=== PATIENT | male | born 1975 | race Caucasian/White ===

== ENCOUNTER 2020-01-15 14:08 | Inpatient (IN) | payer OTHER ==
[2020-01-15] MEDS ORDERED: PANTOPRAZOLE SODIUM 40 MG in SODIUM CHLORIDE 100 ML IVPB ONE (14:18)
[2020-01-15] MEDS ORDERED: SODIUM CHLORIDE 1,000 ML IV STA (14:18)
[2020-01-15 15:06] LABS: BASO % 0.4 % (0-2.0); EOS % 0.1 % (0-4.5); HEMATOCRIT 42.4 % (35.4-49); HEMOGLOBIN 14.6 GM/dL (11.7-16.9); LYMPH % 23.3 % (8-40); MCH 33.2 pg (25.7-33.7); MCHC 34.5 g/dl (32.0-35.9); MEAN CELL VOLUME 96.2 fl (80-96); MEAN PLT VOLUME 7.1 fl (7.5-11.1); MONO % 5.8 % (3.8-10.2); NEUT % 70.4 % (42.8-82.8); PLATELET COUNT 220 K/MM3 (134-434); RBC 4.41 M/mm3 (4.00-5.60)
[2020-01-15] MEDS ORDERED: PANTOPRAZOLE SODIUM 40 MG/100 ML BAG IVPB ONE (15:07)
[2020-01-15] MEDS ORDERED: LORazepam 2 MG/ML SDV VIAL ONE ×2 (15:10→16:54)
[2020-01-15 15:36] LABS: ALBUMIN 4.2 g/dl (3.4-5.0); ALK PHOS 92 U/L (45-117); ANION GAP 11 MMOL/L (8-16); BILIRUBIN,TOTAL 0.7 mg/dL (0.2-1); BLOOD UREA NITROGEN 4.7 mg/dL (7-18); CALCIUM 8.5 mg/dL (8.5-10.1); CHLORIDE 98 mmol/L (98-107); CO2 26 mmol/L (21-32); CREATININE 0.8 mg/dL (0.55-1.3); GLUCOSE,RANDOM 202 mg/dL (74-106); POTASSIUM 3.4 mmol/L (3.5-5.1); SGOT/AST 45 U/L (15-37); SGPT/ALT 45 U/L (13-61); SODIUM 135 mmol/L (136-145); TOT PROT 8.2 g/dl (6.4-8.2)
--- NOTE | 2020-01-15 16:06 | PDOC ---
Attending Attestation - Resident Resident Name: Jacob Shore - ED Attending Attestation I have performed the following: I have examined & evaluated the patient, The case was reviewed & discussed with the resident, I agree w/resident's findings & plan - HPI HPI: 01/15/20 16:01 44-year-old male with history of alcoholism and alcoholic gastritis diagnosed on endoscopy several years ago prescribed Protonix in the past but noncompliant in the setting of recurrence of alcohol abuse, now sent from [facility] for evaluation of coffee-ground emesis and melena for the last 3 days. Patient began having dark vomiting 3 days ago associated with epigastric pain and decreased p.o. intake, was seen at [place] emergency department where labs were performed and he was discharged, presented to [facility] today with withdrawal symptoms in the setting of being unable to tolerate alcohol for the last few days, then was referred here for additional episodes of hematemesis/coffee-ground emesis this morning. Patient has been diagnosed with alcoholic gastritis but was never diagnosed with cirrhosis or varices, last emesis was this morning, complaining of some epigastric discomfort but no lightheadedness or syncope. Patient has also been noncompliant with his metformin - Physicial Exam PE: 01/15/20 16:03 Afebrile, tachycardia with elevated blood pressure alert seated comfortably in stretcher, Conversant and pleasant, no jaundice or pallor Dry mucosa Heart is regular slight tachycardia, lungs are clear Epigastric discomfort to palpation without guarding or rebound Neurological exam is normal Psych is within normal limits without acute ideations or hallucinations - Critical Care Time Total Critical Care Time: 30 Critical Care Statement: The care of this patient involved high complexity decision making to prevent further life threatening deterioration of the patient's condition and/or to evaluate & treat vital organ system(s) failure or risk of failure. - Medical Decision Making 01/15/20 16:04 44-year-old male with history of alcoholism presents with hematemesis/melena for 3 days with decreased p.o. intake, referred from [facility] for evaluation of possible upper GI bleed. Question alcoholic gastritis versus PUD versus variceal bleeding, no active bleeding now and no vomiting since this morning, hemodynamically stable with benign abdominal exam. Elevated blood pressure and tachycardia on arrival suggestive of withdrawal. r/o DKA Labs, urinalysis EKG, chest x-ray IV fluids, antacid IV benzodiazepine Reassess, will need admission for endoscopy 01/15/20 16:14 hgb normal, BUN also normal glucose elevated but AG normal LFTs nl improved withdrawal sxs. proceed with admit for cbc trend and GI evaluation, withdrawal tx Discharge - Discharge Information Problems reviewed: Yes Clinical Impression/Diagnosis: Coffee ground emesis Alcohol withdrawal Qualifiers: Complication of substance-induced condition: with unspecified complication Qualified Code(s): F10.239 - Alcohol dependence with withdrawal, unspecified Alcoholic gastritis Qualifiers: Chronicity: acute Gastritis bleeding: with bleeding Qualified Code(s): K29.21 - Alcoholic gastritis with bleeding Condition: Guarded - Follow up/Referral Referrals: Rosie Clark NP [Primary Care Provider] - - Patient Discharge Instructions - Post Discharge Activity
--- NOTE | 2020-01-15 16:40 | PDOC ---
History of Present Illness - General Chief Complaint: Vomiting Blood Stated Complaint: VOMITING BLOOD Time Seen by Provider: 01/15/20 14:25 - History of Present Illness Initial Comments: 01/15/20 16:35 44 M with DM (on metformin), alcoholic dependent from [facility] for 4 days of hematemesis. He had been drinking for 3 months, 1 L of Vodka per day. He started to have tarry hematesis for the past 4 days, also complained hematochemzia. Patient complained of nausea, chest pain. Last hematesis was this morning, tarry in nature. Patient admitted to lightheadness, tinnitus, no abdominal pain. He is showing sign of alcohol withdraw in the ED: trembling of the extremities, and tongue fasciculation. PMHX: as in HPI Meds: metformin Allergies: none Tob: none Etoh: daily Rec drugs: none. PCP: dylan kern NP. ROS GENERAL/CONSTITUTIONAL: No fever or chills. No weakness. HEAD, EYES, EARS, NOSE AND THROAT: No change in vision. No ear pain or discharge. No sore throat. CARDIOVASCULAR: + chest pain no shortness of breath RESPIRATORY: No cough, wheezing, or hemoptysis. GASTROINTESTINAL: No nausea, vomiting, diarrhea or constipation. GENITOURINARY: No dysuria, frequency, or change in urination. MUSCULOSKELETAL: No joint or muscle swelling or pain. No neck or back pain. SKIN: No rash NEUROLOGIC: No headache, vertigo, loss of consciousness, or change in strength/sensation. ENDOCRINE: No increased thirst. No abnormal weight change HEMATOLOGIC/LYMPHATIC: No anemia, easy bleeding, or history of blood clots. ALLERGIC/IMMUNOLOGIC: No hives or skin allergy. PE GENERAL: Awake, alert, and fully oriented, in no acute distress HEAD: No signs of trauma, normocephalic, atraumatic EYES: PERRLA, EOMI, sclera anicteric, conjunctiva clear ENT: Auricles normal inspection, hearing grossly normal, nares patent, oropharynx clear without exudates. Moist mucosa NECK: Normal ROM, supple, no lymphadenopathy, JVD, or masses LUNGS: No distress, speaks full sentences, clear to auscultation bilaterally HEART: Regular rate and rhythm, normal S1 and S2, no murmurs, rubs or gallops, peripheral pulses normal and equal bilaterally. ABDOMEN: Soft, nontender, normoactive bowel sounds. No guarding, no rebound. No masses EXTREMITIES : Normal inspection, Normal range of motion, no edema. No clubbing or cyanosis. NEUROLOGICAL: Cranial nerves II through XII grossly intact. Normal speech, normal gait, no focal sensorimotor deficits SKIN: Warm, Dry, normal turgor, no rashes or lesions noted 01/15/20 21:44 Past History - Medical History Allergies/Adverse Reactions: Allergies Allergy/AdvReac Type Severity Reaction Status Date / Time No Known Allergies Allergy Verified 01/15/20 14:17 Home Medications: Ambulatory Orders Losartan/Hydrochlorothiazide [Losartan-Hctz 100-25 mg Tab] 1 each PO DAILY 07/13/19 Metformin HCl [Glucophage] 1,000 mg PO DAILY 07/13/19 Asthma: No Cardiac Disorders: No Diabetes: Yes GI Disorders: No Disorders: No HTN: Yes Kidney Stones: No Seizures: No - Psycho-Social/Smoking History Smoking History: Unknown if ever smoked Have you smoked in the past 12 months: Yes Number of Cigarettes Smoked Daily: 10 - Substance Abuse Hx (Audit-C & DAST Scrn) In the last yr the pt used illegal drug/Rx for NonMed reason: No Score: Yes response is considered Positive: 0 Screen Result (Positive result requires Nsg. DAST-10): Negative *Physical Exam - Vital Signs Last Vital Signs Temp Pulse Resp BP Pulse Ox 98.6 F 109 H 16 148/114 H 96 01/15/20 14:12 01/15/20 14:12 01/15/20 14:12 01/15/20 14:12 01/15/20 14:12 ED Treatment Course - LABORATORY CBC & Chemistry Diagram: 01/15/20 14:47 01/15/20 14:47 - ADDITIONAL ORDERS Additional order review: Laboratory Results 01/15/20 01/15/20 01/15/20 15:12 14:47 14:47 Sodium 135 L Potassium 3.4 L Chloride 98 Carbon Dioxide 26 Anion Gap 11 BUN 4.7 L Creatinine 0.8 Est GFR (CKD-EPI)AfAm 125.04 Est GFR (CKD-EPI)NonAf 107.88 Random Glucose 202 H Calcium 8.5 Total Bilirubin 0.7 AST 45 H ALT 45 Alkaline Phosphatase 92 Creatine Kinase 191 Creatine Kinase Index 0.5 CK-MB (CK-2) 1.0 Troponin I < 0.02 Total Protein 8.2 Albumin 4.2 Stool Occult Blood Negative Blood Type O POSITIVE 01/15/20 14:47 RBC 4.41 MCV 96.2 H MCHC 34.5 RDW 13.0 D MPV 7.1 L Neutrophils % 70.4 Lymphocytes % 23.3 Monocytes % 5.8 Eosinophils % 0.1 Basophils % 0.4 - Medications Given in the ED: ED Medications Discontinued Medications Generic Name Dose Route Start Last Admin Trade Name Rishi PRN Reason Stop Dose Admin Sodium Chloride 1,000 mls @ 1,000 mls/hr 01/15/20 14:18 01/15/20 15:51 Normal Saline - IV 01/15/20 15:17 1,000 mls/hr ASDIR STA Administration Pantoprazole Sodium 40 mg/ 100 mls @ 200 mls/hr 01/15/20 14:18 01/15/20 15:13 Sodium Chloride IVPB 01/15/20 14:47 200 mls/hr ONCE ONE Administration Medical Decision Making - Medical Decision Making 01/15/20 21:45 44 M with DM (on metformin), alcoholic dependent from [facility] for 4 days of hematemesis Ativan was given for alcohol withdraw. EKG showed sinus tachycardia , vent rate 104 , qtc 454. Basic lab work revealed stable hemoglobin 14.6, the rest is unremarkable. Trop is negative, Liver enzymes are not impressive. Rectal exam showed no soraya blood. Fecal occult test was negative. 01/15/20 21:47 GI Consult was put. Patient is admitted to the inpatient team. Dr. aCin ([facility]) wanted to have him on Reglan 10 q6, INR, A1C, Ketone, blood sugar. These orders are relayed to the IM team. I put in the Regland 10 q6h. He thinks the ground coffee emesis was due to the content from gastroparesis. 01/15/20 21:50 01/15/20 21:51 01/15/20 21:55 Discharge - Discharge Information Problems reviewed: Yes Clinical Impression/Diagnosis: Coffee ground emesis Alcohol withdrawal Qualifiers: Complication of substance-induced condition: with unspecified complication Qualified Code(s): F10.239 - Alcohol dependence with withdrawal, unspecified Alcoholic gastritis Qualifiers: Chronicity: acute Gastritis bleeding: with bleeding Qualified Code(s): K29.21 - Alcoholic gastritis with bleeding Condition: Guarded - Admission Yes - Follow up/Referral - Patient Discharge Instructions - Post Discharge Activity
[2020-01-15] MEDS ORDERED: SODIUM CHLORIDE 1,000 ML IV SCH (17:15)
[2020-01-15] MEDS ORDERED: LORazepam 1 MG TABLET PO PRN (17:19)
--- NOTE | 2020-01-15 17:24 | HP ---
CHIEF COMPLAINT: coffee ground emesis PCP: HISTORY OF PRESENT ILLNESS: Patient is a 44 y/o male with a history of DM, HTN, and alcohol abuse who presents from [facility] for coffee ground emesis. He has had three days of abdominal pain, has noted blood in his vomit. He has melena. Reports he drinks 1 pint of alcohol a day. Patient denies, fever, chills, chest pain, nausea. In ED noted to have fasicultions and lightheadedness. ER course was notable for: (1) (2) (3) Recent Travel: PAST MEDICAL HISTORY: DM, HTN, and alcohol abuse PAST SURGICAL HISTORY: denies Social History: Smoking: Alcohol: 1 pint of vodka a day Drugs: Allergies No Known Allergies Allergy (Verified 01/15/20 14:17) HOME MEDICATIONS: Home Medications Medication Instructions Recorded Losartan/Hydrochlorothiazide 1 each PO DAILY 07/13/19 [Losartan-Hctz 100-25 mg Tab] Metformin HCl [Glucophage] 1,000 mg PO DAILY 07/13/19 REVIEW OF SYSTEMS CONSTITUTIONAL: Absent: fever, chills, diaphoresis, generalized weakness, malaise, loss of appetite, weight change HEENT: Absent: rhinorrhea, nasal congestion, throat pain, throat swelling, difficulty swallowing, mouth swelling, ear pain, eye pain, visual changes CARDIOVASCULAR: Absent: chest pain, syncope, palpitations, irregular heart rate, lightheadedness, peripheral edema RESPIRATORY: Absent: cough, shortness of breath, dyspnea with exertion, orthopnea, wheezing, stridor, hemoptysis GASTROINTESTINAL: Absent: abdominal pain, abdominal distension, nausea, vomiting, diarrhea, con stipation, melena, hematochezia GENITOURINARY: Absent: dysuria, frequency, urgency, hesitancy, hematuria, flank pain, genital pain MUSCULOSKELETAL: Absent: myalgia, arthralgia, joint swelling, back pain, neck pain SKIN: Absent: rash, itching, pallor HEMATOLOGIC/IMMUNOLOGIC: Absent: easy bleeding, easy bruising, lymphadenopathy, frequent infections ENDOCRINE: Absent: unexplained weight gain, unexplained weight loss, heat intolerance, cold intolerance NEUROLOGIC: Absent: headache, focal weakness or paresthesias, dizziness, unsteady gait, seizure, mental status changes, bladder or bowel incontinence PSYCHIATRIC: Absent: anxiety, depression, suicidal or homicidal ideation, hallucinations. PHYSICAL EXAMINATION Vital Signs - 24 hr 01/15/20 14:12 Temperature 98.6 F Pulse Rate 109 H Respiratory 16 Rate Blood Pressure 148/114 H O2 Sat by Pulse 96 Oximetry (%) GENERAL: Awake, alert, and fully oriented, in no acute distress. EYES: Pupils equal, round and reactive to light, extraocular movements intact, LUNGS: Breath sounds equal, clear to auscultation bilaterally. No wheezes, and no crackles. No accessory muscle use. HEART: Regular rate and rhythm, normal S1 and S2 without murmur, rub or gallop. ABDOMEN: Soft, nontender, not distended, normoactive bowel sounds, no guarding, no rebound, no masses. : preformed by ED resident, deffered second one MUSCULOSKELETAL: No CVA tenderness. LOWER EXTREMITIES: 2+ pulses, warm, well-perfused. No calf tenderness. No peripheral edema. PSYCHIATRIC: Cooperative. Good eye contact. Appropriate mood and affect. SKIN: Warm, dry, normal turgor, no rashes or lesions noted, normal capillary refill. CBC, BMP 01/15/20 14:47 01/15/20 14:47 ASSESSMENT/PLAN: Patient is a 44 y/o male with a history of DM, HTN, and alcohol abuse with cirrh osis who presents from [facility] for coffee ground emesis. #Coffee ground emesis/ upper GI bleed - hx cirrhosis, cannot exclude varices - protonix drip, MAPs stable for tele - consult GI - keep NPO - add reglan #alcohol abuse - librium taper for detox - AST mildly elevated, continue to trend - avoid hepatotoxic agents #hx DM - BGMS - SS #HTN - hold antihypertensive while question of actively bleeding Dispo: monitor on tele * patient needs to be med rec'd Family Medical History Family History: As Documented Visit type - Emergency Visit Emergency Visit: Yes ED Registration Date: 01/15/20 Care time: The patient presented to the Emergency Department on the above date and was hospitalized for further evaluation of their emergent condition. - New Patient This patient is new to me today: Yes Date on this admission: 01/16/20 - Critical Care Critical Care patient: No ATTENDING PHYSICIAN STATEMENT I saw and evaluated the patient. I reviewed the resident's note and discussed the case with the resident. I agree with the resident's findings and plan as documented. SUBJECTIVE: OBJECTIVE: ASSESSMENT AND PLAN:
[2020-01-15] MEDS: INSULIN SLIDING SCALE (NOVOLOG) 1 VIAL SQ SCH ×2 (17:44→23:43)
[2020-01-15] MEDS ORDERED: LACTATED RINGERS SOLUTION 1,000 ML/1,000 ML INFUS.BAG IV SCH (18:30)
--- OUTSIDE RECORDS SUMMARY | 2020-01-15 18:30 | XMS ---
:1975 Author Organization [facility] Care Team Providers Name Role Phone MERY BOSTON MD IP Unavailable LUDY AMADOR, IP Unavailable LUDY AMADOR, IP Unavailable LUDY AMADOR, IP Unavailable LUDY AMADOR, IP Unavailable LUDY AMADOR, IP Unavailable GOOD LEG MAN Unavailable GOOD LEG MAN Unavailable GOOD LEG MAN Unavailable GOOD LEG MAN Unavailable GOOD LEG MAN Unavailable MD Vandana Unavailable Unavailable Prieto Unavailable SPAIN DPM Unavailable DOROTHY KingP Unavailable Unavailable CASE Pitts Unavailable Unavailable DEIDRA RD Unavailable Unavailable JANELL ASSOCIATE AUTOMATION ENGINEER, M Unavailable + GRINION ASSOCIATE AUTOMATION ENGINEER, M Unavailable + GRINION ASSOCIATE AUTOMATION ENGINEER, M Unavailable China DO Unavailable Unavailable DO Jesse Unavailable Unavailable MD Sahil Unavailable Unavailable MIKE PA Unavailable LEAVELLE PA Unavailable LEAVELLE PA Unavailable + LEAVELLE PA Unavailable CASE Hart Unavailable Unavailable ANAND AMADOR Unavailable MD Khalif Unavailable Unavailable MD Khalif Unavailable Unavailable CARTER DDS Unavailable Patel Ramos DO Unavailable Unavailable Re-disclosure Warning The records that you are about to access may contain information from federally- assisted alcohol or drug abuse programs. If such information is present, then the following federally mandated warning applies: This information has been disclosed to you from records protected by federal confidentiality rules (42 CFR part 2). The federal rules prohibit you from making any further disclosure of this information unless further disclosure is expressly permitted by the written consent of the person to whom it pertains or as otherwise permitted by 42 CFR part 2. A general authorization for the release of medical or other information is NOT sufficient for this purpose. The Federal rules restrict any use of the information to criminally investigate or prosecute any alcohol or drug abuse patient.The records that you are about to access may contain highly sensitive health information, the redisclosure of which is protected by Article 27-F of the [facility] Public Health law. If you continue you may haveaccess to information: Regarding HIV / AIDS; Provided by facilities licensed or operated by the [facility] Office of Mental Health; or Provided by the [facility] Office for People With Developmental Disabilities. If such information is present, then the following [facility] mandated warning applies: This information has been disclosed to you from confidential records which are protected by state law. State law prohibits you from making any further disclosure of this information without the specific written consent of the person to whom it pertains, or as otherwise permitted by law. Any unauthorized further disclosure in violation of state law may result in a fine or retirement sentence or both. A general authorization for the release of medical or other information is NOT sufficient authorization for further disclosure. 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 Status Observation Data S ource(s) Description Advance No completed [place] [facility] [facility] Advance No [facility] [place] [facility] [facility] Advance No completed [place] [facility] Allergies and Adverse Reactions Type Description Substance Reaction Status Data Source(s ) Drug allergy No Known No Known NKA NO KNOWN [place] All[facility]ergies [facility] Allergy to No Known No known MAGALI (Moun t substance Allergies allergies [place] (situation) [facility]) Allergy to No Known No known MAGALI (Moun t substance Allergies allergies [place] (situation) [facility]) Allergy to No Known No known MAGALI (Moun t substance Allergies allergies [place] (situation) [facility]) No Known No Known No Known eCW2 (Form Allergies Allergies Allergies [facility]) Encounters Encounter Providers Location Date Indications Data Source(s ) Emergency Attender: Cherise 01/11/2020 VOMITING BLOOD [place] [facility]:34[facility] - 01/11/2020 06:15:00 PM EDT VOMITING BLOOD AM-EMPRESS Patient discharged. Inpatient Attender: Opal Ramos 12/16/2019 ALCOHOL W [facility] DOAttender: Aurelia 03:30:00 PM EDT - WITHDRAW [facility] MDAttender: 12/19/2019 Eliseo 10:37:00 AM EDT SchmittAdmitter: Opal Ramos DOConsultant: Katarina Ross MD ALCOHOL WITHDRAWAL Patient discharged. Emergency Attender: Vernon 10/31/2019 11:59:00 ALCHOHOL WIT HDRAWAL [place] [facility] AM EDT - 10/31/2019 ARR-AUTO Hospi kitty 01:17:00 PM EDT ALCHOHOL WITHDRAWAL ARR-AUTO Patient discharged. Forme Urgent Forme Urgent 06/26/2019 eCW2 (Form Care and Care and 12:00:00 AM Medical Joaquín r [facility] Wellness EST Urgent Care) Center Center Outpatient<t Attender: Laurel 05/28/2019 Degeneration of [place] ([facility] 10:30:00 AM Mathew Joe ID="sai MICHEL MD EST - MyopicDiabetes [place] goff rTypeDescrip 05/28/2019 Mellitus Type 2 - Healt [facility]) tionID0">OFF 11:59:00 PM Uncomplicated, ICE EST Controlled VISIT</td><t d>LAVERN MICHEL MD</td><td>[facility]</td>< td> 0</td><td><c ontent ID="encounte rDiagnosisID 0-0">Diabete s Mellitus Type 2 - Uncomplicate d, Controlled</ content>, <content ID="encounte rDiagnosisID 0-1">Degener ation of [place] Myopic</cont ent></td> Degeneration of [place] Myopic Diabetes Mellitus Type 2 - Uncomplicated , Controlled Outpatient<td Attender: 05/24/2019 MAGALI ID="encounterTypeDescriptionID1">[Patient AARON 05:08 :00 PM (Zach Diaz Encounter]</td><td>AARON MIKE MCKEON EST - Neighborhood PA</td><td> PA 05/24/2019 Health </td><td>05/24/2019</td><td></td> 11:59:00 PM [place]) EST Outpatient<td Attender: Isaiah 05/22/2019 [place] ID="encounterTypeDescriptionID2">COMPLETE AARON centeno 10:00 :00 AM ssme (Zach Diaz PHYSICAL EXAM</td><td>AARON BRITTNEYJANAE BRITTNEYJANAE Healt EST - n t Neighborhood PA</td><td>[facility] PA h 05/22/2019 [use Health [place]</td><td>05/22/2019</td><td><content Centlizzie 11:3 0:18 AM For Center) ID="encounterDiagnosisID2-0">Routine r EST S.o. History and Physical</content>, <content a.p. ID="encounterDiagnosisID2-1">Assessment Note [use For S.o.a.p. Note Free Free Text]</content></td> Text ]Rou nakul Hist ory and Phys ical Asse ssme nt [use For S.o. a.p. Note Free Text ]Rou nakul Hist ory and Phys ical Assessment [use For S.o.a.p. Note Free T ext] Routine History and Physical Assessment [use For S.o.a.p. Note Free T ext] Routine History and Physical Inpatient Attender: Alexandre 02/26/2019 CHEST PAIN, [place] Khalif MDAttender: 08:37:00 AM EST - ALCOHOL W [facility] 03/01/2019 DOAttender: Gebe 10:42:00 AM EST Jesse DOAdmitter: Alexandre Khalif MDConsultant: Katarina Ross MD CHEST PAIN, ALCOHOL WITHDRAWAL Patient discharged. Outpatient<td Attender: [facility] 04/03/2018 [place] ID="encounterTypeDescriptionID3">*No [facility] 04:45:00 P M (Cathay Show*</td><td>[facility] EST - Neighborhood LEG MAN</td><td>[facility] 04/03/2018 Health Center</td><td>04/03/2018</td><td></td> 11:59:0 0 PM Center) EST Outpatient<td Attender: [facility] 03/13/2018 D [place] ID="encounterTypeDescriptionID4">COMPLET [facility] 11:30: 00 AM i (Cathay E PHYSICAL EXAM</td><td>TRAN [facility] EST - a Neighborhood LEG MAN</td><td>[facility] 03/13/2018 b Health Center</td><td>03/13/2018</td><td><asya 01:05: 01 PM e Center) nt ID="encounterDiagnosisID4-0">Routine EST t History and Physical Adult (18 - 64 e Yrs)</content>, <content s ID="encounterDiagnosisID4-1">Preventive M Med Standardized Depression Screening: e Negative For Symptoms</content>, l <content l ID="encounterDiagnosisID4-2">Hypertensio i n (systemic)</content>, <content t ID="encounterDiagnosisID4-3">Hyperlipide u [place]</content>, <content s ID="encounterDiagnosisID4-4">Diabetes T Mellitus Type 2 Without y Complication</content>, <content p ID="encounterDiagnosisID4-5">Gerd</asya e nt></td> 2 W i t h o u t C o m p l i c a t i o n P r e v e n t i v e M e d S t a n d a r d i z e d D e p r e s s i o n S c r e e n i n g : N e g a t i v e F o r S y m p t o m s R o u t i n e H i s t o r y a n d P h y s i c a l A d u l t ( 4 Y r s ) D i a b e t e s M e l l i t u s T y p e 2 W i t h o u t C o m p l i c a t i o n P r e v e n t i v e M e d S t a n d a r d i z e d D e p r e s s i o n S c r e e n i n g : N e g a t i v e F o r S y m p t o m s R o u t i n e H i s t o r y a n d P h y s i c a l A d u l t ( 4 Y r s ) D i a b e t e s M e l l i t u s T y p e 2 W i t h o u t C o m p l i c a t i o n R o u t i n e H i s t o r y a n d P h y s i c a l A d u l t ( 4 Y r s ) G e r d G e r d G e r d P r e v e n t i v e M e d S t a n d a r d i z e d D e p r e s s i o n S c r e e n i n g : N e g a t i v e F o r S y m p t o m s H y p e r t e n s i o n ( s y s t e m i c ) H y p e r t e n s i o n ( s y s t e m i c ) H y p e r t e n s i o n ( s y s t e m i c ) H y p e r l i p i d e m i a H y p e r l i p i d e m i a H y p e r l i p i d e m i a Diabetes Mellitus Type 2 Without Complic ation Preventive Med Standardized Depression S creening: Negative For Symptoms Routine History and Physical Adult (18 - 64 Yrs) Diabetes Mellitus Type 2 Without Complic ation Preventive Med Standardized Depression S creening: Negative For Symptoms Routine History and Physical Adult (18 - 64 Yrs) Diabetes Mellitus Type 2 Without Complic ation Routine History and Physical Adult (18 - 64 Yrs) Gerd Gerd Gerd Preventive Med Standardized Depression S creening: Negative For Symptoms Hypertension (systemic) Hypertension (systemic) Hypertension (systemic) Hyperlipidemia Hyperlipidemia Hyperlipidemia Outpatient<td Attender: [facility] 09/26/2017 [place] ID="encounterTypeDescriptionID5">*No [facility] 05:30:00 P M (Cath[place] Show*</td><td>TRAN [facility] Center EDT - Neighborhood LEG MAN</td><td>[facility] 09/26/2017 Health Center</td><td>09/26/2017</td><td></td> 11:59:0 0 PM Center) EDT Outpatient<td Attender: [facility] 06/27/2017 P MAGALI ID="encounterTypeDescriptionID6">OFFICE [facility] 11:30:0 0 AM r (Cathay VISIT</td><td>TRAN GOOD LEG MAN Center EST - e Neighborhood LEG MAN</td><td>[facility] 06/27/2017 v Health Center</td><td>06/27/2017</td><td><asya 01:05: 24 PM e Center) nt EST n ID="encounterDiagnosisID6-0">Hypertensio t n (systemic)</content>, <content i ID="encounterDiagnosisID6-1">Hyperlipide v [place]</content>, <content e ID="encounterDiagnosisID6-2">Diabetes M Mellitus Type 2 Without e Complication</content>, <content d ID="encounterDiagnosisID6-3">Gerd</asya S nt>, <content t ID="encounterDiagnosisID6-4">Preventive a Med Standardized Depression Screening: n Negative For Symptoms</content>, d <content a ID="encounterDiagnosisID6-5">Elevated r Liver Enzymes</content></td> d i z e d D e p r e s s i o n S c r e e n i n g : N e g a t i v e F o r S y m p t o m s D i a b e t e s M e l l i t u s T y p e 2 W i t h o u t C o m p l i c a t i o n P r e v e n t i v e M e d S t a n d a r d i z e d D e p r e s s i o n S c r e e n i n g : N e g a t i v e F o r S y m p t o m s D i a b e t e s M e l l i t u s T y p e 2 W i t h o u t C o m p l i c a t i o n D i a b e t e s M e l l i t u s T y p e 2 W i t h o u t C o m p l i c a t i o n G e r d G e r d G e r d E l e v a t e d L i v e r E n z y m e s E l e v a t e d L i v e r E n z y m e s E l e v a t e d L i v e r E n z y m e s P r e v e n t i v e M e d S t a n d a r d i z e d D e p r e s s i o n S c r e e n i n g : N e g a t i v e F o r S y m p t o m s H y p e r t e n s i o n ( s y s t e m i c ) H y p e r t e n s i o n ( s y s t e m i c ) H y p e r t e n s i o n ( s y s t e m i c ) H y p e r l i p i d e m i a H y p e r l i p i d e m i a H y p e r l i p i d e m i a Preventive Med Standardized Depression S creening: Negative For Symptoms Diabetes Mellitus Type 2 Without Complic ation Preventive Med Standardized Depression S creening: Negative For Symptoms Diabetes Mellitus Type 2 Without Complic ation Diabetes Mellitus Type 2 Without Complic ation Gerd Gerd Gerd Elevated Liver Enzymes Elevated Liver Enzymes Elevated Liver Enzymes Preventive Med Standardized Depression S creening: Negative For Symptoms Hypertension (systemic) Hypertension (systemic) Hypertension (systemic) Hyperlipidemia Hyperlipidemia Hyperlipidemia Outpatient<td Attender: [facility] 05/23/2017 [place] ID="encounterTypeDescriptionID7">*[facility] 04:55:00 P M (Zach Diaz Show*</td><td>TRAN [facility] Center EST - Neighborhood LEG MAN</td><td>[facility] 05/23/2017 Health Center</td><td>05/23/2017</td><td></td> 11:59:0 0 PM Center) EST Outpatient<td Attender: [facility] 05/02/2017 MAGALI ID="encounterTypeDescriptionID8">[[facility] 10:39: 00 AM (Zach Diaz t Encounter]</td><td>TRAN GOOD LEG MAN Center EST - Neighborhood LEG MAN</td><td>[facility] 05/02/2017 Health Center</td><td>05/02/2017</td><td></td> 11:59:0 0 PM Center) EST Outpatient<td Attender: [facility] 04/11/2017 R MAGALI ID="encounterTypeDescriptionID9">COMPLET [facility] 03:00: 00 PM o (Zach Diaz E PHYSICAL EXAM</td><td>TRAN GOOD LEG MAN Center EST - u Neighborhood LEG MAN</td><td>[facility] 04/11/2017 t Health Center</td><td>04/11/2017</td><td><asya 04:21: 20 PM i Center) nt EST n ID="encounterDiagnosisID9-0">Overweight< e /content>, <content H ID="encounterDiagnosisID9-1">Preventive i Med Standardized Depression Screening: s Negative For Symptoms</content>, t <content o ID="encounterDiagnosisID9-2">Routine r History and Physical Adult (18 - 64 y Yrs)</content></td> a n d P h y s i c a l A d u l t ( 8 - 4 Y r s ) P r e v e n t i v e M e d S t a n d a r d i z e d D e p r e s s i o n S c r e e n i n g : N e g a t i v e F o r S y m p t o m s O v e r w e i g h t R o u t i n e H i s t o r y a n d P h y s i c a l A d u l t ( 8 - 4 Y r s ) P r e v e n t i v e M e d S t a n d a r d i z e d D e p r e s s i o n S c r e e n i n g : N e g a t i v e F o r S y m p t o m s O v e r w e i g h t R o u t i n e H i s t o r y a n d P h y s i c a l A d u l t ( 8 - 4 Y r s ) O v e r w e i g h t P r e v e n t i v e M e d S t a n d a r d i z e d D e p r e s s i o n S c r e e n i n g : N e g a t i v e F o r S y m p t o m s Routine History and Physical Adult (18 - 64 Yrs) Preventive Med Standardized Depression S creening: Negative For Symptoms Overweight Routine History and Physical Adult (18 - 64 Yrs) Preventive Med Standardized Depression S creening: Negative For Symptoms Overweight Routine History and Physical Adult (18 - 64 Yrs) Overweight Preventive Med Standardized Depression S creening: Negative For Symptoms Outpatient<td Attender: [facility] 12/06/2016 MAGALI ID="[id number]">DENTAL [facility] 11:30: 00 AM (Cathay INITIAL VISIT</td><td>NILSA CARTER CARTER DDS Center EDT - Neighborhood DDS</td><td>[facility] 12/06/2016 Health Center</td><td>12/06/2016</td><td></td> 11:59:0 0 PM Center) EDT Forme Specialty Medicine - (GM) Internal Forme 2016 eCW2 (Form Medicine Urgent Care 12:00:00 AM Medical and EDT Center & Wellness Urgent Care) Center Outpatient<td Attender: [facility] 10/11/2016 MAGALI ID="[id number]">*No [facility] 05:16:00 PM (Cathay Show*</td><td>TRAN [facility] Center EDT - Neighborhood LEG MAN</td><td>[facility] 10/11/2016 Health Center</td><td>10/11/2016</td><td></td> 11:59:0 0 PM Center) EDT Outpatient<td Attender: [facility] 08/16/2016 MAGALI ID="[id number]">DENTAL [facility] 03:30: 00 PM ([place] INITIAL VISIT</td><td>[facility] Center EDT - Neighborhood DDS</td><td>[facility] 08/16/2016 Health Center</td><td>08/16/2016</td><td></td> 11:59:0 0 PM Center) EDT Outpatient<td Attender: [facility] 07/12/2016 E MAGALI ID="[id number]">OFFICE [facility] 02:30: 00 PM l ([place] VISIT</td><td>TRAN GOOD LEG MAN Center EDT - e Neighborhood LEG MAN</td><td>[facility] 07/12/2016 v Health Center</td><td>07/12/2016</td><td><conten 04:24 :48 PM a Center) t EDT t ID="uyyiooputKtrrgtvunVA02-2">Overweight< e /content>, <content d ID="wzodguyevMspheliuqET00-3">Diabetes L Mellitus Type 2 Without i Complication</content>, <content v ID="xgassefsoUhsckbvxmWV03-9">Hyperlipide e [place]</content>, <content r ID="mbecymhshFstivmnchGO39-8">Elevated E Liver Enzymes</content></td> n z y m e s D i a b e t e s M e l l i t u s T y p e 2 W i t h o u t C o m p l i c a t i o n O v e r w e i g h t E l e v a t e d L i v e r E n z y m e s D i a b e t e s M e l l i t u s T y p e 2 W i t h o u t C o m p l i c a t i o n O v e r w e i g h t E l e v a t e d L i v e r E n z y m e s D i a b e t e s M e l l i t u s T y p e 2 W i t h o u t C o m p l i c a t i o n O v e r w e i g h t H y p e r l i p i d e m i a H y p e r l i p i d e m i a H y p e r l i p i d e m i a Elevated Liver Enzymes Diabetes Mellitus Type 2 Without Complic ation Overweight Elevated Liver Enzymes Diabetes Mellitus Type 2 Without Complic ation Overweight Elevated Liver Enzymes Diabetes Mellitus Type 2 Without Complic ation Overweight Hyperlipidemia Hyperlipidemia Hyperlipidemia Outpatient<td Attender: [place] 06/28/2016 Diabetes Mellitus Type 2 Without [place] ID="[id number]">OFFICE [facility] 03:45:00 PM ComplicationOverweightDiabetes ([place] VISIT</td><td>TRAN GOOD LEG MAN</td><td>[place] GOOD LEG MAN No ter EST - Mellitus Type 2 Without [facility]</td><td>06/28/2016</td><td><content 06/28/2016 [facility] ID="zaanirostYoxhuwukkYR46-9">Overweight</content>, 04:48:16 PM Mellitus Type 2 Without Center) <content ID="qolpxollvRhmlgyxrhAQ21-6">Diabetes EST ComplicationOverweightEssential Mellitus Type 2 Without Complication</content>, HypertensionEssential <content ID="vfxoxwlhpHtkjmhkupRD68-2">Essential HypertensionEssential Hypertension</content></td> Hyperten royal Diabetes Mellitus Type 2 Without Complic ation Overweight Diabetes Mellitus Type 2 Without Complic ation Overweight Diabetes Mellitus Type 2 Without Complic ation Overweight Essential Hypertension Essential Hypertension Essential Hypertension Outpatient<td Attender: [facility] 04/06/2016 Anisometropia Both GRE [place]WAY ID="[id number]">OFFICE [facility] 01:00:00 PM EyesRefractive Error - ([place] VISIT</td><td>CAMPO ANAND MICHEL MD Center EST - Myopia Neighborhood </td><td>[facility] 04/06/2016 [facility]</td><td>04/06/2016</td><td><content 03:3 8:23 PM Both EyesRefractive Center) ID="dpfmbzywsIyvnxbowaWU54-3">Refractive EST Error - Myopia Error - Myopia Bilateral</content>, <content BilateralAnisometropia ID="tysnqqsdhZdnshhmjdEY63-2">Anisometropia Both EyesRefractive Both Eyes</content></td> Error - Jude benny Bilateral 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 Outpatient<td ID="lxomxdbstKltqQcgfjzjaqnyAA03">OFFICE Attender: [facility] 03/10/2016 Diabetes Mellitus Type 2 Without ComplicationDiabetes [place] VISIT</td><td>TRAN MOYER</td><td>[facility] TRAN [facility] 01:00:00 PM Mellitus Type 2 Without ComplicationDiabetes Mellitus ([facility]</td><td>03/10/2016</td><td><content [place] LEG MAN Cent er EST - Type 2 Without ComplicationHypertension Neighborhood ID="cttoszgkqYxfgsebbqDT37-0">Hyperlipidemia</content>, 03/10/2016 (systemic)Hypertension (systemic)Hypertension Health <content ID="kymnaorrmRjginnwovDY77-7">Diabetes 02:07:35 PM (systemic)HyperlipidemiaHyperlipidemiaHyperlipidemia Center) Mellitus Type 2 Without Complication</content>, EST <content ID="sydcozgdwTydsvtyikBX33-6">Hypertension (systemic)</content></td> Diabetes Mellitus Type 2 Without Complic ation Diabetes Mellitus Type 2 Without Complic ation Diabetes Mellitus Type 2 Without Complic ation Hypertension (systemic) Hypertension (systemic) Hypertension (systemic) Hyperlipidemia Hyperlipidemia Hyperlipidemia Outpatient<td Attender: R [facility] 02/23/2016 Preventive Medicine [facility] ID="[id number]">COMPLETE [facility] 02:30:00 PM Screening For (Zach Diaz PHYSICAL EXAM</td><td>TRAN [facility] Center EDT - DepressionPreventive [facility]</td><td>[facility] 02/23/2016 Med [facility]</td><td>02/23/2016</td><td><content 03:4 0:09 PM Depression Screening: Center) ID="gzdwvudsfFlvfodvulRG19-7">Preventive EDT Negative For Med Standardized Depression Screening: SymptomsPreventive Negative For Symptoms</content>, <content Medicine Screening For ID="ctcpfkoyzNcxahcaroQH15-7">Routine DepressionHypertension History and Physical Adult (18 - 64 (systemic)Routine Yrs)</content>, <content History and Physical ID="rjiqmhdevGdlomfzqqYK98-9">Hypertension Adult (18 - 64 (systemic)</content>, <content Yrs)P reventive Med ID="rwaxdnaycEmqmmgzxyES82-8">Preventive Standardized Depression Medicine Screening For Screening: Ne gative For Depression</content></td> SymptomsPr eventive Medicine Screening For DepressionHypertension (systemic)Routine History and Physical Adult (18 - 64 Yrs)Preventive Med Standardized Depression Screening: Negative For SymptomsHypertension (systemic)Routine History and Physical Adult (18 - 64 Yrs) Preventive Medicine Screening For Depres royal Preventive Med Standardized Depression S creening: Negative For Symptoms Preventive Medicine Screening For Depres royal Hypertension (systemic) Routine History and Physical Adult (18 - 64 Yrs) Preventive Med Standardized Depression S creening: Negative For Symptoms Preventive Medicine Screening For Depres royal Hypertension (systemic) Routine History and Physical Adult (18 - 64 Yrs) Preventive Med Standardized Depression S creening: Negative For Symptoms Hypertension (systemic) Routine History and Physical Adult (18 - 64 Yrs) Outpatient<td Attender: [facility] 02/23/2016 [place] ID="[id number]">PATIENT [facility] 09:04 :00 AM (Cathay ADVOCACY</td><td>[facility] EDT - Ne [facility]</td><td>[facility] 02/23/2016 [facility]</td><td>02/23/2016</td><td></td> 11:59:0 0 PM Center) EDT Outpatient<td Attender: [facility] 04/22/2015 R [place] ID="[id number]">INITIAL [facility] 02:30 :00 PM e ([place] VISIT</td><td>CAMPO ANAND MICHEL MD Center EST - [facility] </td><td>[facility] 04/22/2015 [facility]</td><td>04/22/2015</td><td><content 03:1 6:53 PM a [place]) ID="gxntilbsdTasdximdgLB60-4">Diabetes EST c Mellitus Type 2 Without t Complication</content>, <content i ID="iogeqyuqfJgkweskucAC81-5">Diabetes v Mellitus Type 2 - Uncomplicated, e Uncontrolled</content>, <content E ID="[id number]">Anisometropi r a Right Eye</content>, <content r ID="[id number]">Refractive o Error - Myopia Axial</content></td> r - M y o p i a A x i a l A n i s o m e t r o p i a R i g h t E y e D i a b e t e s M e l l i t u s T y p e 2 - U n c o m p l i c a t e d , U n c o n t r o l l e d D i a b e t e s M e l l i t u s T y p e 2 W i t h o u t C o m p l i c a t i o n R e f r a c t i v e E r r o r - M y o p i a A x i a l A n i s o m e t r o p i a R i g h t E y e D i a b e t e s M e l l i t u s T y p e 2 - U n c o m p l i c a t e d , U n c o n t r o l l e d D i a b e t e s M e l l i t u s T y p e 2 W i t h o u t C o m p l i c a t i o n R e f r a c t i v e E r r o r - M y o p i a A x i a l A n i s o m e t r o p i a R i g h t E y e D i a b e t e s M e l l i t u s T y p e 2 - U n c o m p l i c a t e d , U n c o n t r o l l e d D i a b e t e s M e l l i t u s T y p e 2 W i t h o u t C o m p l i c a t i o n Refractive Error - Myopia Axial Anisometropia Right Eye Diabetes Mellitus Type 2 - Uncomplicated , Uncontrolled Diabetes Mellitus Type 2 Without Complic ation Refractive Error - Myopia Axial Anisometropia Right Eye Diabetes Mellitus Type 2 - Uncomplicated , Uncontrolled Diabetes Mellitus Type 2 Without Complic ation Refractive Error - Myopia Axial Anisometropia Right Eye Diabetes Mellitus Type 2 - Uncomplicated , Uncontrolled Diabetes Mellitus Type 2 Without Complic ation Outpatient<td ID="[id number]">Follow Attender: [facility] 04/11/2015 [facility]</td><td>TRAN MOYER</td><td>[facility] 03:15:00 PM HypertensionEssential [facility]</td><td>04/11/2015</td><td>louise GOOD [facility] EST - HypertensionDiabetes Mellitus Type 2 Neighborhood ID="[id number]">Overweight</content>, 04/11/2015 Without Health <content ID="[id number]">Essential 05:09:11 PM [facility]) Hypertension</content>, <content EST Maite litus Type 2 Without ID="[id number]">Hyperlipidemia</content>, ComplicationOverweightDiabetes <content ID="[id number]">Diabetes Mellitus Mellitus Type 2 Without Type 2 Without Complication</content></td> ComplicationOverweightHyperlipidemiaH yperlipidemiaHyperlipidem ia Essential Hypertension Essential Hypertension Essential Hypertension Diabetes Mellitus Type 2 Without Complic ation Overweight Diabetes Mellitus Type 2 Without Complic ation Overweight Diabetes Mellitus Type 2 Without Complic ation Overweight Hyperlipidemia Hyperlipidemia Hyperlipidemia Outpatient<td Attender: [facility] 03/18/2015 [place] ID="[id number]">*No [facility] 04:30:00 PM (Zach Diaz Show*</td><td>TRAN GOOD [facility] EST - Neighborhood LEG MAN</td><td>[facility] 03/18/2015 Health Center</td><td>03/18/2015</td><td></td> 11:59:0 0 PM Center) EST Outpatient<td Attender: [facility] 03/04/2015 P BOLCK[place] ID="[id number]">[facility] 10:15: 00 AM r (Zach Diaz TE PHYSICAL EXAM</td><td>TRAN GOOD [facility] EST - e Neighborhood LEG MAN</td><td>[facility] 03/04/2015 v Health Center</td><td>03/04/2015</td><td><asya 01:46: 07 PM e Center) nt EST n ID="[id number]">Overweight t </content>, <content i ID="[id number]">Preventive v Med Standardized Depression Screening: e Negative For Symptoms</content>, M <content e ID="[id number]">Routine d History and Physical Adult (18 - 64 S Yrs)</content>, <content t ID="[id number]">Alcohol a Abuse</content>, <content n ID="[id number]">Hyperlipid d emia</content></td> a r d i z e d D e p r e s s i o n S c r e e n i n g : N e g a t i v e F o r S y m p t o m s H y p e r l i p i d e m i a A l c o h o l A b u s e R o u t i n e H i s t o r y a n d P h y s i c a l A d u l t ( 8 - 4 Y r s ) P r e v e n t i v e M e d S t a n d a r d i z e d D e p r e s s i o n S c r e e n i n g : N e g a t i v e F o r S y m p t o m s O v e r w e i g h t H y p e r l i p i d e m i a A l c o h o l A b u s e R o u t i n e H i s t o r y a n d P h y s i c a l A d u l t ( 8 - 4 Y r s ) P r e v e n t i v e M e d S t a n d a r d i z e d D e p r e s s i o n S c r e e n i n g : N e g a t i v e F o r S y m p t o m s O v e r w e i g h t H y p e r l i p i d e m i a A l c o h o l A b u s e R o u t i n e H i s t o r y a n d P h y s i c a l A d u l t ( 8 - 4 Y r s ) O v e r w e i g h t Preventive Med Standardized Depression S creening: Negative For Symptoms Hyperlipidemia Alcohol Abuse Routine History and Physical Adult (18 - 64 Yrs) Preventive Med Standardized Depression S creening: Negative For Symptoms Overweight Hyperlipidemia Alcohol Abuse Routine History and Physical Adult (18 - 64 Yrs) Preventive Med Standardized Depression S creening: Negative For Symptoms Overweight Hyperlipidemia Alcohol Abuse Routine History and Physical Adult (18 - 64 Yrs) Overweight Outpatient<td Attender: [facility] 02/04/2015 BOLCK[place] ID="[id number]">*No [facility] 06:03:00 PM (Cathay Show*</td><td>TRAN FLORENT[place] GOOD LEG MAN Center EDT - Neighborhood LEG MAN</td><td>[facility] 02/04/2015 Health Center</td><td>02/04/2015</td><td></td> 11:59:0 0 PM Center) EDT Outpatient<td Attender: [facility] 11/05/2014 BOLCKOW ID="[id number]">*No [facility] 12:37:00 PM (Cathay Show*</td><td>MARLYN MACIEL [place] EDT - Neighborhood ASSOCIATE AUTOMATION ENGINEER</td><td>[facility] 11/05/2014 Health Center</td><td>11/05/2014</td><td></td> 11:59:0 0 PM Center) EDT Outpatient<td Attender: 05/30/2014 MAGALI ID="[id number]">*Rocío ORDONEZ 05:40: 00 PM (Cathay Update*</td><td>MERY [place] EST - Neighborhood </td><td> 05/30/2014 [facility] </td><td>05/30/2014</td><td></td> 11:59:00 PM Center) EST Outpatient<td Attender: [facility] 02/13/2014 BOLCKOW ID="[id number]">Follow [facility] 03:14: 00 PM (Cathay Up</td><td>LAVERN MICHEL MD Center EDT - Neighborhood </td><td>[facility] 02/13/2014 Health Center</td><td>02/13/2014</td><td></td> 11:59:0 0 PM Center) EDT Outpatient<td Attender: [facility] 01/01/2014 B[place]CK[place] ID="[id number]">Result [facility] 02:23: 00 PM (Cathay s Only</td><td>[facility] EDT - [facility] ASSOCIATE AUTOMATION ENGINEER</td><td>[facility] 01/01/2014 Health Center</td><td>01/01/2014</td><td></td> 03:33:3 9 PM Center) EDT Outpatient<td Attender: [facility] 12/17/2013 BOLCKOW ID="[id number]">*Chart [facility] 09:20: 00 AM (Cathay Update*</td><td>[facility] EDT - [facility]</td><td>[facility] 12/17/2013 Health Center</td><td>12/17/2013</td><td></td> 11:59:0 0 PM Center) EDT Outpatient<td Attender: [facility] 11/27/2013 R MAGALI ID="[id number]">COMPLE [facility] 03:25: 00 PM o (Zach Diaz TE PHYSICAL EXAM</td><td>[facility] EDT - u [facility]</td><td>[facility] 4 t Health Center</td><td>11/27/2013</td><td><asya 04:39: 45 PM i Center) nt ID="[id number]">Routine EDT n History and Physical</content></td> e H i s t o r y a n d P h y s i c a l R o u t i n e H i s t o r y a n d P h y s i c a l R o u t i n e H i s t o r y a n d P h y s i c a l Routine History and Physical Routine History and Physical Routine History and Physical Outpatient<td Attender: [facility] 04/10/2013 MAGALI ID="[id number]">Follow [facility] 01:20: 00 PM (Zach Diaz Up</td><td>[facility] EST - Neighborhood ASSOCIATE AUTOMATION ENGINEER</td><td>[facility] 04/10/2013 Health Center</td><td>04/10/2013</td><td></td> 02:53:1 2 PM Center) EST Outpatient<td Attender: [facility] 04/02/2013 MAGALI ID="[id number]">Follow [facility] 02:05: 00 PM (Zach Diaz Up</td><td>[facility] Center EST - [address]</td><td>[facility] 04/02/2013 Health Center</td><td>04/02/2013</td><td></td> 11:59:0 0 PM Center) EST Outpatient<td Attender: [facility] 04/02/2013 MAGALI ID="[id number]">[facility] 09:16:00 AM (Zach Diaz Results Only</td><td>[facility] EST - Neighborhood ASSOCIATE AUTOMATION ENGINEER</td><td>[facility] 04/02/2013 Health Center</td><td>04/02/2013</td><td></td> 11:59:0 0 PM Center) EST Outpatient<td Attender: [facility] 03/20/2013 BOLCKOW ID="[id number]">COMPLET [facility] 02:23 :00 PM (Zach Diaz E PHYSICAL EXAM</td><td>[facility] ASS[facility]IATE AUTOMATION ENGINEER</td><td>[facility] 3 Health Center</td><td>03/20/2013</td><td></td> 04:38:1 8 PM Center) EST Outpatient<td Attender: [facility] 2012 MAGALI ID="[id number]">INITIAL [facility] 06:06 :00 PM (Zach Diaz VISIT</td><td>[facility] EDT - Neighborhood DPM</td><td>[facility] DPM 2012 Health Center</td><td>2012</td><td></td> 11:59:0 0 PM Center) EDT Outpatient<td Attender: [facility] 11/08/2012 MAGALI ID="[id number]">Follow [facility] 03:09: 00 PM (Cathay Up</td><td>CAMPO ANAND MICHEL [facility] EDT - [facility] </td><td>[facility] 11/08/2012 Health Center</td><td>11/08/2012</td><td></td> 11:59:0 0 PM Center) EDT Outpatient<td Attender: [facility] 09/27/2012 MAGALI ID="[id number]">INITIAL [facility] 02:41 :00 PM (Cathay VISIT</td><td>CAMPO ANAND MICHEL [facility] EDT - [facility] </td><td>[facility] 09/27/2012 [facility]</td><td>09/27/2012</td><td></td> 11:59:0 0 PM Center) EDT Outpatient<td Attender: [facility] 09/25/2012 MAGALI ID="[id number]">INITIAL [facility] 01:05 :00 PM (Cathay VISIT</td><td>[facility] EDT - [address] [facility] [address]</td><td>[facility] 09/25/2012 Health Center</td><td>09/25/2012</td><td></td> 11:59:0 0 PM Center) EDT Outpatient<td Attender: [facility] 09/11/2012 MAGALI ID="[id number]">Follow [facility] 02:01: 00 PM (Cathay Up</td><td>MARLYN MACIEL [place] EDT - [facility] ASSOCIATE AUTOMATION ENGINEER</td><td>[facility] 09/11/2012 Health Center</td><td>09/11/2012</td><td></td> 03:01:3 2 PM Center) EDT Outpatient<td Attender: [facility] 09/01/2012 BOLCKOW ID="[id number]">[facility] 10:53:00 AM (Zach Diaz Results Only</td><td>[facility] EDT - Neighborhood ASSOCIATE AUTOMATION ENGINEER</td><td>[facility] 09/01/2012 Health Center</td><td>09/01/2012</td><td></td> 11:59:0 0 PM Center) EDT Outpatient<td Attender: [facility] 08/28/2012 R BOLCKOW ID="[id number]">[facility] 01:01 :00 PM o (Cathay E PHYSICAL EXAM</td><td>[facility] EDT - u [facility]</td><td>[facility] 3 t Health Center</td><td>08/28/2012</td><td><[place] 03:25 :02 PM i [place]) t ID="[id number]">Routine EDT n History and Physical</content></td> e H i s t o r y a n d P h y s i c a l R o u t i n e H i s t o r y a n d P h y s i c a l R o u t i n e H i s t o r y a n d P h y s i c a l Routine History and Physical Routine History and Physical Routine History and Physical Functional Status Immunizations Vaccine Date Status Description Data Source(s) IIV3. This 03/13/2018 completed Influenza 4 03/13/2018 Left Active Zach KELSEYWAY is one of 11:05:00 AM Deltoid (Administered) Neighborhood ([facility] [place] ) which is being retired. IIV3. This 04/11/2017 completed Influenza 3 04/11/2017 Right Active Zach Diaz [place] is one of 04:15:00 PM Deltoid (Administered) Neighborhood ([facility] Neighborhood replacing [facility], [place] ) which is being retired. As of December 1998, a 06/22/2016 01:30:00 completed Hep B, will lt [place] 2-dose hepatitis B PM EST Hospital schedule for adolescents (11-15 year olds) was FDA approved for [employer]'s Recombivax HB adult formulation. Use code 43 for the 2-dose. This code should be used for any use of standard adult formulation of hepatitis B vaccine. As of December 1998, a 06/22/2016 12:00:00 completed [place] 2-dose hepatitis B AM EST Hospital schedule for adolescents (11-15 year olds) was FDA approved for [employer]'s Recombivax HB adult formulation. Use code 43 for the 2-dose. This code should be used for any use of standard adult formulation of hepatitis B vaccine. IIV3. This 03/10/2016 completed Influenza 2 03/10/2016 Right Active [facility] is one of 03:50:00 PM Arm (Administered) [facility] ([facility] Neighborhood replacing [address] ) which is being retired. IIV3. This 03/04/2015 completed Influenza 1 03/04/2015 Left Active [facility] is one of 03:43:00 PM Arm (Administered) [facility] ([facility] Neighborhood replacing [address] ) which is being retired. No Known Immunizations completed eCW2 ([facility]) Medications Medication Brand Start Product Dose Route Administrative [facility] Indications Reaction Description Data Name Date Form Instructions Instructions Source(s) pantoprazol Pantop 01/10/ TABLET 40 mg ORAL active White e 40 MG razole 2019 [place] Delayed Sodium 06:02: Hospital Release 00 PM Oral Tablet EDT [Protonix] Pantoprazol e Sodium Multivitami 12/18/ TABLET 1 ORAL active Wh ite ns 2019 {Caps [place] 09:42: ule} Hospital 00 AM EDT Folic Acid 12/18/ TABLET 1 mg ORAL active Whi te Tablet* 2020 [place] 09:42: Hospital 00 AM EDT pantoprazol Pantop 12/18/ TABLET, 40 mg ORAL active White e 40 MG razole 2019 DELAYED [place] Delayed Sodium 09:42: RELEASE Hospi kitty Release 00 AM Oral Tablet EDT Pantoprazol e Sodium Metformin Metfor 12/18/ TABLET 500 ORAL active Wh ite hydrochlori min 2020 mg [place] de 500 MG Hcl 09:42: Hospital Oral Tablet 00 AM [Glucophage EDT ] Metformin Hcl Hydrochloro Hctz/L 12/18/ TABLET 1 ORAL active White thiazide 25 osarta 2019 {Caps [place] [facility] / n 09:42: ule} Hospital Losartan Potass 00 AM Potassium ium EDT 100 MG Oral Tablet Hctz/Losart an Potassium Folic Acid 12/18/ TABLET 1 mg ORAL active Whi te Tablet* 2020 [place] 09:42: Hospital 00 AM EDT Multivitami 12/18/ TABLET 1 ORAL active Wh ite ns 2020 {Caps [place] 09:42: ule} Hospital 00 AM EDT Metformin Metfor 12/18/ TABLET 500 ORAL active Wh ite hydrochlori min 2020 mg [place] de 500 MG Hcl 09:42: Hospital Oral Tablet 00 AM [Glucophage EDT ] Metformin Hcl Thiamine 12/18/ TABLET 100 ORAL active White Mononitrate 2020 mg [place] 09:42: Hospital 00 AM EDT Hydrochloro Hctz/L 12/18/ TABLET 1 ORAL active White thiazide 25 osarta 2019 {Caps [place] MG / n 09:42: ule} [facility] Potass 00 AM Potassium ium EDT 100 MG Oral Tablet Hctz/Losart an Potassium Thiamine 12/18/ TABLET 100 ORAL active White Mononitrate 2020 mg [place] 09:42: Hospital 00 AM EDT pantoprazol Pantop 12/18/ TABLET, 40 mg ORAL active White e 40 MG razole 2020 DELAYED [place] Delayed Sodium 09:42: RELEASE Hospi kitty Release 00 AM Oral Tablet EDT Pantoprazol e Sodium Chlordiazep Chlord 10/30/ CAPSULE 25 mg ORAL active White oxide iazepo 2020 [place] Hydrochlori xide 12:48: Hospit al de 25 MG 00 PM Oral EDT Capsule Chlordiazep Chlord 10/30/ CAPSULE 25 mg ORAL complet White oxide iazepo 2020 ed [place] Hydrochlori xide 12:48: Hospit al de 25 MG 00 PM Oral EDT Capsule Chlordiazep Chlord 10/30/ CAPSULE 25 mg ORAL complet White oxide iazepo 2020 ed [place] Hydrochlori xide 12:48: Hospit al de 25 MG 00 PM Oral EDT Capsule Chlordiazep Chlord 10/30/ CAPSULE 50 mg ORAL active White oxide iazepo 2020 [place] Hydrochlori xide 12:47: Hospit al de 25 MG 00 PM Oral EDT Capsule Chlordiazep Chlord 10/30/ CAPSULE 50 mg ORAL complet White oxide iazepo 2019 ed [place] Hydrochlori xide 12:47: Hospit al de 25 MG 00 PM Oral EDT Capsule Chlordiazep Chlord 10/30/ CAPSULE 50 mg ORAL complet White oxide iazepo 2019 ed [place] Hydrochlori xide 12:47: Hospit al de 25 MG 00 PM Oral EDT Capsule Tobramycin Tobram 06/25/ active 1 drop i nto eCW2 3 MG/ML ycin 2019 affected eye (For m Ophthalmic 0.3 % 12:00: Medica l Solution 00 AM Center & Tobramycin EST Urgent 0.3 % Care) Hydrochloro Losart 05/24/ UNIT 1 active Losarta n MAGALI thiazide 2019 Potassium-HC ([place] MG / Potass 12:00: TZ Joe Losartan ium-HC 00 AM Neighbor ho Potassium TZ EST od Health 100 MG Oral 100-25 Center ) Tablet MG Losartan Oral Potassium-H Tablet CTZ 100-25MG Oral Tablet Chlordiazep chlord 05/24/ UNIT 1 active chlordi azePO MAGALI oxide iazePO 2019 XIDE HCl ([place] Hydrochlori XIDE 12:00: Joe de 25 MG HCl 00 AM Neighborho Oral 25MG EST od Health Capsule Oral Center) chlordiazeP Capsul OXIDE HCl e 25MG Oral Capsule pantoprazol Pantop 03/01/ TABLET 40 mg ORAL complet White e 40 MG razole 2018 ed [place] Delayed Sodium 09:09: Hospital Release 00 AM Oral Tablet EST [Protonix] Pantoprazol e Sodium Magnesium 03/01/ TABLET, 1 ORAL complet Wh ite Chloride 2018 DELAYED {Caps ed [place] 08:54: RELEASE ule} Hospital 00 AM EST Losartan Losart 03/01/ TABLET 25 mg ORAL complet W sukhdeep Potassium an 2018 ed [place] 25 MG Oral Potass 08:54: Hospi kitty Tablet ium 00 AM [Cozaar] EST Metformin Metfor 03/01/ TABLET 1000 ORAL complet W sukhdeep hydrochlori min 2019 mg ed [place] de 500 MG Hcl 08:54: Hospital Oral Tablet 00 AM [Glucophage EST ] Metformin Hcl Folic Acid 03/01/ TABLET 1 mg ORAL complet Wh ite 2018 ed [place] 08:54: Hospital 00 AM EST Thiamine 03/01/ TABLET 100 ORAL complet Whit e Mononitrate 2019 mg ed [place] 08:54: Hospital 00 AM EST Multivitami 03/01/ TABLET 1 ORAL complet W sukhdeep ns 2018 {Caps ed [place] 08:54: ule} Hospital 00 AM EST Chlordiazep Chlord 03/01/ CAPSULE 30 mg ORAL complet White oxide iazepo 2018 ed [place] Hydrochlori xide 08:54: Hospit al de 10 MG 00 AM Oral EST Capsule Metformin MetFOR 03/13/ UNIT 1 active metFORMIN MAGALI hydrochlori MIN 2018 HCl ([place] de 1000 MG HCl 12:00: Joe Oral Tablet 1000MG 00 AM Neigh borho MetFORMIN Oral EST od Health HCl 1000MG Tablet Center) Oral Tablet Hydrochloro Losart 03/13/ UNIT 1 suspend Losart an MAGALI thiazide 25 an 2017 ed Potassium-HC ([place] MG / Potass 12:00: TZ Joe Losartan ium-HC 00 AM Neighbor ho Potassium TZ EST od Health 100 MG Oral 100-25 Center ) Tablet MG Losartan Oral Potassium-H Tablet CTZ 100-25MG Oral Tablet Protonix Proton UNIT 1 active Protonix G REENWAY 40MG Oral ix 2017 ([place] Tablet 40MG 12:00: Joe Delayed Oral 00 AM Neighborho Release Tablet EST od Health [facility]) d Releas e atorvastati Atorva 03/13/ UNIT 1 active Atorvas tatin [place] n 10 MG statin 2017 Calcium ([place] Oral Tablet Calciu 12:00: Volodymyr on Atorvastati m 10MG 00 AM Neigh borho n Calcium Oral EST od Health 10MG Oral Tablet Center) Tablet 24 HR Glipiz 01/01/ CONTROLL 5 mg ORAL complet Whi te Glipizide 5 ben 2017 ED ed [place] MG Extended 05:31: RELEASE Hos pital Release 00 PM TABLET Oral Tablet EDT [Glucotrol] Chlordiazep Chlord 01/01/ CAPSULE 50 mg ORAL complet White oxide iazepo 2017 ed [place] Hydrochlori xide 05:20: Hospit al de 25 MG 00 PM Oral EDT Capsule Thiamine 01/01/ TABLET 100 ORAL complet Whit e Mononitrate 2018 mg ed [place] 05:18: Hospital 00 PM EDT Folic Acid 01/01/ TABLET 1 mg ORAL complet Wh ite 2017 ed [place] 05:18: Hospital 00 PM EDT 24 HR Metfor 01/01/ TABLET, 1 ORAL complet Whit e Metformin min 2017 EXTENDED {Caps ed [place] hydrochlori Hcl 02:16: RELEASE ule} Hos pital de 1000 MG 00 PM Extended EDT Release Oral Tablet [Fortamet] Metformin Hcl Omeprazole Omepra 01/01/ CAPSULE, 40 mg ORAL complet White 40 MG zole 2018 DELAYED ed [place] Delayed 02:16: RELEASE Hospita l Release 00 PM Oral EDT Capsule atorvastati Atorva 01/01/ TABLET 10 mg ORAL complet White n 10 MG statin 2018 ed [place] Oral Tablet Calciu 02:16: Hosp ital [Lipitor] m 00 PM Atorvastati EDT n Calcium atorvastati Atorva 01/01/ TABLET 10 mg complet At Bedtime White n 10 MG statin 2018 ed [place] Oral Tablet Calciu 12:00: Hosp ital [Lipitor] m 00 AM Atorvastati (Lipit EDT n Calcium or*) (Lipitor*) 10 Mg 10 Mg Tab Tab 24 HR Glipiz 01/01/ CONTROLL 5 mg complet Daily Wh ite Glipizide 5 ben 2017 ED ed [place] MG Extended (Gluco 12:00: RELEASE H ospital Release trol-X 00 AM TABLET Oral Tablet l*) 5 EDT [Glucotrol] Mg Glipizide Tabcr, (Glucotrol- 5 Mg Xl*) 5 Mg Oral Tabcr, 5 Mg Oral Thiamine 01/01/ TABLET 100 complet Daily Whi te Mononitrate 2018 mg ed [place] (Vitamin 12:00: Hospital B-1) 100 Mg 00 AM Tablet, 100 EDT Mg Oral 24 HR Metfor 01/01/ TABLET, 1 complet Twice A D ay White Metformin min 2017 EXTENDED {Caps ed [place] hydrochlori Hcl 12:00: RELEASE ule} Hos pital de 1000 MG (Forta 00 AM Extended met EDT Release 1000MG Oral Tablet Tab*) [Fortamet] 1,000 Metformin Mg Hcl Tab.er (Fortamet .24, 1 1000MG Tab Tab*) 1,000 Oral Mg Tab.er.24, 1 Tab Oral Folic Acid Folic 01/01/ TABLET 1 mg complet Daily White 1 MG Oral Acid 2017 ed [place] Tablet (Folic 12:00: Hospital Folic Acid Acid 00 AM (Folic Acid Tablet EDT Tablet*) 1 *) 1 Mg Tab Mg Tab Chlordiazep Chlord 01/01/ CAPSULE 50 mg complet At Bedtime White oxide iazepo 2018 ed [place] Hydrochlori xide 12:00: Hospit al de 25 MG (Libri 00 AM Oral um EDT Capsule 25MG Chlordiazep Cap*) oxide 25 Mg (Librium Cap, 25MG Cap*) 50 Mg 25 Mg Cap, Oral 50 Mg Oral Omeprazole Omepra 01/01/ CAPSULE, 40 mg complet Tw ice A Day White 40 MG zole 2017 DELAYED ed [place] Delayed (Prilo 12:00: RELEASE Hospi kitty Release sec 00 AM Oral 40MG EDT Capsule Capsul Omeprazole e*) 40 (Prilosec Mg 40MG Capsul Capsule*) e.dr, 40 Mg 40 Mg Capsule.dr, Oral 40 Mg Oral atorvastati Atorva 06/27/ UNIT 1 suspend Atorva statin MAGALI n 10 MG statin 2017 ed Calcium ([place] Oral Tablet Calciu 12:00: Volodymyr on Atorvastati m 10MG 00 AM Neigh borho n Calcium Oral EST od Health 10MG Oral Tablet Center) Tablet Hydrochloro [place] 06/27/ UNIT 1 suspend Losart an MAGALI thiazide 25 an 2018 ed Potassium-HC ([place] MG / Potass 12:00: TZ Joe Losartan ium-HC 00 AM Neighbor ho Potassium TZ EST od Health 100 MG Oral 100-25 Center ) Tablet MG Losartan Oral Potassium-H Tablet CTZ 100-25MG Oral Tablet Protonix Proton 06/27/ UNIT 1 suspend Protonix MAGALI 40MG Oral ix 2017 ed ([place] Tablet 40MG 12:00: Joe Delayed Oral 00 AM Neighborho Release Tablet EST od Health [facility]) d Releas e Metformin MetFOR 06/27/ UNIT 1 suspend metFORMI N MAGALI hydrochlori MIN 2018 ed HCl ([place] de 1000 MG HCl 12:00: Joe Oral Tablet 1000MG 00 AM Neigh borho MetFORMIN Oral EST od Health HCl 1000MG Tablet Center) Oral Tablet Naltrexone [place] 10/12/ active 1 tablet eCW2 hydrochlori xone 2016 (Form de 50 MG HCl 50 12:00: Medical Oral Tablet MG 00 AM Center & Naltrexone EDT Urgent HCl 50 MG Care) Omeprazole Omepra 08/04/ CAPSULE, 40 mg ORAL complet [place] 40 MG zole 2016 DELAYED ed [place] Delayed 05:12: RELEASE Hospita l Release 00 PM Oral EDT Capsule Omeprazole Omepra 08/04/ CAPSULE, 40 mg complet Tw ice A Day White 40 MG zole 2016 DELAYED ed [place] Delayed (Prilo 12:00: RELEASE Hospi kitty Release sec 00 AM Oral 40MG EDT Capsule Capsul Omeprazole e*) 40 (Prilosec Mg 40MG Capsul Capsule*) e.dr, 40 Mg 40 Mg Capsule.dr, Oral 40 Mg Oral Chlordiazep Chlord 06/28/ UNIT 1 suspend chlord iazePO MAGALI oxide iazePO 2016 ed XIDE HCl ([place] Hydrochlori XIDE 12:00: Joe de 25 MG HCl 25 00 AM Neighbor ho Oral MG EST od Health Capsule Capsul Center) ChlordiazeP e OXIDE HCl 25 MG Capsule Losartan Losart 06/28/ UNIT 1 [facility] Pot[facility] an 2017 Potassium (Moun t 100 MG Oral Potass 12:00: Volodymyr on Tablet ium 00 AM Neighborho Losartan 100 MG EST od Health Potassium Tablet Center) 100 MG Tablet Omeprazole Omepra 06/21/ CAPSULE, 40 mg ORAL complet White 40 MG zole 2016 DELAYED ed [place] Delayed 02:58: RELEASE Hospita l Release 00 PM Oral EST Capsule Omeprazole Omepra 06/21/ CAPSULE, 40 mg complet Da ck White 40 MG zole 2016 DELAYED ed [place] Delayed (Prilo 12:00: RELEASE Hospi kitty Release sec 00 AM Oral 40MG EST Capsule Capsul Omeprazole e*) 40 (Prilosec Mg 40MG Capsul Capsule*) e.dr, 40 Mg 40 Mg Capsule.dr, Oral 40 Mg Oral Chlordiazep Chlord 06/17/ CAPSULE 25 mg ORAL complet White oxide iazepo 2016 ed [place] Hydrochlori xide 10:10: Hospit al de 25 MG 00 AM Oral EST Capsule Losartan Losart 06/17/ TABLET 100 ORAL complet Wh ite Potassium an 2017 mg ed [place] 50 MG Oral Potass 10:09: Hospi kitty Tablet ium 00 AM [Cozaar] EST Chlordiazep Chlord 06/17/ CAPSULE 25 mg complet Ev long 6 White oxide iazepo 2017 ed Hours [place] Hydrochlori xide 12:00: Hospit al de 25 MG (Libri 00 AM Oral um EST Capsule 25MG Chlordiazep Cap*) oxide 25 Mg (Librium Cap, 25MG Cap*) 25 Mg 25 Mg Cap, Oral 25 Mg Oral Losartan Losart 06/17/ TABLET 100 complet Daily [facility] Potassium an 2017 mg ed [place] 50 MG Oral Potass 12:00: Hospi kitty Tablet ium 00 AM [Cozaar] (Cozaa EST Losartan r*) 50 Potassium Mg (Cozaar*) Tab, 50 Mg Tab, 100 Mg 100 Mg [facility] active [facility] thiazide an 2015 Potassium-HC (Mo unt 12.5 MG / Potass 12:00: TZ Joe Losartan ium-HC 00 AM Neighbor ho Potassium TZ EST od Health 100 MG Oral 100-12 Center ) Tablet .5 MG Losartan Tablet Potassium-H CTZ 100-12.5 MG Tablet Metformin MetFOR 03/10/ UNIT 1 active metFORMIN [place] hydrochlori MIN 2015 HCl ([place] de 500 MG HCl 12:00: Joe Oral Tablet 500 MG 00 AM Neigh borho MetFORMIN Tablet EST od Healt h HCl 500 MG Center) Tablet Simvastatin Simvas 03/10/ UNIT 1 active Simvast atin [place] 10 MG Oral tatin 2015 ([place] Tablet 10 MG 12:00: Joe Simvastatin Tablet 00 AM Neigh borho 10 MG EST od Health Tablet Center) Hydrochloro [facility] 02/22/ UNIT 1 suspend [facility] thiazide an 2015 ed Potassium-HC (Mo unt 12.5 MG / Potass 12:00: TZ Joe Losartan ium-HC 00 AM Neighbor ho Potassium TZ EDT od Health 100 MG Oral 100-12 Center ) Tablet .5 MG Losartan Tablet Potassium-H CTZ 100-12.5 MG Tablet Hydrochloro [facility] 02/22/ UNIT 1 suspend [facility] thiazide an 2015 ed Potassium-HC (Mo unt 12.5 MG / Potass 12:00: TZ Joe Losartan ium-HC 00 AM Neighbor ho Potassium TZ EDT od Health 100 MG Oral 100-12 Center ) Tablet .5 MG Losartan Tablet Potassium-H CTZ 100-12.5 MG Tablet Sucralfate Sucral 10/16/ SUSPENSI 1 g ORAL complet White 100 MG/ML fate 2015 ON ed [place] Oral 03:28: Hospital Suspension 00 PM EDT Sucralfate Sucral 10/16/ SUSPENSI 1 g ORAL complet White 100 MG/ML fate 2015 ON ed [place] Oral 03:28: Hospital Suspension 00 PM EDT Sucralfate Sucral 10/16/ SUSPENSI 1 g ORAL complet White 100 MG/ML fate 2016 ON ed [place] Oral 03:28: Hospital Suspension 00 PM EDT Metformin MetFOR 04/11/ UNIT 1 suspend metFORMI N MAGALI hydrochlori MIN 2014 ed HCl ([place] de 1000 MG HCl 12:00: Joe Oral Tablet 1000 00 AM Neighbo rho MetFORMIN MG EST od Health HCl 1000 MG Tablet Center ) Tablet Hydrochloro Losart 04/11/ UNIT 1 suspend Losart an MAGALI thiazide an 2014 ed Potassium-HC (Mo unt 12.5 MG / Potass 12:00: TZ Joe Losartan ium-HC 00 AM Neighbor ho Potassium TZ EST od Health 100 MG Oral 100-12 Center ) Tablet .5 MG Losartan Tablet Potassium-H CTZ 100-12.5 MG Tablet Chlordiazep Chlord 03/26/ CAPSULE 25 mg ORAL complet White oxide iazepo 2014 ed [place] Hydrochlori xide 01:25: Hospit al de 25 MG 00 PM Oral EST Capsule Chlordiazep Chlord 03/26/ CAPSULE 25 mg ORAL complet White oxide iazepo 2014 ed [place] Hydrochlori xide 01:25: Hospit al de 25 MG 00 PM Oral EST Capsule Chlordiazep Chlord 03/26/ CAPSULE 25 mg ORAL complet White oxide iazepo 2014 ed [place] Hydrochlori xide 01:25: Hospit al de 25 MG 00 PM Oral EST Capsule Simvastatin Simvas 03/04/ UNIT 1 suspend Simvas tatin MAGALI 20 MG Oral tatin 2014 ed ([place] Tablet 20 MG 12:00: Joe Simvastatin Tablet 00 AM Neigh borho 20 MG EST od Health Tablet Center) Chlordiazep Chlord 08/25/ CAPSULE 10 mg ORAL complet White oxide iazepo 2014 ed [place] Hydrochlori xide 07:46: Hospit al de 10 MG 00 AM Oral EDT Capsule Thiamine Thiami 05/03/ TABLET 100 ORAL complet Wh ite 100 MG Oral ne Hcl 2015 mg ed [place] Tablet 07:46: Hospital Thiamine 00 AM Hcl EDT Thiamine Thiami 05/03/ TABLET 100 ORAL complet Wh ite 100 MG Oral ne Hcl 2015 mg ed [place] Tablet 07:46: Hospital Thiamine 00 AM Hcl EDT Chlordiazep Chlord // CAPSULE 10 mg ORAL complet White oxide iazepo 2014 ed [place] Hydrochlori xide 07:46: Hospit al de 10 MG 00 AM Oral EDT Capsule Folic Acid 05/03/ TABLET 1 mg ORAL complet Wh ite 2014 ed [place] 07:46: Hospital 00 AM EDT Pantoprazol 05/03/ TABLET 40 mg ORAL complet White e Sodium 2014 ed [place] 07:46: Hospital 00 AM EDT Thiamine Thiami 05/03/ TABLET 100 ORAL complet Wh ite 100 MG Oral ne Hcl 2015 mg ed [place] Tablet 07:46: Hospital Thiamine 00 AM Hcl EDT Chlordiazep Chlord 08/25/ CAPSULE 10 mg ORAL complet White oxide iazepo 2014 ed [place] Hydrochlori xide 07:46: Hospit al de 10 MG 00 AM Oral EDT Capsule Folic Acid /03/ TABLET 1 mg ORAL complet Wh ite 2014 ed [place] 07:46: Hospital 00 AM EDT Folic Acid 05/03/ TABLET 1 mg ORAL complet Wh ite 2014 ed [place] 07:46: Hospital 00 AM EDT Pantoprazol 05/03/ TABLET 40 mg ORAL complet White e Sodium 2014 ed [place] 07:46: Hospital 00 AM EDT Pantoprazol 05/03/ TABLET 40 mg ORAL complet White e Sodium 2014 ed [place] 07:46: Hospital 00 AM EDT Hydrochloro Losart 05/30/ UNIT 1 suspend Losart an MAGALI thiazide an 2014 ed Potassium-HC (Mo unt 12.5 MG / Potass 12:00: TZ Joe Losartan ium-HC 00 AM Neighbor ho Potassium TZ EST od Health 100 MG Oral 100-12 Center ) Tablet .5MG Losartan OR Potassium-H TABS CTZ 100-12.5MG OR TABS Simvastatin Simvas 01/01/ UNIT 1 suspend Simvas tatin MAGALI 10 MG Oral tatin 2013 ed ([place] Tablet 10MG 12:00: Joe Simvastatin OR 00 AM Neighbo rho 10MG OR TABS EDT od Health TABS Center) Hydrochloro Losart 11/27/ UNIT 1 suspend Losart an MAGALI thiazide an 2013 ed Potassium-HC (Mo unt 12.5 MG / Potass 12:00: TZ Joe Losartan ium-HC 00 AM Neighbor ho Potassium TZ EDT od Health 100 MG Oral 100-12 Center ) Tablet .5MG Losartan OR Potassium-H TABS CTZ 100-12.5MG OR TABS Protonix Proton 11/27/ UNIT 1 suspend Protonix MAGALI 40MG OR ix 2013 ed ([place] TBEC 40MG 12:00: Joe OR 00 AM Neighborho TBEC EDT od Health Center) Metformin metFOR 11/27/ UNIT 1 suspend metFORMI N MAGALI hydrochlori MIN 2013 ed HCl ([place] de 500 MG HCl 12:00: Joe Oral Tablet 500MG 00 AM [facility] metFORMIN TABS EDT od Health HCl 500MG Center) TABS Losartan Losart 04/10/ UNIT 1 suspend Losartan MAGALI Potassium an 2012 ed Potassium (Moun t 25 MG Oral Potass 12:00: Verno n Tablet ium 00 AM [facility] Losartan 25MG EST od Health Potassium OR Center) 25MG OR TABS TABS Protonix Proton 03/20/ UNIT 1 suspend Protonix MAGALI 40MG OR ix 2012 ed ([place] TBEC 40MG 12:00: Joe OR 00 AM [facility] TBE EST od Health Center) Glipizide glipiZ 08/28/ UNIT 1 active glipiZIDE MAGALI 10 MG Oral BEN 2012 ([place] Tablet 10MG 12:00: Joe glipiZIDE OR 00 AM Neighbor o 10MG OR TABS EDT od Health TABS Center) Metformin metFOR 08/28/ UNIT 1 suspend metFORMI N MAGALI hydrochlori MIN 2012 ed HCl ([place] de 500 MG HCl 12:00: Joe Oral Tablet 500MG 00 AM [facility] metFORMIN TABS EDT od [facility] HCl 500MG Center) TABS Folic Acid CAPSULE complet [facility] Folic Acid CAPSULE complet [facility] Metformin 1 ORAL complet White {[facility] [place] ule} Hospital Hydrochloro Hctz/L TABLET 1 complet Daily White thiazide osarta {[facility] ed [place] 12.5 MG / n ule} [facility] Losartan Potass Potassium ium 100 MG Oral (Losar Tablet willard-Hc Hctz/Losart tz an 100-12 Potassium .5 Mg (Losartan-H Tab*) ctz 100 100-12.5 Mg Mg-12. Tab*) 100 5 Mg Mg-12.5 Mg Tablet Tablet, 1 , 1 Tab Oral Tab Oral Hydrochloro Hctz/L TABLET 1 ORAL complet [facility] [place] thiazide 25 osarta {[facility] [place] MG / n ule} [facility] Losartan Potass Potassium ium 100 MG Oral Tablet Hctz/Losart an Potassium Omeprazole Omepra active 1 capsule eCW2 40 MG zole (Form Delayed 40 MG Medical Release Center & Oral Urgent Capsule Care) Folic Acid CAPSULE active [facility] Center Hydrochloro Hctz/L TABLET 1 ORAL complet [place] thiazide 25 osarta {[facility] ed [place] s MG / n ule} Hospital Losartan Potass Potassium ium 100 MG Oral Tablet Hctz/Losart an Potassium Simvastatin Simvas TABLET 1 ORAL complet [place] 10 MG Oral tatin {[facility] [place] Tablet ule} [facility] Losartan Losart active 1 tablet eCW 2 Potassium an (Form 100 MG Oral Potass Medica l Tablet ium Center & 100 MG Urgent Care) Losartan 1 ORAL complet White {[facility] ed [place] ule} [facility] Hydrochloro Hctz/L TABLET 1 ORAL complet [place] thiazide 25 osarta {[facility] ed [place] MG / n ule} [facility] Losartan Potass Potassium ium 100 MG Oral Tablet Hctz/Losart an Potassium Hydrochloro Hctz/L TABLET 1 complet Daily White thiazide 25 osarta {[facility] ed [place] MG / n ule} [facility] Losartan Potass Potassium ium 100 MG Oral (Losar Tablet willard-Hc Hctz/Losart tz an 100-25 Potassium Mg (Losartan-H Tab*) ctz 100-25 1 Mg Tab*) 1 Tablet Tablet Tablet Tablet None complet [facility] Hydrochloro Hctz/L TABLET 1 ORAL complet W [place]deep thiazide osarta {[facility] 12.5 MG / n ule} [facility] Losartan Potass Potassium ium 100 MG Oral Tablet Hctz/Losart an Potassium Chlordiazep Chlord active 1 capsule eCW2 oxide iazepo (Form Hydrochlori xide Medical de 25 MG HCl 25 Center & Oral MG Urgent Capsule Care) Chlordiazep oxide HCl 25 MG None complet [facility] None complet [facility] Metformin Metfor TABLET 1 ORAL complet Whi te hydrochlori min {[facility] de 500 MG Hcl ule} [facility] Oral Tablet Metformin Hcl Simvastatin Simvas TABLET 1 complet Daily White 10 MG Oral tatin {[facility] Tablet (Zocor ule} Hospital Simvastatin Tablet (Zocor *) 10 Tablet*) 10 Mg Mg Tab, 1 Tab, 1 Tab Oral Tab Oral Metformin Metfor TABLET 1 complet Twice A Day White hydrochlori min {[facility] de 500 MG Hcl ule} [facility] Oral Tablet 500 Mg Metformin Tablet Hcl 500 Mg , 1 Tablet, 1 Tab Tab Oral Oral Insurance Providers Payer name Policy type Policy ID Covered Covered green party's Policy P fanny / Coverage green party ID relationship to [employer] Inf ormation type valero SELF PAY SP INSURANCE MEDICAID [id number] PT [id number] EMERGENCY [id number] PT [id number] MCAID MEDICAID [id number] SP [id number] BLUE CROSS [id number] PT [id number] PPO 5 Problems, Conditions, and Diagnoses Code Display Name Description Problem Type Effective Data Sour ce(s) Dates [id number] 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) 530.81 Gerd Gerd Problem 04/11/2017 MAGALI (Moun t 12:00:[address] [facility]) 530.81 Gerd Gerd Problem 04/11/2017 MAGALI (Moun t 12:00:[address] [facility]) K29.70 Gastritis Gastritis Problem 10/12/2016 eCW2 (Form 12:00:00 AM Medical Cente [facility] EDT & Urgent Care) I10 Hypertension Hypertension Problem 10/12/2016 eCW2 (Form 12:00:00 AM Medical Cente r EDT & Urgent Care) F10.10 Alcohol abuse Alcohol abuse Problem 10/12/2016 eCW2 (Fo rm 12:00:00 AM Medical Cente r EDT & Urgent Care) 790.4 Elevated Liver Elevated Liver Problem 07/12/2016 GREENW AY ([place] Enzymes Enzymes 12:00:00 AM [facility]) 790.4 Elevated Liver Elevated Liver Problem 07/12/2016 GREENW AY ([place] Enzymes Enzymes 12:00:00 AM [facility]) 790.4 Elevated Liver Elevated Liver Problem 07/12/2016 GREENW AY ([place] Enzymes Enzymes 12:00:00 AM [facility]) [id number] Alcohol dependence Alcohol Dependence Problem 7 MAGALI ([place] (disorder) (alcoholism) 12:00:[address] [facility]) [id number] Alcohol dependence Alcohol Dependence Problem 7 MAGALI ([place] (disorder) (alcoholism) 12:00:[address] [facility]) [id number] Alcohol dependence Alcohol Dependence Problem 7 MAGALI ([place] (disorder) (alcoholism) 12:00:[address] [facility]) [id number] Hypertensive Hypertension Problem 02/23/2016 MAGALI ( [place] disorder, systemic (systemic) 12:00:00 [facility] [id number] Hypertensive Hypertension Problem 02/23/2016 MAGALI ( [place] disorder, systemic (systemic) 12:00:00 [facility] (disorder) [facility]) [id number] Hypertensive Hypertension Problem 02/23/2016 [place] ( [place] disorder, systemic (systemic) 12:00:00 AM [facility] (disorder) [facility]) [id number] Hyperlipidemia Hyperlipidemia Problem 03/04/2015 GREENW AY ([place] (disorder) 12:00:[address] [facility]) [id number] Hyperlipidemia Hyperlipidemia Problem 03/04/2015 GREENW AY ([place] (disorder) 12:00:[address] [facility]) [id number] Hyperlipidemia Hyperlipidemia Problem 03/04/2015 GREENW AY ([place] (disorder) 12:00:[address] [facility]) 250.00 DM, CONTROLLED DM, CONTROLLED Problem 08/28/2012 GREENW AY ([place] 12:00:00 AM [facility]) 250.00 DM, CONTROLLED DM, CONTROLLED Problem 08/28/2012 GREENW AY ([place] 12:00:00 AM [facility]) 250.00 DM, CONTROLLED DM, CONTROLLED Problem 08/28/2012 GREENW AY ([place] 12:00:00 AM [facility]) K29.20 Alcoholic K29.20 Diagnosis 01/11/2020 [place] gastritis without 03:22:00 PM Hospit al bleeding EDT F10.129 Alcohol abuse with F10.129 Diagnosis 01/11/2020 [place] intoxication, 03:22:00 PM Hospital unspecified EDT Z11.59 Encounter for Z11.59 Diagnosis 12/17/2019 [place] screening for 07:38:00 AM Hospital other viral EDT diseases I10 Essential I10 Diagnosis 12/17/2019 [place] (primary) 07:38:00 AM Hospital hypertension EDT F17.210 Nicotine F17.210 Diagnosis 12/17/2019 [place] dependence, 07:38:00 AM Hospital cigarettes, EDT uncomplicated E78.5 Hyperlipidemia, E78.5 Diagnosis 12/17/2019 [place] unspecified 07:38:00 AM Hospital EDT E11.9 Type 2 diabetes E11.9 Diagnosis 12/17/2019 [place] mellitus without 07:38:00 AM Hospita l complications EDT F41.9 Anxiety disorder, F41.9 Diagnosis 12/17/2019 [place] unspecified 07:38:00 AM Hospital EDT R10.9 Unspecified R10.9 Diagnosis 12/17/2019 [place] abdominal pain 07:38:00 AM Hospital EDT R11.2 Nausea with R11.2 Diagnosis 12/17/2019 [place] vomiting, 07:38:00 AM Hospital unspecified EDT R45.851 Suicidal ideations R45.851 Diagnosis 12/17/2019 [place] 07:38:00 AM Hospital EDT Y90.8 Blood alcohol Y90.8 Diagnosis 12/17/2019 [place] level of 240 07:38:00 AM Hospital mg/100 ml or more EDT T51.0X1A Toxic effect of T51.0X1A Diagnosis 12/17/2019 [place] ethanol, 07:38:00 AM Hospital accidental EDT (unintentional), initial encounter F10.230 Alcohol dependence F10.230 Diagnosis 12/17/2019 [place] with withdrawal, 07:38:00 AM Hospita l uncomplicated EDT F10.229 Alcohol dependence F10.229 Diagnosis 12/17/2019 [place] with intoxication, 07:38:00 AM Hospi kitty unspecified EDT F10.239 Alcohol dependence F10.239 Diagnosis 02/28/2019 [place] with withdrawal, 04:42:00 PM Hospita l unspecified EST M21.611 Bunion of right M21.611 Diagnosis 02/28/2019 [place] foot 04:42:00 PM Hospital EST M77.31 Calcaneal spur, M77.31 Diagnosis 02/28/2019 [place] right foot 04:42:00 PM Hospital EST F32.9 Major depressive F32.9 Diagnosis 02/28/[address] [place] disorder, single 04:42:00 PM Hospita l episode, EST unspecified E83.39 Other disorders of E83.39 Diagnosis 02/28/2019 [place] phosphorus 04:42:00 PM Hospital metabolism EST E87.2 Acidosis E87.2 Diagnosis 02/28/2019 [place] 04:42:00 PM Hospital EST E87.8 Other disorders of E87.8 Diagnosis 02/28/2019 [place] electrolyte and 04:42:00 PM Hospital fluid balance, not EST elsewhere classified E87.6 Hypokalemia E87.6 Diagnosis 02/28/2019 [place] 04:42:00 PM Hospital EST K21.9 Gastro-esophageal K21.9 Diagnosis 02/28/2019 [place] reflux disease 04:42:00 PM Hospital without EST esophagitis Z79.899 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 Z79.899 Diagnosis 02/28/2019 [place] (current) drug 04:42:00 PM Hospital therapy EST Z79.84 residential Z79.84 Diagnosis 02/28/2019 [place] (current) use of 04:42:00 PM Hospita l oral hypoglycemic EST drugs Z00.00 Encounter for Encntr for general Diagnosis 06/23/2018 CRISTIAN KNAPP ([facility] [place], operated by [facility] adult adult medical exam 03:58:44 PM Ve rnon medical w/o abnormal EST Neighborhood examination findings Health Center ) without abnormal findings Surgeries/Procedures Procedure Description Date Indications Data Source(s) Plain chest X-ray 01/11/2020 [place] (procedure) 12:00:00 Hospital AM EDT INSULIN INJECTION 12/17/2019 [place] 12:[facility]:00 Hospital AM EDT INJECTION, THIAMINE HCL, 12/17/2019 Wh[facility] te [place] 100 MG 12:00:00 Hospital AM EDT INJECTION, THIAMINE HCL, 12/17/2019 [facility] te [place] 100 MG 12:00:00 Hospital AM EDT INJECTION, THIAMINE HCL, 12/17/2019 Wh[facility] te [place] 100 MG 12:00:00 Hospital AM EDT NORMAL SALINE SOLUTION 12/17/2019 [place] INFUS 12:00:00 Hospital AM EDT INJ PANTOPRAZOLE SODIUM, 12/17/2019 Whi te [place] VIA 12:00:00 Hospital AM EDT INJECTION, ONDANSETRON 12/17/2019 [place] HYDROCHLORIDE, PER 1 MG 12:00:00 Hosp ital AM EDT Hoplynn rebolledoid-19 spec collect 12/17/2019 [place] [facility] [place] 12:00:00 Hospital AM EDT HOSPITAL OBSERVATION PER HR 12/17/2019 [place] 12:00:00 Hospital AM EDT HOSPITAL OBSERVATION PER HR 12/17/2019 [place] 12:00:00 Hospital AM EDT HOSPITAL OBSERVATION PER HR 12/17/2019 [place] 12:00:00 Hospital AM EDT X-ray exam chest 1 view 12/17/2019 Whit [facility] [place] 12:00:00 Hospital AM EDT Electrocardiogram tracing 12/17/2019 Wh ite [place] 12:00:00 Hospital AM EDT Vitamin b-12 12/17/2019 [place] 12:00:00 Hospital AM EDT Assay thyroid stim hormone 12/17/2019 [place] 12:00:00 Hospital AM EDT Assay of phosphorus 12/17/[address] [place] 12:00:[facility] Hospital AM EDT Assay of magnesium 12/17/2019 [place] 12:00:00 Hospital AM EDT Assay of magnesium 12/17/2019 [place] 12:00:00 Hospital AM EDT Assay of lipase 12/17/2019 [place] 12:00:00 Hospital AM EDT Glycosylated hemoglobin 12/17/2019 [facility] [place] test 12:00:00 Hospital AM EDT Glycosylated hemoglobin 12/17/2019 [facility] [place] test 12:00:00 Hospital AM EDT Reagent strip/blood glucose 12/17/2019 [place] 12:00:00 Hospital AM EDT Reagent strip/blood glucose 12/17/2019 [place] 12:00:00 Hospital AM EDT Reagent strip/blood glucose 12/17/2019 [place] 12:00:00 Hospital AM EDT Reagent strip/blood glucose 12/17/2019 [place] 12:00:00 Hospital AM EDT Assay of folic acid serum 12/17/2019 [facility] [place] 12:00:00 Hospital AM EDT Drug test prsmv chem anlyzr 12/17/2019 [place] 12:00:00 Hospital AM EDT Comprehen metabolic panel 12/17/2019 [facility] 12:00:00 Hospital AM EDT Comprehen metabolic panel 12/17/2019 [facility] 12:00:00 Hospital AM EDT Drug test prsmv chem anlyzr 12/17/2019 [place] 12:00:00 Hospital AM EDT Bilirubin direct 12/17/2019 [facility] 12:00:00 Hospital AM EDT Metabolic panel total ca 12/17/2019 [facility] 12:00:00 Hospital AM EDT Metabolic panel total ca 12/17/2019 [facility] te [place] 12:00:00 Hospital AM EDT SARS-COV-2 COVID-19 AMP PRB 12/17/2019 [place] 12:00:00 Hospital AM EDT Hemoglobin 12/17/2019 [place] 12:00:00 Hospital AM EDT Hematocrit 12/17/2019 [place] 12:00:00 Hospital AM EDT Complete cbc automated 12/17/2019 [place] 12:00:00 Hospital AM EDT Complete cbc w/auto diff 12/17/2019 [facility] wbc 12:00:00 Hospital AM EDT Complete cbc w/auto diff 12/17/2019 [facility] wbc 12:00:00 Hospital AM EDT Complete cbc w/auto diff 12/17/2019 [facility] wbc 12:00:00 Hospital AM EDT Urinalysis auto w/o scope 12/17/2019 [facility] 12:00:00 Hospital AM EDT Ther/proph/diag iv inf 12/17/2019 [place] addon 12:00:00 Hospital AM EDT Ther/proph/diag iv inf 12/17/2019 [place] addon 12:00:00 Hospital AM EDT Ther/proph/diag inj sc/im 12/17/2019 [facility] 12:00:00 Hospital AM EDT Ther/proph/diag inj sc/im 12/17/2019 [facility] 12:00:00 Hospital AM EDT Tx/pro/dx inj new drug 12/17/2019 [place] addon 12:00:00 Hospital AM EDT Ther/proph/diag iv inf init 12/17/2019 [place] 12:00:00 Hospital AM EDT Hydrate iv infusion add-on 12/17/2019 [place] [place] 12:00:00 Hospital AM EDT Hydrate iv infusion add-on 12/17/2019 [place] 12:00:00 Hospital AM EDT Hydrate iv infusion add-on 12/17/2019 [place] 12:00:00 Hospital AM EDT Emergency dept visit 12/17/2019 [place] 12:00:00 Hospital AM EDT [place] chest X-ray 12/16/2019 [place] (procedure) 12:00:00 Hospital AM EDT Electrocardiographic 12/16/2019 [place] procedure (procedure) 12:00:00 Hospit al AM EDT Plain chest X-ray 12/16/2019 [place] (procedure) 12:00:00 Hospital AM EDT Electrocardiographic 12/16/2019 [place] procedure (procedure) 12:00:00 Hospit al AM EDT Electrocardiographic 10/31/2019 [place] procedure (procedure) 12:00:00 Hospit al AM EDT URINALYSIS MICROSCOPIC URINALYSIS 05/22/2019 [facility] MICROSCOPIC 12:00:00 [facility]) PSA (PROSTATE SPECIFIC A PSA (PROSTATE 05/22/2019 [facility] ([place] SPECIFIC A 12:00:00 [facility]) METABOLIC PANEL COMPREHE METABOLIC PANEL 05/22/2019 [place] ([place] COMPREHE 12:00:00 [facility]) LIPID PANEL LIPID PANEL 05/22/2019 [place] ([place] 12:00:00 [facility] [facility] HEMOGLOBIN A1C HEMOGLOBIN A1C 05/22/2019 [place] ([facility] 12[facility]00 [facility]) [id number] 05/22/2019 [facility] ([facility]) History of No carotid History of No 05/22/2019 [facility] ([facility] bruits carotid bruits 12:00:00 [facility]) No past medical history No past medical 05/22/2019 [place] [facility] ([facility] reported history reported 12:00:00 [facility]) No recent change in medical No recent change 05/22/2019 [place] ([facility] history in medical history 12:00:00 [facility]) Prior serious illness Prior serious 05/22/2019 [facility] ([facility] illness 12:00:00 [facility]) Surgery Left knee micro Surgery Left knee 05/22/2019 [place] ([facility] surgery 2013 micro surgery 2013 12:00:00 [facility]) X-ray of right foot 02/27/[address] [facility]procedure) 12:00:00 Hospital AM EST Electrocardiographic 02/26/2019 [facility] (procedure) 12:00:00 Hospit al AM EST Plain chest X-ray 02/26/[place] [facility]procedure[facility] 12[facility]:00 Hospital AM EST EKG (electrocardiogram) EKG 04/22/2018 [place] (electrocardiogram 12:00:00 [facility] ) AM EST Screening for clinical SCREENING FOR 06/27/2017 GEOVANNA MCCARTNEY ([facility] depression documented as CLINICAL 12:00:00 Kamila non positive, follow up plan DEPRESSION AM EST Nei ghborhood not documented, reason not POSITIVE,NO F/UP [facility]) given PLAN LAB CHARGE LAB CHARGE 05/02/2017 [place] ([facility] 12:00:00 [facility]) LIPID PANEL LIPID PANEL 04/11/2017 [place] ([facility] 12:00:00 [facility]) HEMOGLOBIN A1C HEMOGLOBIN A1C 04/11/2017 [place] ([facility] 12:00:00 [facility]) ULC-[id number]-[id number] DOX-[id number]-DXXELIPH 04/11/2017 [facility] ([facility] 12:00:00 [facility]) No recent change in medical No recent change 06/28/2016 [place] ([facility] history in medical history 12:00:00 [facility]) History of surgery L knee History of surgery 02/23/2016 [place] ([facility] surgery L knee surgery 12:00:00 [facility]) Past medical history Past medical 04/11/2015 KWADWO Crane ([facility] history 12:00:00 [facility]) Advance healthcare Advance healthcare 03/04/2015 CRISTIAN KNAPP ([facility] directive not on file directive not on 12:00:00 Ve rnon file [facility]) History of Eyes: normal History of Eyes: 03/04/2015 MAG[place] ([facility] normal 12:00:00 [facility]) No fall No fall 12/17/2013 [place] ([facility] 12:00:00 [facility]) No prior serious illness No prior serious 09/11/2012 [place] ([facility] illness 12:00:00 [facility]) History of No carotid History of No 08/28/[address] ([facility] bruits carotid bruits 12:00:00 [facility]) No Known procedures No Known eCW2 ([facility]) Results ID Date Data Source [id number] 01/11/2020 03:15:00 PM [facility] NOTIFICATION AND READ BACK OF CRITICAL R ESULTS TO ENRIQUE ENG RN-[facility] AT 1543 ON 01/11/20 BY Marquis Desouza.REFERENCE R ANGES: NONE DETECTED <20 MG/DL NONE TO MILD EUPHORIA 20-49 MG/DL MILD EUPHORIA 50-99 MG/DL MODERATE EUPHORIA 100-149 MG/DL INTOXICATION 150-300 MG/DLREPORTED CRITICAL VALUES SHOULD BE INTERPRETED WITHIN CLINICAL CONTEXT. Name Value Range Interpretation Description Data Sup porting Code Source(s) Document(s ) Ethanol 416 mg/dL [place] [Mass/volume Hospital ] in Serum or Plasma ID Date Data Source [id number] 01/11/2020 03:15:00 PM [facility] TEST RESULT IS A TOTAL TRICYCLIC VALUE.T RICYCLIC ANTIDEPRESSANT REFERENCE RANGE: AMITRIPTYLINE AND METABOLITE (NORTRIPTYL INE) TOTAL THERAPEUTIC: 75 - 225 NG/ML. TOTAL TOXIC: > 400 NG/ML. NORTRIPTYLINE ONLY TOTAL THERAPEUTIC: 50 - 150 NG/ML. TOTAL TOXIC: > 400 NG/ML. IMIPRAMINE AND METABOLITE (DESIPRAMINE) TOTAL THERAPEUTIC: 125 - 175 NG/ML. TOTAL TOXIC: > 400 NG/ML. Name Value Range Interpretation Description Data Sup porting Code Source(s) Document(s ) TRICYCLIC < 80 [place] ANTIDEPRESSANT ng/mL Hospital ID Date Data Source [id number] 01/11/2020 03:15:00 PM [facility] REFERENCE RANGES: ANALGESIC: 0.0 - 10.0 MG/DL. ARTHRITIC THERAPY: 15.0 - 30.0 MG/DL. Name Value Range Interpretation Description Data Sup porting Code Source(s) Document(s ) Salicylates < 3.0 [place] [Mass/volume] mg/dL Hospital in Serum or Plasma ID Date Data Source [id number] 01/11/2020 03:15:00 PM [facility] THERAPEUTIC RANGE: 10.0-30.0 UG/MLTOXIC RANGE: 4 HRS AFTER INGESTION >150 UG/ML 12 HRS AFTER INGESTION >35 UG/ML Name Value Range Interpretation Description Data Sup porting Code Source(s) Document(s ) ACETAMINOPHEN < 10.0 [place] ug/mL Hospital ID Date Data Source [id number] 01/11/2020 03:15:00 PM [facility] Name Value Range Interpretation Code Description Data Jolene rce(s) Supporting Document(s ) Lipase 40 U/L [place] [Enzymatic Hospital activity/vo lume] in Serum or Plasma ID Date Data Source [id number] 01/11/2020 03:15:00 PM [facility] Name Value Range Interpretation Description Data Sup porting Code Source(s) Document(s ) Aspartate 38 U/L [place] aminotransferase [place] [Enzymatic Hospital activity/volume] in Serum or Plasma ID Date Data Source [id number] 01/11/2020 03:15:00 PM [facility] Name Value Range Interpretation Description Data Sup porting Code Source(s) Document(s ) Alanine 27 U/L [place] aminotransferase [place] [Enzymatic Hospital activity/volume] in Serum or Plasma ID Date Data Source [id number] 01/11/2020 03:15:00 PM [facility] Name Value Range Interpretation Description Data Sup porting Code Source(s) Document(s ) Alkaline 73 U/L [place] phosphatase [facility] [Enzymatic activity/volume ] in Serum or Plasma ID Date Data Source [id number] 01/11/2020 03:15:00 PM EDT Name Value Range Interpretation Description Data Sup porting Code Source(s) Document(s ) Bilirubin.t 0.6 mg/dL [facility] [Mass/volum e] in Serum or Plasma ID Date Data Source [id number] 01/11/2020 03:15:00 PM EDT Name Value Range Interpretation Code Description Data Jolene rce(s) Supporting Document(s ) [facility] in Serum or Plasma ID Date Data Source [id number] 01/11/2020 03:15:00 PM EDT Name Value Range Interpretation Description Data Sup porting Code Source(s) Document(s ) Albumin 4.6 g/dL [place] [Mass/volume Hospital ] in Serum or Plasma ID Date Data Source [id number] 01/11/2020 03:15:00 PM EDT Name Value Range Interpretation Description Data Sup porting Code Source(s) Document(s ) Protein 7.2 g/dL [place] [Mass/volume Hospital ] in Serum or Plasma ID Date Data Source [id number] 01/11/2020 03:15:00 PM EDT Name Value Range Interpretation Description Data Sup porting Code Source(s) Document(s ) Calcium 8.1 mg/dL [place] [Mass[facility]volume Hospital ] in Serum or Plasma ID Date Data Source [id number] 01/11/2020 03:15:00 PM EDT Name Value Range Interpretation Code Description Data Jolene rce(s) Supporting Document(s ) Urea 15.0 [place] nitrogen/Cre Hospital atinine [Mass Ratio] in Serum or Plasma ID Date Data Source [id number] 01/11/2020 [facility] Value Range Interpretation Description Data Sup porting Code Source(s) Document(s ) Creatinine 0.6 mg/dL [place] [Mass/volume] Hospital in Serum or Plasma ID Date Data Source [id number] 01/11/2020 03:15:00 PM EDT [facility] Value Range Interpretation Description Data Sup porting Code Source(s) Document(s ) Urea nitrogen 9 mg/dL [place] [Mass/volume] Hospital in Serum or Plasma ID Date Data Source [id number] 01/11/2020 03:15:[address] [facility] Value Range Interpretation Code Description Data Jolene rce(s) Supporting Document(s ) Anion gap in 15 [place] Serum or [facility] Plasma ID Date Data Source [id number] 01/11/2020 03:15:00 PM EDT [facility] Value Range Interpretation Description Data Sup porting Code Source(s) Document(s ) Carbon 28 mmol/L [place] dioxide, Hospital total [Moles/volu me] in Serum or Plasma ID Date Data Source [id number] 01/11/2020 03:15:00 PM EDT [facility] Value Range Interpretation Description Data Sup porting Code Source(s) Document(s ) Chloride 102 [place] [Moles/volum mmol/L Hospital e] in Serum or Plasma ID Date Data Source [id number] 01/11/2020 03:15:[facility] [address] [facility] Value Range Interpretation Description Data Sup porting Code Source(s) Document(s ) Potassium 4.2 [place] [Moles/volume mmol/L Hospital ] in Serum or Plasma ID Date Data Source [id number] 01/11/2020 03:15:00 PM EDT Name Value Range Interpretation Description Data Sup porting Code Source(s) Document(s ) Sodium 141 mmol/L [place] [Moles/volu Hospital md] in Serum or Plasma ID Date Data Source [id number] 01/11/2020 03:15:00 PM EDT [facility] Value Range Interpretation Description Data Sup porting Code Source(s) Document(s ) Glucose 115 mg/dL [place] [Mass/volume Hospital ] in Serum or Plasma ID Date Data Source [id number] 01/11/2020 03:15:00 PM EDT [facility] Value Range Interpretation Code Description Data Supporting Source(s) Document(s ) NUCLEATED RBCS 0.0 % [place] (AUTO Hospital DIFF%)DIS ID Date Data Source [id number] 01/11/2020 03:15:00 PM EDT [facility] Value Range Interpretation Description Data Sup porting Code Source(s) Document(s ) Differential AUTOMATED [place] cell count [facility] method - Blood ID Date Data Source [id number] 01/11/2020 03:15:00 PM EDT [facility] Value Range Interpretation Description Data Sup porting Code Source(s) Document(s ) Eosinophils/100 0.4 % [place] leukocytes in Hospital Blood by Automated count ID Date Data Source [id number] 01/11/2020 03:15:00 PM EDT [facility] Value Range Interpretation Description Data Sup porting Code Source(s) Document(s ) Monocytes/100 4.9 % [place] leukocytes in Hospital Blood by Automated count ID Date Data Source [id number] 01/11/2020 03:15:00 PM EDT [facility] Name Value Range Interpretation Description Data Sup porting Code Source(s) Document(s ) Lymphocytes/10 20.6 % [place] 0 leukocytes Hospital in Blood by Automated count ID Date Data Source [id number] 01/11/2020 03:15:00 PM EDT [facility] Value Range Interpretation Description Data Sup porting Code Source(s) Document(s ) Neutrophils/10 73.7 % [place] 0 leukocytes Hospital in Blood by Automated count ID Date Data Source [id number] 01/11/2020 03:15:00 PM EDT [facility] Value Range Interpretation Description Data Sup porting Code Source(s) Document(s ) Platelet mean 8.9 fL [place] volume Hospital [Entitic volume] in Blood by Automated count ID Date Data Source [id number] 01/11/2020 03:15:00 PM EDT [facility] Value Range Interpretation Description Data Sup porting Code Source(s) Document(s ) Platelets 270 [place] [#/volume] in 10*3/uL Hospital Blood by Automated count ID Date Data Source [id number] 01/11/2020 03:15:00 PM EDT [facility] Value Range Interpretation Description Data Sup porting Code Source(s) Document(s ) Erythrocyte 11.1 % [place] distribution Hospital width [Ratio] by Automated count ID Date Data Source [id number] 01/11/2020 03:15:00 PM EDT [facility] Value Range Interpretation Description Data Sup porting Code Source(s) Document(s ) Erythrocyte mean 34.6 [place] corpuscular g/dL Hospital hemoglobin concentration [Mass/volume] by Automated count ID Date Data Source [id number] 01/11/2020 03:15:00 PM EDT [facility] Value Range Interpretation Description Data Sup porting Code Source(s) Document(s ) Erythrocyte 32.7 pg [place] mean Hospital corpuscular hemoglobin [Entitic mass] by Automated count ID Date Data Source [id number] 01/11/2020 03:15:00 PM EDT Name Value Range Interpretation Description Data Sup porting Code Source(s) Document(s ) Erythrocyte 94.3 fL [place] mean Hospital corpuscular volume [Entitic volume] by Automated count ID Date Data Source [id number] 01/11/2020 03:15:00 PM EDT Name Value Range Interpretation Description Data Sup porting Code Source(s) Document(s ) Hematocrit 41.6 % [place] [Volume Hospital Fraction] of Blood by Automated count ID Date Data Source [id number] 01/11/2020 03:15:00 PM EDT [facility] Value Range Interpretation Description Data Sup porting Code Source(s) Document(s ) Hemoglobin 14.4 g/dL [place] [Mass/volume] Hospital in Blood ID Date Data Source [id number] 01/11/2020 03:15:00 PM EDT [facility] Value Range Interpretation Description Data Sup porting Code Source(s) Document(s ) Erythrocytes 4.41 [place] [#/volume] in 10*6/uL Hospital Blood by Automated count ID Date Data Source [id number] 01/11/2020 03:15:00 PM EDT Name Value Range Interpretation Description Data Sup porting Code Source(s) Document(s ) Leukocytes 8.0 [place] [#/volume] in 10*3/uL Hospital Blood by Automated count ID Date Data Source [id number] 01/11/2020 03:15:00 PM EDT [facility] Value Range Interpretation Description Data Sup porting Code Source(s) Document(s ) Immature 0.02 [place] granulocytes 10*3/uL Hospital [#/volume] in Blood by Automated count ID Date Data Source [id number] 01/11/2020 03:15:00 PM EDT Name Value Range Interpretation Description Data Sup porting Code Source(s) Document(s ) Basophils 0.02 [place] [#/volume] in 10*3/uL Hospital Blood by Automated count ID Date Data Source [id number] 01/11/2020 03:15:00 PM EDT [facility] Value Range Interpretation Description Data Sup porting Code Source(s) Document(s ) Eosinophils 0.03 [place] [#/volume] in 10*3/uL Hospital Blood by Automated count ID Date Data Source [id number] 01/11/2020 03:15:00 PM EDT [facility] Value Range Interpretation Description Data Sup porting Code Source(s) Document(s ) Monocytes 0.39 [place] [#/volume] in 10*3/uL Hospital Blood by Automated count ID Date Data Source [id number] 01/11/2020 03:15:00 PM EDT [facility] Value Range Interpretation Description Data Sup porting Code Source(s) Document(s ) Lymphocytes 1.65 [place] [#/volume] in 10*3/uL Hospital Blood by Automated count ID Date Data Source [id number] 01/11/2020 03:15:00 PM EDT Name Value Range Interpretation Description Data Sup porting Code Source(s) Document(s ) Neutrophils 5.90 [place] [#/volume] in 10*3/uL Hospital Blood by Automated count ID Date Data Source [id number] 01/11/2020 03:15:00 PM EDT [facility] Value Range Interpretation Description Data Sup porting Code Source(s) Document(s ) Nucleated 0.0 % [place] erythrocytes/10 Hospital 0 leukocytes [Ratio] in Blood by Automated count ID Date Data Source [id number] [facility] Interpretation Description Data Sup porting Code Source(s) Document(s ) Immature 0.2 % [place] granulocytes/10 Hospital 0 leukocytes in Blood by Automated count ID Date Data Source [id number] [facility]/11[facility] Value Range Interpretation Description Data Sup porting Code Source(s) Document(s ) Basophils/100 0.2 % [place] leukocytes in Hospital Blood by Automated count ID Date Data Source [id number] 01/11/2020 02:47:00 PM [facility] Office Support Clerk:BRANDEN NICHOLSON Name Value Range Interpretation Description Data Sup porting Code Source(s) Document(s ) Glucose 129 mg/dL [place] [Mass/volume] Hospital in Capillary blood by Glucometer ID Date Data Source [id number] 12/19/2019 06:41:00 AM [facility] Office Support Clerk:VIDYA SCHREIBER Name Value Range Interpretation Description Data Sup porting Code Source(s) Document(s ) Glucose 94 mg/dL [place] [Mass/volume] Hospital in Capillary blood by Glucometer ID Date Data Source [id number] 12/19/2019 05:22:00 AM [facility] Name Value Range Interpretation Description Data Sup porting Code Source(s) Document(s ) Calcium 8.8 mg/dL [place] [Mass/volume Hospital ] in Serum or Plasma ID Date Data Source [id number] 12/19/2019 05:22:00 AM [facility] Value Range Interpretation Code Description Data Jolene rce(s) Supporting Document(s ) Urea 18.8 [place] nitrogen/Cre Hospital atinine [Mass Ratio] in Serum or Plasma ID Date Data Source [id number] 12/19/2019 05:22:00 AM EDT Name Value Range Interpretation Description Data Sup porting Code Source(s) Document(s ) Creatinine 0.8 mg/dL [place] [Mass/volume] Hospital in Serum or Plasma ID Date Data Source [id number] 12/19/2019 [facility] VERIFIED. Name Value Range Interpretation Description Data Sup porting Code Source(s) Document(s ) Urea 15 mg/dL [place] nitrogen Hospital [Mass/volume ] in Serum or Plasma ID Date Data Source [id number] 12/19/2019 [facility] Name Value Range Interpretation Code Description Data Jolene rce(s) Supporting Document(s ) Anion gap in 11 [place] Serum or [facility] Plasma ID Date Data Source [id number] 12/19/2019 [facility] Value Range Interpretation Description Data Sup porting Code Source(s) Document(s ) Carbon 28 mmol/L [place] dioxide, Hospital total [Moles/volu me] in Serum or Plasma ID Date Data Source [id number] 12/19/2019 05:22:[facility] Name Value Range Interpretation Description Data Sup porting Code Source(s) Document(s ) Chloride 102 [place] [Moles/volum mmol/L Hospital e] in Serum or Plasma ID Date Data Source [id number] 12/19/2019 [facility]:22[facility] Value Range Interpretation Description Data Sup porting Code Source(s) Document(s ) Potassium 3.5 [place] [Moles/volume mmol/L Hospital ] in Serum or Plasma ID Date Data Source [id number] 12/19/2019 [facility]:22[facility] Range Interpretation Description Data Sup porting Code Source(s) Document(s ) Sodium 137 mmol/L [place] [Moles/volu Hospital md] in Serum or Plasma ID Date Data Source [id number] 12/19/2019 05:22:00 AM EDT [facility] Value Range Interpretation Description Data Sup porting Code Source(s) Document(s ) Glucose 115 mg/dL [place] [Mass/volume Hospital ] in Serum or Plasma ID Date Data Source [id number] 12/19/2019 05:22:[address] [facility] Value Range Interpretation Code Description Data Supporting Source(s) Document(s ) NUCLEATED RBCS 0.0 % [place] (AUTO Hospital DIFF%)DIS ID Date Data Source [id number] 12/19/2019 05:22:[facility] [address] [facility] Value Range Interpretation Description Data Sup porting Code Source(s) Document(s ) Differential AUTOMATED [place] cell count [facility] method - Blood ID Date Data Source [id number] 12/19/2019 05:22:[address] [facility] Value Range Interpretation Description Data Sup porting Code Source(s) Document(s ) Immature 0.01 [place] granulocytes 10*3/uL Hospital [#/volume] in Blood by Automated count ID Date Data Source [id number] 12/19/2019 05:22:[address] [facility] Value Range Interpretation Description Data Sup porting Code Source(s) Document(s ) Basophils 0.03 [place] [#/volume] in 10*3/uL Hospital Blood by Automated count ID Date Data Source [id number] 12/19/2019 05:22:00 AM EDT Name Value Range Interpretation Description Data Sup porting Code Source(s) Document(s ) Eosinophils 0.26 [place] [#/volume] in 10*3/uL Hospital Blood by Automated count ID Date Data Source [id number] 12/19/2019 05:22:00 AM EDT Name Value Range Interpretation Description Data Sup porting Code Source(s) Document(s ) Monocytes 0.32 [place] [#/volume] in 10*3/uL Hospital Blood by Automated count ID Date Data Source [id number] 12/19/2019 05:22:00 AM EDT [facility] Value Range Interpretation Description Data Sup porting Code Source(s) Document(s ) Lymphocytes 1.87 [place] [#/volume] in 10*3/uL Hospital Blood by Automated count ID Date Data Source [id number] 12/19/2019 05:22:00 AM EDT [facility] Value Range Interpretation Description Data Sup porting Code Source(s) Document(s ) Neutrophils 3.07 [place] [#/volume] in 10*3/uL Hospital Blood by Automated count ID Date Data Source [id number] 12/19/2019 05:22:00 AM EDT [facility] Value Range Interpretation Description Data Sup porting Code Source(s) Document(s ) Nucleated 0.0 % [place] erythrocytes/10 Hospital 0 leukocytes [Ratio] in Blood by Automated count ID Date Data Source [id number] 12/19/2019 05:22:00 AM EDT [facility] Value Range Interpretation Description Data Sup porting Code Source(s) Document(s ) Immature 0.2 % [place] granulocytes/10 Hospital 0 leukocytes in Blood by Automated count ID Date Data Source [id number] 12/19/2019 05:22:00 AM EDT Name Value Range Interpretation Description Data Sup porting Code Source(s) Document(s ) Basophils/100 0.5 % [place] leukocytes in Hospital Blood by Automated count ID Date Data Source [id number] 12/19/2019 05:22:00 AM EDT Name Value Range Interpretation Description Data Sup porting Code Source(s) Document(s ) Eosinophils/100 4.7 % [place] leukocytes in [facility] Blood by Automated count ID Date Data Source [id number] 12/19/2019 05:22:[facility] Value Range Interpretation Description Data Sup porting Code Source(s) Document(s ) Monocytes/100 5.8 % [place] leukocytes in Hospital Blood by Automated count ID Date Data Source [id number] 12/19/2019 05:22:00 AM EDT Name Value Range Interpretation Description Data Sup porting Code Source(s) Document(s ) Lymphocytes/10 33.6 % [place] 0 leukocytes Hospital in Blood by Automated count ID Date Data Source [id number] 12/19/2019 05:22:00 AM EDT [facility] Value Range Interpretation Description Data Sup porting Code Source(s) Document(s ) Neutrophils/10 55.2 % [place] 0 leukocytes Hospital in Blood by Automated count ID Date Data Source [id number] 12/19/2019 [facility] Interpretation Description Data Sup porting Code Source(s) Document(s ) Platelet mean 9.3 fL [facility] [Entitic volume] in Blood by Automated count ID Date Data Source [id number] 12/19/2019 05:22:00 AM [facility] Value Range Interpretation Description Data Sup porting Code Source(s) Document(s ) Platelets 266 [place] [#/volume] in 10*3/uL Hospital Blood by Automated count ID Date Data Source [id number] 12/19/2019 05:22:00 AM [facility] Value Range Interpretation Description Data Sup porting Code Source(s) Document(s ) Erythrocyte 11.6 % [facility] Hospital width [Ratio] by Automated count ID Date Data Source [id number] 12/19/2019 05:22:00 AM [facility] Value Range Interpretation Description Data Sup porting Code Source(s) Document(s ) Erythrocyte mean 34.5 [place] corpuscular g/dL Hospital hemoglobin concentration [Mass/volume] by Automated count ID Date Data Source [id number] 12/19/2019 05:22:00 AM [facility] Value Range Interpretation Description Data Sup porting Code Source(s) Document(s ) Erythrocyte 33.3 pg [facility] corpuscular hemoglobin [Entitic mass] by Automated count ID Date Data Source [id number] 12/19/2019 05:22:00 AM [facility] Value Range Interpretation Description Data Sup porting Code Source(s) Document(s ) Erythrocyte 96.4 fL [facility] corpuscular volume [Entitic volume] by Automated count ID Date Data Source [id number] 12/19/2019 05:22:00 AM [facility] Value Range Interpretation Description Data Sup porting Code Source(s) Document(s ) Hematocrit 39.7 % [place] [Volume Hospital Fraction] of Blood by Automated count ID Date Data Source [id number] 12/19/2019 05:22:00 AM EDT [facility] [facility] Name Value Range Interpretation Description Data Sup porting Code Source(s) Document(s ) Hemoglobin 13.7 g/dL [place] [Mass/volume] Hospital in Blood ID Date Data Source [id number] 12/19/2019 05:22:00 AM EDT Name Value Range Interpretation Description Data Sup porting Code Source(s) Document(s ) Erythrocytes 4.12 [place] [#/volume] in 10*6/uL Hospital Blood by Automated count ID Date Data Source [id number] 12/19/2019 05:22:00 AM EDT Name Value Range Interpretation Description Data Sup porting Code Source(s) Document(s ) Leukocytes 5.6 [place] [#/volume] in 10*3/uL Hospital Blood by Automated count ID Date Data Source [id number] 12/18/2019 08:59:00 AM EDT Name Value Range Interpretation Description Data Sup porting Code Source(s) Document(s ) Phosphate 3.3 mg/dL [place] [Mass/volume] Hospital in Serum or Plasma ID Date Data Source [id number] 12/18/2019 08:59:00 AM EDT [facility] Value Range Interpretation Description Data Sup porting Code Source(s) Document(s ) Magnesium 1.8 mg/dL [place] [Mass/volume] Hospital in Serum or Plasma ID Date Data Source [id number] [facility] Interpretation Description Data Sup porting Code Source(s) Document(s ) Bilirubin.d 0.5 mg/dL [facility] [Mass/volum e] in Serum or Plasma ID Date Data Source [id number] 12/18/2019 08:59:00 AM EDT Name Value Range Interpretation Description Data Sup porting Code Source(s) Document(s ) Phosphate 3.3 mg/dL [place] [Mass/volume] Hospital in Serum or Plasma ID Date Data Source [id number] 12/18/2019 08:59:00 AM EDT Name Value Range Interpretation Description Data Sup porting Code Source(s) Document(s ) Magnesium 1.8 mg/dL [place] [Mass/volume] Hospital in Serum or Plasma ID Date Data Source [id number] 12/18/2019 08:59:00 AM EDT Name Value Range Interpretation Description Data Sup porting Code Source(s) Document(s ) Aspartate 36 U/L White aminotransferase [place] [Enzymatic Hospital activity/volume] in Serum or Plasma ID Date Data Source [id number] 12/18/2019 08:59:00 AM EDT Name Value Range Interpretation Description Data Sup porting Code Source(s) Document(s ) Alanine 34 U/L White aminotransferase [place] [Enzymatic Hospital activity/volume] in Serum or Plasma ID Date Data Source [id number] 12/18/2019 08:59:00 AM EDT [facility] [facility] Name Value Range Interpretation Description Data Sup porting Code Source(s) Document(s ) Alkaline 55 U/L [place] phosphatase Hospital [Enzymatic activity/volume ] in Serum or Plasma ID Date Data Source [id number] 12/18/2019 08:59:00 AM EDT [facility] [facility] Name Value Range Interpretation Description Data Sup porting Code Source(s) Document(s ) Bilirubin.d 0.5 mg/dL [place] [facility] [Mass/volum e] in Serum or Plasma ID Date Data Source [id number] 12/18/2019 08:59:00 AM EDT [place] [facility] Name Value Range Interpretation Description Data Sup porting Code Source(s) Document(s ) Bilirubin.t 1.6 mg/dL [facility] [Mass/volum e] in Serum or Plasma ID Date Data Source [id number] 12/18/2019 08:59:00 AM EDT [facility] Value Range Interpretation Code Description Data Jolene rce(s) Supporting Document(s ) [facility] in Serum or Plasma ID Date Data Source [id number] 12/18/2019 08:59:00 AM EDT [facility] Value Range Interpretation Description Data Sup porting Code Source(s) Document(s ) Albumin 3.9 g/dL [place] [Mass/volume Hospital ] in Serum or Plasma ID Date Data Source [id number] 12/18/2019 08:59:00 AM EDT [facility] Value Range Interpretation Description Data Sup porting Code Source(s) Document(s ) Protein 6.0 g/dL [place] [Mass/volume Hospital ] in Serum or Plasma ID Date Data Source [id number] 12/17/2019 09:04:00 PM EDT [facility] Value Range Interpretation Description Data Sup porting Code Source(s) Document(s ) GLUCOSE RN Notified [facility] Hospital ID Date Data Source [id number] 12/17/2019 09:04:00 PM EDT [facility] Value Range Interpretation Description Data Sup porting Code Source(s) Document(s ) GLUCOSE RN Notified [facility] Hospital ID Date Data Source [id number] 12/17/2019 12:52:00 PM EDT [facility] Value Range Interpretation Description Data Sup porting Code Source(s) Document(s ) MEAN 93.2 fL [facility] VOLUME ID Date Data Source [id number] 12/17/2019 12:52:00 PM EDT Name Value Range Interpretation Description Data Sup porting Code Source(s) Document(s ) MEAN 93.2 fL [place] CORPUSCULAR [facility] VOLUME ID Date Data Source [id number] 12/17[facility]2019 [facility] Value Range Interpretation Description Data Sup porting Code Source(s) Document(s ) Thyrotropin 3.178 [place] [Units/volume] u[IU]/mL Hospital in Serum or Plasma by Detection limit <= 0.005 mIU/L ID Date Data Source [id number] 12/17/2019 10:25:00 AM [facility] Name Value Range Interpretation Description Data Sup porting Code Source(s) Document(s ) Folate 8.1 ng/mL [place] [Mass/volum Hospital e] in Serum or Plasma ID Date Data Source [id number] 12/17/2019 10:25:00 AM [facility] Name Value Range Interpretation Description Data Sup porting Code Source(s) Document(s ) Cobalamin 582 pg/mL [place] (Vitamin B12) [facility] [Mass/volume] in Serum or Plasma ID Date Data Source [id number] 12/17/2019 10:25:00 AM [facility] ADA RECOMMENDATIONS: NON-DIABETES: 4.0-6.0% CONTROLLED DIABETES: 6.0-8.0% UNCONTROLLED DIABETE S: UP TO 20%RECOMMENDED ADA RESULT FOR THERAPY: HEMOGLOBIN A1C RESULT LESS NATHANIEL N 7%.NOTE: METHOD CHANGE EFFECTIVE 11/22/14. Name Value Range Interpretation Description Data Sup porting Code Source(s) Document(s ) Hemoglobin 6.4 % [place] A1c/Hemoglobin. Hospital total in Blood ID Date Data Source [id number] 12/17/2019 10:25:00 AM EDT Name Value Range Interpretation Description Data Sup porting Code Source(s) Document(s ) Thyrotropin 3.178 [place] [Units/volume] u[IU]/mL Hospital in Serum or Plasma by Detection limit <= 0.005 mIU/L ID Date Data Source [id number] 12/17/2019 10:25:00 AM EDT Name Value Range Interpretation Description Data Sup porting Code Source(s) Document(s ) Folate 8.1 ng/mL [place] [Mass/volum Hospital e] in Serum or Plasma ID Date Data Source [id number] 12/17/2019 10:25:00 AM [facility] Name Value Range Interpretation Description Data Sup porting Code Source(s) Document(s ) Cobalamin 582 pg/mL [place] (Vitamin B12) Hospital [Mass/volume] in Serum or Plasma ID Date Data Source [id number] 12/16[facility]2019 [facility]47[facility] >= 25 NG/ML.THE FINDINGS OF THE URINE DRUG SCREEN ARE USED SOLELY FOR PATIENT MANAGEMENT AND GUIDANCE. THE RESULTS TOLU ULD NOT BE USED FOR FORENSIC PURPOSE. ANY CLINICALLY UNSUSPECTED POSITIVE DRUG SCR EEN CAN BE CONFIRMED BY CALLING THE LABORATORY 3 DAYS WITHIN RECEIPT OF REPO RT. Name Value Range Interpretation Code Description Data Jolene rce(s) Supporting Document(s ) PCP (UR) NEGATIVE ID Date Data Source [id number] 12/16/2019 [facility]47[facility] >= 50 NG/ML. Name Value Range Interpretation Code Description Data Jolene rce(s) Supporting Document(s ) THC (UR) NEGATIVE ID Date Data Source [id number] 12/16/2019 [facility]47[facility]UT-[facility] >= 300 NG/ML. Name Value Range Interpretation Description Data Sup porting Code Source(s) Document(s ) OPIATES (UR) NEGATIVE [place] [facility] ID Date Data Source [id number] 12/16/2019 05:47:00 PM EDT CUT-OFF >= 300 NG/ML. Name Value Range Interpretation Description Data Sup porting Code Source(s) Document(s ) COCAINE (UR) NEGATIVE [place] [facility] ID Date Data Source [id number] 12/16/2019 05:47:00 PM EDT CUT-OFF >= 200 NG/ML. Name Value Range Interpretation Description Data Sup porting Code Source(s) Document(s ) BENZODIAZEPINES NEGATIVE [place] (UR) [place] [facility] ID Date Data Source [id number] 12/16/2019 05:47:00 PM EDT CUT-OFF >= 200 NG/ML. Name Value Range Interpretation Description Data Sup porting Code Source(s) Document(s ) BARBITURATES NEGATIVE [place] (UR) Hospital ID Date Data Source [id number] 12/16/2019 05:47:00 PM EDT CUT-OFF >= 1000 NG/ML. Name Value Range Interpretation Description Data Sup porting Code Source(s) Document(s ) AMPHETAMINES NEGATIVE [place] (UR) Hospital ID Date Data Source [id number] 12/16/2019 05:47:00 PM EDT Name Value Range Interpretation Description Data Sup porting Code Source(s) Document(s ) Leukocyte NEGATIVE [place] esterase Hospital [Presence] in Urine by Test strip ID Date Data Source [id number] 12/16/2019 05:47:00 PM EDT Name Value Range Interpretation Description Data Sup porting Code Source(s) Document(s ) URINE NEGATIVE [place] NITRITE Hospital ID Date Data Source [id number] 12/16/2019 05:47:00 PM EDT Name Value Range Interpretation Description Data Sup porting Code Source(s) Document(s ) Erythrocytes NEGATIVE [place] [#/volume] in Hospital Urine by Test strip ID Date Data Source [id number] 12/16/2019 05:47:00 PM EDT Name Value Range Interpretation Code Description Data Jolene rce(s) Supporting Document(s ) Bilirubin. NEGATIVE [place] total Hospital [Presence] in Urine by Test strip ID Date Data Source [id number] 12/16/2019 05:47:00 PM EDT Name Value Range Interpretation Description Data Sup porting Code Source(s) Document(s ) Urobilinogen 0.2 [place] [Units/volume] mg/dL Hospital in Urine by Test strip ID Date Data Source [id number] 12/16/2019 05:47:00 PM EDT Name Value Range Interpretation Description Data Sup porting Code Source(s) Document(s ) Ketones NEGATIVE [place] [Mass/volume Hospital ] in Urine by Test strip ID Date Data Source [id number] 12/16/2019 05:47:00 PM EDT Name Value Range Interpretation Code Description Data Jolene rce(s) Supporting Document(s ) Glucose 2+ [place] [Mass/volume Hospital ] in Urine by Test strip ID Date Data Source [id number] 12/16/2019 05:47:00 PM EDT Name Value Range Interpretation Description Data Sup porting Code Source(s) Document(s ) Protein NEGATIVE [place] [Presence] Hospital in Urine by Test strip ID Date Data Source [id number] 12/16/2019 05:47:00 PM EDT Name Value Range Interpretation Code Description Data Jolene rce(s) Supporting Document(s ) pH of Urine 6.5 [place] by Test Hospital strip ID Date Data Source [id number] 12/16/2019 05:47:00 PM EDT Name Value Range Interpretation Code Description Data Supporting Source(s) Document(s ) Specific 1.007 [place] gravity of Hospital Urine by Test strip ID Date Data Source [id number] 12/16/2019 05:47:00 PM EDT Name Value Range Interpretation Description Data Sup porting Code Source(s) Document(s ) Clarity in Urine CLEAR [place] by Refractometry Hospital automated ID Date Data Source [id number] 12/16[facility]2019 [facility] Value Range Interpretation Code Description Data Jolene rce(s) Supporting Document(s ) Color of YELLOW [place] Urine Hospital ID Date Data Source [id number] 12/16/2019 05:47:00 PM [facility] CUT-OFF >= 25 NG/ML.THE FINDINGS OF THE URINE DRUG SCREEN ARE USED SOLELY FOR PATIENT MANAGEMENT AND GUIDANCE. THE RESULTS TOLU ULD NOT BE USED FOR FORENSIC PURPOSE. ANY CLINICALLY UNSUSPECTED POSITIVE DRUG SCR EEN CAN BE CONFIRMED BY CALLING THE LABORATORY 3 DAYS WITHIN RECEIPT OF REPO RT. Name Value Range Interpretation Code Description Data Jolene rce(s) Supporting Document(s ) PCP (UR) NEGATIVE ID Date Data Source [id number] 12/16/2019 05:47:00 PM [facility] CUT-OFF >= 50 NG/ML. Name Value Range Interpretation Code Description Data Jolene rce(s) Supporting Document(s ) THC (UR) NEGATIVE [place] [facility] ID Date Data Source [id number] 12/16/2019 [facility]:47[facility] 300 NG/ML. Name Value Range Interpretation Description Data Sup porting Code Source(s) Document(s ) OPIATES (UR) NEGATIVE [place] [facility] ID Date Data Source [id number] 12/16/2019 05:47:00 PM EDT CUT-OFF >= 300 NG/ML. Name Value Range Interpretation Description Data Sup porting Code Source(s) Document(s ) COCAINE (UR) NEGATIVE ID Date Data Source [id number] 12/16/2019 05:47:00 PM EDT CUT-OFF >= 200 NG/ML. Name Value Range Interpretation Description Data Sup porting Code Source(s) Document(s ) BENZODIAZEPINES NEGATIVE [place] (UR) [facility] ID Date Data Source [id number] 12/16/2019 05:47:00 PM EDT CUT-OFF >= 200 NG/ML. Name Value Range Interpretation Description Data Sup porting Code Source(s) Document(s ) BARBITURATES NEGATIVE [place] (UR) Hospital ID Date Data Source [id number] 12/16/2019 05:47:00 PM [facility] CUT-OFF >= 1000 NG/ML. Name Value Range Interpretation Description Data Sup porting Code Source(s) Document(s ) AMPHETAMINES NEGATIVE [place] (UR) Hospital ID Date Data Source [id number] 12/16/2019 [facility]47[facility] Value Range Interpretation Description Data Sup porting Code Source(s) Document(s ) Leukocyte NEGATIVE [place] esterase Hospital [Presence] in Urine by Test strip ID Date Data Source [id number] 12/16/2019 [facility]:47[facility] Name Value Range Interpretation Description Data Sup porting Code Source(s) Document(s ) URINE NEGATIVE [place] NITRITES Hospital ID Date Data Source [id number] 12/16/2019 05:47:00 PM EDT Name Value Range Interpretation Description Data Sup porting Code Source(s) Document(s ) Erythrocytes NEGATIVE [place] [#/volume] in Hospital Urine by Test strip ID Date Data Source [id number] 12/16/2019 05:47:00 PM EDT Name Value Range Interpretation Code Description Data Jolene rce(s) Supporting Document(s ) Bilirubin. NEGATIVE [place] total Hospital [Presence] in Urine by Test strip ID Date Data Source [id number] 12/16/2019 05:47:00 PM EDT Name Value Range Interpretation Description Data Sup porting Code Source(s) Document(s ) Urobilinogen 0.2 [place] [Units/volume] mg/dL Hospital in Urine by Test strip ID Date Data Source [id number] 12/16/2019 05:47:00 PM EDT Name Value Range Interpretation Description Data Sup porting Code Source(s) Document(s ) Ketones NEGATIVE [place] [Mass/volume Hospital ] in Urine by Test strip ID Date Data Source [id number] 12/16/2019 05:47:00 PM EDT Name Value Range Interpretation Code Description Data Jolene rce(s) Supporting Document(s ) Glucose 2+ [place] [Mass/volume Hospital ] in Urine by Test strip ID Date Data Source [id number] 12/16/2019 05:47:00 PM EDT Name Value Range Interpretation Description Data Sup porting Code Source(s) Document(s ) Protein NEGATIVE [place] [Presence] Hospital in Urine by Test strip ID Date Data Source [id number] 12/16/2019 05:47:00 PM [facility] Name Value Range Interpretation Code Description Data Jolene rce(s) Supporting Document(s ) pH of Urine 6.5 [place] by Test Hospital strip ID Date Data Source [id number] 12/16/2019 05:47:00 PM [facility] Name Value Range Interpretation Code Description Data Supporting Source(s) Document(s ) Specific 1.007 [place] gravity of Hospital Urine by Test strip ID Date Data Source [id number] 12/16/2019 05:47:00 PM [facility] Name Value Range Interpretation Description Data Sup porting Code Source(s) Document(s ) Clarity in Urine CLEAR [place] by Refractometry [facility] automated ID Date Data Source [id number] 12/16/2019 05:47:00 PM [facility] Name Value Range Interpretation Code Description Data Jolene rce(s) Supporting Document(s ) Color of YELLOW [place] Urine Hospital ID Date Data Source [id number] 12/16/2019 04:02:00 PM [facility] NOTIFICATION AND READ BACK OF CRITICAL R ESULTS TO HEAVENLY DOWD RN, ED AT 1718 ON 12/16/19 BY Lanette Kennedy.REFERENCE RAN GES: NONE DETECTED <20 MG/DL NONE TO MILD EUPHORIA 20-49 MG/DL MILD EUPHORIA 50-99 MG/DL MODERATE EUPHORIA 100-149 MG/DL INTOXICATION 150-300 MG/DLREPORTED CRITICAL VALUES SHOULD BE INTERPRETED WITHIN CLINICAL CONTEXT. Name Value Range Interpretation Description Data Sup porting Code Source(s) Document(s ) Ethanol 470 mg/dL [place] [Mass/volume Hospital ] in Serum or Plasma ID Date Data Source [id number] 12/16/2019 04:02:00 PM [facility] TEST RESULT IS A TOTAL TRICYCLIC VALUE.T RICYCLIC ANTIDEPRESSANT REFERENCE RANGE: AMITRIPTYLINE AND METABOLITE (NORTRIPTYL INE) TOTAL THERAPEUTIC: 75 - 225 NG/ML. TOTAL TOXIC: > 400 NG/ML. NORTRIPTYLINE ONLY TOTAL THERAPEUTIC: 50 - 150 NG/ML. TOTAL TOXIC: > 400 NG/ML. IMIPRAMINE AND METABOLITE (DESIPRAMINE) TOTAL THERAPEUTIC: 125 - 175 NG/ML. TOTAL TOXIC: > 400 NG/ML. Name Value Range Interpretation Description Data Sup porting Code Source(s) Document(s ) TRICYCLIC < 80 [place] ANTIDEPRESSANT ng/mL Hospital ID Date Data Source [id number] 12/16/2019 04:02:00 PM [facility] REFERENCE RANGES: ANALGESIC: 0.0 - 10.0 MG/DL. ARTHRITIC THERAPY: 15.0 - 30.0 MG/DL. Name Value Range Interpretation Description Data Sup porting Code Source(s) Document(s ) Salicylates < 3.0 [place] [Mass/volume] mg/dL Hospital in Serum or Plasma ID Date Data Source [id number] 12/16/2019 04:02:00 PM [facility] THERAPEUTIC RANGE: 10.0-30.0 UG/MLTOXIC RANGE: 4 HRS AFTER INGESTION >150 UG/ML 12 HRS AFTER INGESTION >35 UG/ML Name Value Range Interpretation Description Data Sup porting Code Source(s) Document(s ) ACETAMINOPHEN < 10.0 [place] ug/mL Hospital ID Date Data Source [id number] 12/16/2019 04:02:00 PM [facility] Name Value Range Interpretation Code Description Data Jolene rce(s) Supporting Document(s ) Lipase 45 U/L [place] [Enzymatic Hospital activity/vo lume] in Serum or Plasma ID Date Data Source [id number] 11/10/2019 02:07:00 AM EDT [facility] Name Value Range Interpretation Code Description Data Jolene rce(s) Supporting Document(s ) SARS-CoV-2 [facility] N gene Resp Ql CARA+probe This lab was ordered by [facility] and reported by [facility]. ID Date Data Source [id number] 10/31/2019 12:08:00 PM EDT Office Support Clerk:DANIELA RADHA Name Value Range Interpretation Description Data Sup porting Code Source(s) Document(s ) Glucose 166 mg/dL [place] [Mass/volume] Hospital in Capillary blood by Glucometer ID Date Data Source [id number] 08/12/2019 10:25:00 AM EDT [facility] Name Value Range Interpretation Code Description Data Jolene rce(s) Supporting Document(s ) SARS-CoV-2 [facility] N gene Resp Ql CARA+probe This lab was ordered by [facility] and reported by [facility]. ID Date Data Source [id number] 05/28/2019 12:41:41 PM EST [place] Y ([place] [id number] [facility]) Name Value Range Interpretation Description Data Source(s ) Supporting Code Document(s ) No Results No Results No Results MAGALI ([facility] For [facility]) ID Date Data Source [id number] 05/22/2019 11:14:03 AM EST [place] Y ([place] [id number] [facility]) Name Value Range Interpretation Description Data Source(s ) Supporting Code Document(s ) No Results No Results No Results [facility]AL[facility] ([facility] For [facility]) ID Date Data Source [id number] 03/01/2019 07:20:00 AM [facility] Office Support Clerk:ELISEO MONTAÑO Name Value Range Interpretation Description Data Sup porting Code Source(s) Document(s ) Glucose 192 mg/dL [place] [Mass/volume] Hospital in Capillary blood by Glucometer ID Date Data Source [id number] 02/28/2019 07:35:00 AM [place] [facility] Name Value Range Interpretation Description Data Sup porting Code Source(s) Document(s ) Leukocytes 5.9 [place] [#/volume] in 10*3/uL Hospital Blood by Automated count ID Date Data Source [id number] 02/28/2019 07:35:00 AM [facility] Value Range Interpretation Description Data Sup porting Code Source(s) Document(s ) Erythrocytes 4.29 [place] [#/volume] in 10*6/uL [facility] Blood by Automated count ID Date Data Source [id number] 02/28/2019 07:35:00 AM [facility] Value Range Interpretation Description Data Sup porting Code Source(s) Document(s ) Hemoglobin 14.1 g/dL [place] [Mass/volume] Hospital in Blood ID Date Data Source [id number] 02/28/2019 07:35:00 AM [facility] Value Range Interpretation Description Data Sup porting Code Source(s) Document(s ) Hematocrit 39.7 % [place] [Volume Hospital Fraction] of Blood by Automated count ID Date Data Source [id number] 02/28/2019 07:35:00 AM [facility] Value Range Interpretation Description Data Sup porting Code Source(s) Document(s ) Erythrocyte 92.5 fL [facility] corpuscular volume [Entitic volume] by Automated count ID Date Data Source [id number] 02/28/2019 07:35:00 AM [facility] Value Range Interpretation Description Data Sup porting Code Source(s) Document(s ) Erythrocyte 32.9 pg [facility] Hospital corpuscular hemoglobin [Entitic mass] by Automated count ID Date Data Source [id number] 02/28/2019 07:35:00 AM [facility] Value Range Interpretation Description Data Sup porting Code Source(s) Document(s ) Erythrocyte mean 35.5 [place] corpuscular g/dL Hospital hemoglobin concentration [Mass/volume] by Automated count ID Date Data Source [id number] 02/28/2019 07:35:00 AM [facility] Name Value Range Interpretation Description Data Sup porting Code Source(s) Document(s ) Erythrocyte 10.5 % [place] distribution Hospital width [Ratio] by Automated count ID Date Data Source [id number] 02/28/2019 07:35:00 AM [facility] Name Value Range Interpretation Description Data Sup porting Code Source(s) Document(s ) Platelets 213 [place] [#/volume] in 10*3/uL Hospital Blood by Automated count ID Date Data Source [id number] 02/28/2019 07:35:00 AM [facility] Value Range Interpretation Description Data Sup porting Code Source(s) Document(s ) Platelet mean 9.6 fL [place] volume Hospital [Entitic volume] in Blood by Automated count ID Date Data Source [id number] 02/28/2019 07:35:00 AM [facility] Name Value Range Interpretation Description Data Sup porting Code Source(s) Document(s ) Neutrophils/10 63.8 % [place] 0 leukocytes Hospital in Blood by Automated count ID Date Data Source [id number] 02/28/2019 07:35:00 AM [facility] Name Value Range Interpretation Description Data Sup porting Code Source(s) Document(s ) Lymphocytes/10 23.9 % [place] 0 leukocytes Hospital in Blood by Automated count ID Date Data Source [id number] 02/28/2019 07:35:00 AM [facility] Name Value Range Interpretation Description Data Sup porting Code Source(s) Document(s ) Monocytes/100 8.9 % [place] leukocytes in Hospital Blood by Automated count ID Date Data Source [id number] 02/28/2019 07:35:00 AM [facility] Value Range Interpretation Description Data Sup porting Code Source(s) Document(s ) Eosinophils/100 2.6 % [place] leukocytes in Hospital Blood by Automated count ID Date Data Source [id number] 02/28/2019 07:35:00 AM [facility] Value Range Interpretation Description Data Sup porting Code Source(s) Document(s ) Basophils/100 0.3 % [place] leukocytes in Hospital Blood by Automated count ID Date Data Source [id number] 02/28/2019 07:35:00 AM [facility] Value Range Interpretation Description Data Sup porting Code Source(s) Document(s ) Immature 0.5 % [place] granulocytes/10 Hospital 0 leukocytes in Blood by Automated count ID Date Data Source [id number] 02/28/2019 07:35:00 AM [facility] Value Range Interpretation Description Data Sup porting Code Source(s) Document(s ) Nucleated 0.0 % [place] erythrocytes/10 Hospital 0 leukocytes [Ratio] in Blood by Automated count ID Date Data Source [id number] 02/28/2019 07:35:00 AM [facility] Value Range Interpretation Description Data Sup porting Code Source(s) Document(s ) Neutrophils 3.73 [place] [#/volume] in 10*3/uL Hospital Blood by Automated count ID Date Data Source [id number] 02/28/2019 07:35:00 AM [facility] Value Range Interpretation Description Data Sup porting Code Source(s) Document(s ) Lymphocytes 1.40 [place] [#/volume] in 10*3/uL Hospital Blood by Automated count ID Date Data Source [id number] 02/28/2019 07:35:00 AM [facility] Name Value Range Interpretation Description Data Sup porting Code Source(s) Document(s ) Monocytes 0.52 [place] [#/volume] in 10*3/uL Hospital Blood by Automated count ID Date Data Source [id number] 02/28/2019 07:35:00 AM EST Name Value Range Interpretation Description Data Sup porting Code Source(s) Document(s ) Eosinophils 0.15 [place] [#/volume] in 10*3/uL Hospital Blood by Automated count ID Date Data Source [id number] 02/28/2019 07:35:00 AM [facility] Name Value Range Interpretation Description Data Sup porting Code Source(s) Document(s ) Basophils 0.02 [place] [#/volume] in 10*3/uL Hospital Blood by Automated count ID Date Data Source [id number] 02/28/2019 07:35:00 AM [facility] Value Range Interpretation Description Data Sup porting Code Source(s) Document(s ) Immature 0.03 [place] granulocytes 10*3/uL Hospital [#/volume] in Blood by Automated count ID Date Data Source [id number] 02/28/2019 07:35:00 AM [facility] Value Range Interpretation Description Data Sup porting Code Source(s) Document(s ) Differential AUTOMATED [place] cell count [facility] method - Blood ID Date Data Source [id number] 02/28/2019 07:35:00 AM [facility] Value Range Interpretation Description Data Sup porting Code Source(s) Document(s ) Glucose 109 mg/dL [place] [Mass/volume Hospital ] in Serum or Plasma ID Date Data Source [id number] 02/28/2019 07:35:00 AM [facility] Value Range Interpretation Description Data Sup porting Code Source(s) Document(s ) Sodium 138 mmol/L [place] [Moles/volu Hospital me] in Serum or Plasma ID Date Data Source [id number] 02/28/2019 07:35:00 AM EST [place] [facility] Name Value Range Interpretation Description Data Sup porting Code Source(s) Document(s ) Potassium 3.6 [place] [Moles/volume mmol/L Hospital ] in Serum or Plasma ID Date Data Source [id number] 02/28/2019 07:35:00 AM EST [place] [facility] Name Value Range Interpretation Description Data Sup porting Code Source(s) Document(s ) Chloride 99 mmol/L [place] [Moles/volum Hospital e] in Serum or Plasma ID Date Data Source [id number] 02/28/2019 07:35:00 AM EST [place] [facility] Name Value Range Interpretation Description Data Sup porting Code Source(s) Document(s ) Carbon 27 mmol/L [place] dioxide, Hospital total [Moles/volu me] in Serum or Plasma ID Date Data Source [id number] 02/28/2019 07:35:00 AM [facility] Hospital Name Value Range Interpretation Code Description Data Jolene rce(s) Supporting Document(s ) Anion gap in 16 [place] Serum or Hospital Plasma ID Date Data Source [id number] 02/28/2019 07:35:00 AM [facility] Hospital Name Value Range Interpretation Description Data Sup porting Code Source(s) Document(s ) Urea 10 mg/dL [place] nitrogen Hospital [Mass/volume ] in Serum or Plasma ID Date Data Source [id number] 02/28/2019 07:35:00 AM EST [place] [facility] Name Value Range Interpretation Description Data Sup porting Code Source(s) Document(s ) Creatinine 0.7 mg/dL [place] [Mass/volume] Hospital in Serum or Plasma ID Date Data Source [id number] 02/28/2019 07:35:00 AM EST [place] [facility] Name Value Range Interpretation Code Description Data Jolene rce(s) Supporting Document(s ) Urea 14.3 [place] nitrogen/Cre Hospital atinine [Mass Ratio] in Serum or Plasma ID Date Data Source [id number] 02/28/2019 07:35:00 AM EST [place] [facility] Name Value Range Interpretation Description Data Sup porting Code Source(s) Document(s ) Calcium 8.8 mg/dL [place] [Mass/volume Hospital ] in Serum or Plasma ID Date Data Source [id number] 02/28/2019 07:35:00 AM EST Name Value Range Interpretation Description Data Sup porting Code Source(s) Document(s ) Protein 6.8 g/dL [place] [Mass/volume Hospital ] in Serum or Plasma ID Date Data Source [id number] 02/28/2019 07:35:00 AM [facility] Name Value Range Interpretation Description Data Sup porting Code Source(s) Document(s ) Albumin 4.5 g/dL [place] [Mass/volume Hospital ] in Serum or Plasma ID Date Data Source [id number] 02/28/2019 07:35:00 AM EST [place] [facility] Name Value Range Interpretation Code Description Data Jolene rce(s) Supporting Document(s ) Albumin/Glob 2.0 [place] ulin [Mass Hospital Ratio] in Serum or Plasma ID Date Data Source [id number] 02/28/2019 07:35:00 AM [facility] Hospital Name Value Range Interpretation Description Data Sup porting Code Source(s) Document(s ) Bilirubin.t 1.1 mg/dL [facility] [Mass/volum e] in Serum or Plasma ID Date Data Source [id number] 02/28/2019 07:35:00 AM [facility] Hospital Name Value Range Interpretation Description Data Sup porting Code Source(s) Document(s ) Alkaline 98 U/L [place] phosphatase Hospital [Enzymatic activity/volume ] in Serum or Plasma ID Date Data Source [id number] 02/28/2019 07:35:00 AM EST [place] [facility] Name Value Range Interpretation Description Data Sup porting Code Source(s) Document(s ) Alanine 145 U/L [place] aminotransferase [place] [Enzymatic Hospital activity/volume] in Serum or Plasma ID Date Data Source [id number] 02/28/2019 07:35:00 AM EST [place] [facility] Name Value Range Interpretation Description Data Sup porting Code Source(s) Document(s ) Aspartate 86 U/L [place] aminotransferase [place] [Enzymatic Hospital activity/volume] in Serum or Plasma ID Date Data Source [id number] 02/28/2019 07:35:00 AM [facility] Hospital Name Value Range Interpretation Description Data Sup porting Code Source(s) Document(s ) Magnesium 1.6 mg/dL [place] [Mass/volume] Hospital in Serum or Plasma ID Date Data Source [id number] 02/28/2019 07:35:00 AM [facility] Hospital Name Value Range Interpretation Description Data Sup porting Code Source(s) Document(s ) Phosphate 2.8 mg/dL [place] [Mass/volume] Hospital in Serum or Plasma ID Date Data Source [id number] 02/27/2019 11:16:00 AM [facility] Hospital Name Value Range Interpretation Description Data Sup porting Code Source(s) Document(s ) GLUCOSE RN Notified [facility] Hospital ID Date Data Source [id number] 02/27/2019 08:52:00 AM EST [place] [facility] Name Value Range Interpretation Code Description Data Supporting Source(s) Document(s ) NUCLEATED RBCS 0.0 % [place] (AUTO Hospital DIFF%)DIS ID Date Data Source [id number] 02/27/2019 08:52:00 AM [facility] Name Value Range Interpretation Description Data Sup porting Code Source(s) Document(s ) PT panel - 12.1 s [place] Platelet poor [facility] plasma by Coagulation assay ID Date Data Source [id number] 02/27/2019 08:52:00 AM [facility] THERAPEUTIC RANGE FOR STANDARD ORALANTIC OAGULANT THERAPY: 2.0-3.0THERAPEUTIC RANGE FOR HIGH DOSE ORALANTICOAGULANT THERAPY (MECHANICAL HEARTVALVE REPLACEMENT): 2.5-3.5 Name Value Range Interpretation Description Data Sup porting Code Source(s) Document(s ) INR in Platelet 1.1 [place] poor plasma by [facility] Coagulation assay ID Date Data Source [id number] 02/27/2019 08:52:00 AM [facility] THERAPEUTIC RANGES:UNFRACTIONATED HEPARI N THERAPY: 60-90 SECONDSARGATROBAN THERAPY: 49-99 SECONDS Name Value Range Interpretation Description Data Sup porting Code Source(s) Document(s ) aPTT in 31.8 s [place] Platelet poor [facility] plasma by Coagulation assay ID Date Data Source [id number] 02/27/2019 08:52:00 AM [facility] Name Value Range Interpretation Description Data Sup porting Code Source(s) Document(s ) Bilirubin.d 0.5 mg/dL [facility] [Mass/volum e] in Serum or Plasma ID Date Data Source [id number] 02/27/2019 08:52:00 AM [facility] Name Value Range Interpretation Code Description Data Jolene rce(s) Supporting Document(s ) Lipase 34 U/L [place] [Enzymatic Hospital activity/vo lume] in Serum or Plasma ID Date Data Source [id number] 02/27/2019 08:52:00 AM [facility] REFERENCE RANGES: NONE DETECTED <20 MG/DL NONE TO MILD EUPHORIA 20-49 MG/DL MILD EUPHORIA 50-99 MG/DL MODERATE EUPHORIA 100-149 MG/DL INTOXICATION 150-300 MG/DL Name Value Range Interpretation Description Data Sup porting Code Source(s) Document(s ) Ethanol < 20 [place] [Mass/volume mg/dL Hospital ] in Serum or Plasma ID Date Data Source [id number] 02/26/2019 07:51:00 PM [facility] TEST PERFORMED BY [employer] [facility] CHEMILUMINESCENCE METHOD. Name Value Range Interpretation Description Data Sup porting Code Source(s) Document(s ) Troponin 0.01 [place] I.cardiac ng/mL Hospital [Mass/volume ] in Serum or Plasma ID Date Data Source [id number] 02/26/2019 03:30:00 PM [facility] Name Value Range Interpretation Description Data Sup porting Code Source(s) Document(s ) Lactate 1.9 [place] [Moles/volum mmol/L Hospital e] in Serum or Plasma ID Date Data Source [id number] 02/26/2019 09:25:00 AM [facility] Name Value Range Interpretation Code Description Data Jolene rce(s) Supporting Document(s ) Color of YELLOW [place] Urine Hospital ID Date Data Source [id number] 02/26/2019 09:25:00 AM [facility] Name Value Range Interpretation Description Data Sup porting Code Source(s) Document(s ) Clarity in Urine CLEAR [place] by Refractometry Hospital automated ID Date Data Source [id number] 02/26/2019 09:25:00 AM [facility] Name Value Range Interpretation Code Description Data Supporting Source(s) Document(s ) Specific 1.013 [place] gravity of Hospital Urine by Test strip ID Date Data Source [id number] 02/26/2019 09:25:00 AM EST [place] [facility] Name Value Range Interpretation Code Description Data Jolene rce(s) Supporting Document(s ) pH of Urine 6.0 [place] by Test Hospital strip ID Date Data Source [id number] 02/26/2019 09:25:00 AM EST [place] [facility] Name Value Range Interpretation Code Description Data Jolene rce(s) Supporting Document(s ) Protein TRACE [place] [Presence] Hospital in Urine by Test strip ID Date Data Source [id number] 02/26/2019 09:25:00 AM [facility] Hospital Name Value Range Interpretation Description Data Sup porting Code Source(s) Document(s ) Glucose NEGATIVE [place] [Mass/volume Hospital ] in Urine by Test strip ID Date Data Source [id number] 02/26/2019 09:25:00 AM [facility] Hospital Name Value Range Interpretation Code Description Data Jolene rce(s) Supporting Document(s ) Ketones 1+ [place] [Mass/volume Hospital ] in Urine by Test strip ID Date Data Source [id number] 02/26/2019 09:25:00 AM EST [place] [facility] Name Value Range Interpretation Description Data Sup porting Code Source(s) Document(s ) Urobilinogen 1.0 [place] [Units/volume] mg/dL Hospital in Urine by Test strip ID Date Data Source [id number] 02/26/2019 09:25:00 AM EST [place] [facility] Name Value Range Interpretation Code Description Data Jolene rce(s) Supporting Document(s ) Bilirubin. NEGATIVE [place] total Hospital [Presence] in Urine by Test strip ID Date Data Source [id number] 02/26/2019 09:25:00 AM [facility] Name Value Range Interpretation Description Data Sup porting Code Source(s) Document(s ) Erythrocytes NEGATIVE [place] [#/volume] in Hospital Urine by Test strip ID Date Data Source [id number] 02/26/2019 09:25:00 AM [facility] Value Range Interpretation Description Data Sup porting Code Source(s) Document(s ) URINE NEGATIVE [place] NITRITES Hospital ID Date Data Source [id number] 02/26/2019 09:25:00 AM [facility] Value Range Interpretation Description Data Sup porting Code Source(s) Document(s ) Leukocyte NEGATIVE [place] esterase Hospital [Presence] in Urine by Test strip ID Date Data Source [id number] 02/26/2019 09:25:00 AM [facility] Name Value Range Interpretation Description Data Sup porting Code Source(s) Document(s ) Leukocytes NEGATIVE [place] [#/area] in /[HPF] Hospital Urine sediment by Microscopy high power field ID Date Data Source [id number] 02/26/2019 09:25:00 AM [facility] Value Range Interpretation Description Data Sup porting Code Source(s) Document(s ) Erythrocytes NEGATIVE [place] [#/area] in /[HPF] [place] Urine sediment Hospital by Microscopy high power field ID Date Data Source [id number] 02/26/2019 09:25:00 AM [facility] Value Range Interpretation Description Data Sup porting Code Source(s) Document(s ) Epithelial OCCASIONAL [place] cells.[facility] s [#/area] in Urine sediment by Microscopy high power field ID Date Data Source [id number] 04/22/2018 08:16:00 PM [facility] Name Value Range Interpretation Code Description Data Supporting Source(s) Document(s ) Ketones 1+ NEG URINE KETONES [place] [Mass/volume Hospital ] in Urine by Test strip ID Date Data Source [id number] 04/22/2018 08:16:00 PM [facility] Name Value Range Interpretation Description Data Sup porting Code Source(s) Document(s ) Urobilinogen 1.0 0.2-1.0 URINE [facility] [Units/volume] mg/dL UROBILINOGEN [place] in Urine by Hospital Test strip ID Date Data Source [id number] 04/22/2018 08:16:00 PM [facility] In addition to bilirubin, a positive res ult may be caused by metabolites of certain medications and b y atypically colored urine samples. If clinically indicated, correlate positive results with serum liver function tests. Name Value Range Interpretation Description Data Sup porting Code Source(s) Document(s ) Bilirubin POSITIVE NEG URINE BILIRUBIN [place] .total Hospital [Presence ] in Urine by Test strip ID Date Data Source [id number] 04/22/2018 08:16:00 PM [facility] Name Value Range Interpretation Description Data Sup porting Code Source(s) Document(s ) Erythrocytes TRACE NEG URINE BLOOD [place] [#/volume] in Hospital Urine by Test strip ID Date Data Source [id number] 04/22/2018 08:16:00 PM [facility] Name Value Range Interpretation Description Data Sup porting Code Source(s) Document(s ) Nitrite NEGATIVE NEG URINE NITRITES [place] [Presence] Hospital in Urine by Test strip ID Date Data Source [id number] 04/22/2018 08:16:00 PM [facility] Name Value Range Interpretation Description Data Sup porting Code Source(s) Document(s ) Leukocyte NEGATIVE NEG URINE [place] esterase LEUKOCYTES Hospital [Presence] in Urine by Test strip ID Date Data Source [id number] 04/22/2018 08:16:00 PM [facility] Name Value Range Interpretation Description Data Sup porting Code Source(s) Document(s ) Leukocytes 3-5 0-3 URINE WBC/HPF [place] [#/area] in /[HPF] Hospital Urine sediment by Microscopy high power field ID Date Data Source [id number] 04/22/2018 08:16:00 PM [facility] Value Range Interpretation Description Data Sup porting Code Source(s) Document(s ) Erythrocytes 3-5 0-3 URINE RBC/HPF [place] [#/area] in /[HPF] Hospital Urine sediment by Microscopy high power field ID Date Data Source [id number] 04/22/2018 08:16:00 PM [facility] Value Range Interpretation Description Data Sup porting Code Source(s) Document(s ) Bacteria OCCASIONAL URINE BACTERIA [facility] [#/area] in [place] Urine Hospital sediment by Microscopy high power field ID Date Data Source [id number] 04/22/2018 08:16:00 PM [facility] Value Range Interpretation Description Data Sup porting Code Source(s) Document(s ) Epithelial OCCASIONAL URINE [facility] cells.squamou EPITHELIAL [place] s [#/area] in CELLS Hospital Urine sediment by Microscopy high power field ID Date Data Source [id number] 04/22/2018 08:16:00 PM [facility] Value Range Interpretation Description Data Sup porting Code Source(s) Document(s ) Mucus PRESENT URINE MUCUS [place] [Presence] in Hospital Urine sediment by Light microscopy ID Date Data Source [id number] 04/22/2018 08:16:00 PM [facility] Value Range Interpretation Code Description Data Supporting Source(s) Document(s ) Color of DK YELLOW URINE COLOR [place] Urine Hospital ID Date Data Source [id number] 04/22/2018 08:16:00 PM [facility] Value Range Interpretation Description Data Sup porting Code Source(s) Document(s ) Clarity in Urine CLEAR URINE CLARITY [facility] ins by Refractometry Hospital automated ID Date Data Source [id number] 04/22/2018 08:16:00 PM [facility] Value Range Interpretation Description Data Sup porting Code Source(s) Document(s ) Specific 1.032 1.003-1.0 URINE SPECIFIC [place] gravity of 35 [facility] Urine by Test strip ID Date Data Source [id number] 04/22/2018 08:16:00 PM [facility] Value Range Interpretation Code Description Data Jolene rce(s) Supporting Document(s ) pH of 7.0 5.0-8.0 URINE PH [place] Urine by [facility] Test strip ID Date Data Source [id number] 04/22/2018 08:16:00 PM [facility] Value Range Interpretation Code Description Data Supporting Source(s) Document(s ) Protein 1+ NEG URINE PROTEIN [place] [[facility] in Urine by Test strip ID Date Data Source [id number] 04/22/2018 08:16:00 PM [facility] Value Range Interpretation Description Data Sup porting Code Source(s) Document(s ) Glucose NEGATIVE NEG URINE GLUCOSE [place] [[facility] e] in Urine by Test strip ID Date Data Source [id number] 04/22/2018 06:59:00 PM [facility] Value Range Interpretation Description Data Sup porting Code Source(s) Document(s ) Leukocytes 7.4 4.0-10.0 WHITE BLOOD [place] [#/volume] in 10*3/uL CELL COUNT [facility] Blood by Automated count ID Date Data Source [id number] 04/22/2018 06:59:00 PM [facility] Name Value Range Interpretation Description Data Sup porting Code Source(s) Document(s ) Erythrocytes 4.94 4.50-5.9 RED BLOOD [place] [#/volume] in 10*6/uL 0 CELL COUNT [place] Blood by Hospital Automated count ID Date Data Source [id number] 04/22/2018 06:59:00 PM [facility] Value Range Interpretation Description Data Sup porting Code Source(s) Document(s ) Hemoglobin 16.2 13.6-17. HEMOGLOBIN [place] [Mass/volume] g/dL 0 Hospital in Blood ID Date Data Source [id number] 04/22/2018 06:59:00 PM [facility] Value Range Interpretation Description Data Sup porting Code Source(s) Document(s ) Hematocrit 44.9 % 42.0-50.0 HEMATOCRIT [place] [Volume Hospital Fraction] of Blood by Automated count ID Date Data Source [id number] 04/22/2018 06:59:00 PM [facility] Name Value Range Interpretation Description Data Sup porting Code Source(s) Document(s ) Erythrocyte 90.9 fL 80.0-96. MEAN [place] mean 0 CORPUSCULAR [place] corpuscular VOLUME Hospital volume [Entitic volume] by Automated count ID Date Data Source [id number] 04/22/2018 06:59:00 PM [facility] Value Range Interpretation Description Data Sup porting Code Source(s) Document(s ) Erythrocyte 32.8 pg 27.0-34. MEAN [place] mean 0 CORPUSCULAR [place] corpuscular HEMOGLOBIN Hospital hemoglobin [Entitic mass] by Automated count ID Date Data Source [id number] 04/22/2018 06:59:00 PM [facility] Value Range Interpretation Description Data Sup porting Code Source(s) Document(s ) Erythrocyte mean 36.1 31.0-36. Above high MEAN [place] corpuscular g/dL 0 normal CORPUSCULAR [place] hemoglobin HGB CONCEN Hospital concentration [Mass/volume] by Automated count ID Date Data Source [id number] 04/22/2018 06:59:00 PM [facility] Name Value Range Interpretation Description Data Sup porting Code Source(s) Document(s ) Erythrocyte 12.9 % 11.5-14. RED CELL [place] distribution 5 DISTRIBUTION [place] width [Ratio] WIDTH Hospital by Automated count ID Date Data Source [id number] 04/22/2018 06:59:00 PM [facility] Name Value Range Interpretation Description Data Sup porting Code Source(s) Document(s ) Platelets 354 150-400 PLATELET COUNT [place] [#/volume] 10*3/uL Hospital in Blood by Automated count ID Date Data Source [id number] 04/22/2018 06:59:00 PM [facility] Name Value Range Interpretation Description Data Sup porting Code Source(s) Document(s ) Platelet mean 8.3 fL 9.6-12.8 Below low normal MEAN PLATELET [place] volume VOLUME Hospital [Entitic volume] in Blood by Automated count ID Date Data Source [id number] 04/22/2018 06:59:00 PM [facility] Name Value Range Interpretation Description Data Sup porting Code Source(s) Document(s ) Neutrophils/1 71.6 % 40.0-75. NEUTROPHILS [place] 00 leukocytes 0 (AUTO DIFF %) Hospital in Blood by Automated count ID Date Data Source [id number] 04/22/2018 06:59:00 PM [facility] Name Value Range Interpretation Description Data Sup porting Code Source(s) Document(s ) Lymphocytes/1 19.2 % 20.0-48. Below low normal LYMPHOCYTES [place] 00 leukocytes 0 (AUTO DIFF %) Hospital in Blood by Automated count ID Date Data Source [id number] 04/22/2018 06:59:00 PM [facility] Name Value Range Interpretation Description Data Sup porting Code Source(s) Document(s ) Monocytes/100 8.1 % 4.0-12.0 MONOCYTES [place] leukocytes in (AUTO DIFF %) Hospital Blood by Automated count ID Date Data Source [id number] 04/22/2018 06:59:00 PM [facility] Name Value Range Interpretation Description Data Sup porting Code Source(s) Document(s ) Eosinophils/10 0.4 % 0-6.0 EOSINOPHILS [place] 0 leukocytes (AUTO DIFF %) Hospital in Blood by Automated count ID Date Data Source [id number] 04/22/2018 06:59:00 PM [facility] Value Range Interpretation Description Data Sup porting Code Source(s) Document(s ) Basophils/100 0.4 % 0-1.0 BASOPHILS (AUTO [place] leukocytes in DIFF %) Hospital Blood by Automated count ID Date Data Source [id number] 04/22/2018 06:59:00 PM [facility] Value Range Interpretation Description Data Sup porting Code Source(s) Document(s ) Immature 0.3 % 0-0.5 IMM GRANS (AUTO [place] granulocytes/1 DIFF%) Hospital 00 leukocytes in Blood by Automated count ID Date Data Source [id number] 04/22/2018 06:59:00 PM [facility] Name Value Range Interpretation Description Data Sup porting Code Source(s) Document(s ) Nucleated 0.0 % 0-0.2 NUCLEATED RBCS [place] erythrocytes/1 (AUTO DIFF%) Hospital 00 leukocytes [Ratio] in Blood by Automated count ID Date Data Source [id number] 04/22/2018 06:59:00 PM [facility] Name Value Range Interpretation Description Data Sup porting Code Source(s) Document(s ) Neutrophils 5.33 1.5-6.6 NEUTROPHILS [place] [#/volume] in 10*3/uL (AUTO DIFF #) [place] Blood by Hospital Automated count ID Date Data Source [id number] 04/22/2018 06:59:00 PM [facility] Value Range Interpretation Description Data Sup porting Code Source(s) Document(s ) Lymphocytes 1.43 1.2-3.5 LYMPHOCYTES [place] [#/volume] in 10*3/uL (AUTO DIFF #) [place] Blood by Hospital Automated count ID Date Data Source [id number] 04/22/2018 06:59:00 PM [facility] Value Range Interpretation Description Data Sup porting Code Source(s) Document(s ) Monocytes 0.60 0.0-1.2 MONOCYTES [place] [#/volume] 10*3/uL (AUTO DIFF #) Hospital in Blood by Automated count ID Date Data Source [id number] 04/22/2018 06:59:00 PM [facility] Value Range Interpretation Description Data Sup porting Code Source(s) Document(s ) Eosinophils 0.03 0.0-0.6 EOSINOPHILS [place] [#/volume] in 10*3/uL (AUTO DIFF #) [place] Blood by Hospital Automated count ID Date Data Source [id number] 04/22/2018 06:59:00 PM [facility] Value Range Interpretation Description Data Sup porting Code Source(s) Document(s ) Basophils 0.03 0.0-0.1 BASOPHILS [place] [#/volume] 10*3/uL (AUTO DIFF #) Hospital in Blood by Automated count ID Date Data Source [id number] 04/22/2018 06:59:00 PM [facility] Value Range Interpretation Description Data Sup porting Code Source(s) Document(s ) Immature 0.02 0-0.3 IMM GRANS [place] granulocytes 10*3/uL (AUTO DIFF#) Hospital [#/volume] in Blood by Automated count ID Date Data Source [id number] 04/22/2018 06:59:00 PM [facility] Value Range Interpretation Description Data Sup porting Code Source(s) Document(s ) Differential AUTOMATED DIFF TYPE [place] cell count [facility] method - Blood ID Date Data Source [id number] 04/22/2018 06:59:00 PM [facility] Value Range Interpretation Code Description Data Jolene rce(s) Supporting Document(s ) 0.0 % 0-0.2 NUCLEATED RBCS [place] (AUTO DIFF%)DIS Hospital ID Date Data Source [id number] 04/22/2018 06:59:00 PM [facility] Value Range Interpretation Description Data Sup porting Code Source(s) Document(s ) Glucose 128 mg/dL 74-106 Above high normal GLUCOSE [place] [[facility] e] in Serum or Plasma ID Date Data Source [id number] 04/22/2018 06:59:00 PM [facility] Value Range Interpretation Description Data Sup porting Code Source(s) Document(s ) Sodium 138 136-145 SODIUM [place] [Moles/vol mmol/L Hospital ume] in Serum or Plasma ID Date Data Source [id number] 04/22/2018 06:59:00 PM [facility] Name Value Range Interpretation Description Data Sup porting Code Source(s) Document(s ) Potassium 3.6 3.5-5.3 POTASSIUM [place] [Moles/volume mmol/L Hospital ] in Serum or Plasma ID Date Data Source [id number] 04/22/2018 06:59:00 PM [facility] Name Value Range Interpretation Description Data Sup porting Code Source(s) Document(s ) Chloride 96 mmol/L 98-107 Below low normal CHLORIDE [place] [Moles/volum Hospital e] in Serum or Plasma ID Date Data Source [id number] 04/22/2018 06:59:00 PM [facility] Name Value Range Interpretation Description Data Sup porting Code Source(s) Document(s ) Carbon 32 mmol/L 23-29 Above high normal CARBON DIOXIDE [place] dioxide, Hospital total [Moles/vol ume] in Serum or Plasma ID Date Data Source [id number] 04/22/2018 06:59:00 PM [facility] Name Value Range Interpretation Code Description Data Jolene rce(s) Supporting Document(s ) Anion gap in 13 6-18 ANION GAP [place] Serum or [facility] Plasma ID Date Data Source [id number] 04/22/2018 06:59:00 PM [facility] Name Value Range Interpretation Description Data Sup porting Code Source(s) Document(s ) Urea 15 mg/dL 6-20 BLOOD UREA [place] nitrogen NITROGEN Hospital [Mass/volume ] in Serum or Plasma ID Date Data Source [id number] 04/22/2018 06:59:00 PM [facility] Name Value Range Interpretation Description Data Sup porting Code Source(s) Document(s ) Creatinine 0.8 0.9-1.3 Below low normal CREATININE [facility] [Mass/volume] mg/dL Hospital in Serum or Plasma ID Date Data Source [id number] 04/22/2018 06:59:00 PM [facility] Name Value Range Interpretation Description Data Sup porting Code Source(s) Document(s ) Urea 18.5 6.0-20.0 BUN/CREATININE [place] nitrogen/C RATIO Hospital reatinine [Mass Ratio] in Serum or Plasma ID Date Data Source [id number] 04/22/2018 06:59:00 PM [facility] Name Value Range Interpretation Description Data Sup porting Code Source(s) Document(s ) Calcium 9.3 mg/dL 8.3-10.6 CALCIUM [place] [[facility] e] in Serum or Plasma ID Date Data Source [id number] 04/22/2018 06:59:00 PM [facility] Name Value Range Interpretation Description Data Sup porting Code Source(s) Document(s ) Protein 7.7 g/dL 5.7-8.2 TOTAL PROTEIN [place] [[facility]] in Serum or Plasma ID Date Data Source [id number] 04/22/2018 06:59:00 PM [facility] Name Value Range Interpretation Description Data Sup porting Code Source(s) Document(s ) Albumin 4.7 g/dL 3.4-4.8 ALBUMIN [place] [[facility]] in Serum or Plasma ID Date Data Source [id number] 04/22/2018 06:59:00 PM [facility] Name Value Range Interpretation Description Data Sup porting Code Source(s) Document(s ) Albumin/Gl 1.6 1.0-2.1 ALBUMIN/GLOBULI [place] obulin N RATIO Hospital [Mass Ratio] in Serum or Plasma ID Date Data Source [id number] 04/22/2018 06:59:00 PM [facility] Name Value Range Interpretation Description Data Sup porting Code Source(s) Document(s ) Bilirubin. 0.7 mg/dL 0.3-1.2 TOTAL [place] total BILIRUBIN Hospital [Mass/volu me] in Serum or Plasma ID Date Data Source [id number] 04/22/2018 06:59:00 PM [facility] Name Value Range Interpretation Description Data Sup porting Code Source(s) Document(s ) Alkaline 74 U/L 41-147 ALKALINE [place] phosphatase PHOSPHATASE Hospital [Enzymatic activity/volum e] in Serum or Plasma ID Date Data Source [id number] 04/22/2018 06:59:00 PM [facility] Name Value Range Interpretation Description Data Sup porting Code Source(s) Document(s ) Alanine 33 U/L 10-40 ALANINE [place] aminotransferase TRANSFERASE [place] [Enzymatic Hospital activity/volume] in Serum or Plasma ID Date Data Source [id number] 04/22/2018 06:59:00 PM [facility] Name Value Range Interpretation Description Data Sup porting Code Source(s) Document(s ) Aspartate 30 U/L 10-48 AST [place] aminotransferase [place] [Enzymatic Hospital activity/volume] in Serum or Plasma ID Date Data Source [id number] 04/22/2018 06:59:00 PM [facility] Name Value Range Interpretation Code Description Data Jolene rce(s) Supporting Document(s ) Lipase 27 U/L 12-53 LIPASE [place] [Enzymatic Hospital activity/vo lume] in Serum or Plasma ID Date Data Source [id number] 04/22/2018 06:59:00 PM [facility] THERAPEUTIC RANGE: 10.0-30.0 UG/ML TOXIC RANGE: 4 HRS AFTER INGESTION >150 UG/ML 12 HRS AFTER INGESTION >35 UG/ML Name Value Range Interpretation Description Data Sup porting Code Source(s) Document(s ) < 10.0 10.0-30.0 Below low normal ACETAMINOPHEN [place] ug/mL Hospital ID Date Data Source [id number] 04/22/2018 06:59:00 PM [facility] REFERENCE RANGES: ANALGESIC: 0.0 - 10.0 MG/DL . ARTHRITIC THERAPY: 15.0 - 30.0 MG/DL . Name Value Range Interpretation Description Data Sup porting Code Source(s) Document(s ) Salicylates < 3.0 SALICYLATE [place] [Mass/volume] mg/dL Hospital in Serum or Plasma ID Date Data Source [id number] 04/22/2018 06:59:00 PM [facility] TEST RESULT IS A TOTAL TRICYCLIC VALUE. TRICYCLIC ANTIDEPRESSANT REFERENCE RANGE : AMITRIPTYLINE AND METABOLITE (NORTRIPT YLINE) TOTAL THERAPEUTIC: 75 - 225 NG/ML. TOTAL TOXIC: > 400 NG/ML. NORTRIPTYLINE ONLY TOTAL THERAPEUTIC: 50 - 150 NG/ML. TOTAL TOXIC: > 400 NG/ML. IMIPRAMINE AND METABOLITE (DESIPRAMINE ) TOTAL THERAPEUTIC: 125 - 175 NG/ML. TOTAL TOXIC: > 400 NG/ML. Name Value Range Interpretation Description Data Sup porting Code Source(s) Document(s ) < 80 ng/mL TRICYCLIC [place] ANTIDEPRESSANT Hospital ID Date Data Source [id number] 04/22/2018 06:59:00 PM [facility] REFERENCE RANGES:
NONE DETECTED <20 MG/DL
NONE TO MILD EUPHORIA 20-49 MG/DL
MILD E UPHORIA 50-99 MG/DL
MODERATE EUPHORIA 100-149 MG/DL
INTOXICATION 150-300 MG/DL Name Value Range Interpretation Description Data Sup porting Code Source(s) Document(s ) Ethanol < 20 0-20 ALCOHOL ETHANOL [place] [Mass/volum mg/dL Hospital e] in Serum or Plasma ID Date Data Source [id number] 05/02/2017 10:26:00 AM EST [facility] ([facility]) Name Value Range Interpretation Description Data Sup porting Code Source(s) Document(s ) Glucose 171 Above high Glucose, [facility] [Mass/volume] in mg/dL normal Serum ([place] Serum or [facility]) Calcium 9.4 Calcium, [facility] [Mass/volume] in mg/dL Serum ([facility]) Albumin 4.9 Albumin, [facility] [Mass/volume] in g/dL Serum ([facility]) Urea nitrogen 18 BUN [facility] [Mass/volume] in mg/dL ([facility]) Protein 7.7 Protein, [facility] [Mass/volume] in g/dL Total, Serum ([facility] Serum or [facility]) Aspartate 48 IU/L Above high AST (SGOT) [place] aminotransferase normal ([place] [Enzymatic [facility] activity/volume] [facility] in Serum or Plasma Center) Bilirubin.total 1.0 Bilirubin, [facility] [Mass/volume] in mg/dL Total ([facility] Serum or Plasma [facility]) Alkaline 96 IU/L Alkaline [facility] phosphatase Phosphatase, ([place] [Enzymatic S [facility] activity/volume] [facility] in Serum or Plasma [place]) Chloride 97 Chloride, [facility] [Moles/volume] in mmol/L Serum ([facility] Serum or [facility]) Potassium 3.5 Potassium, [facility] [Moles/volume] in mmol/L Serum ([facility] or [facility]) Sodium 139 Sodium, Serum [facility] [Moles/volume] in mmol/L ([facility] or [facility]) Carbon dioxide, 22 Carbon [facility] total mmol/L Dioxide, ([place] [Moles/volume] in Total [facility] Serum or [facility]) Creatinine 0.88 Creatinine, [facility] [Mass/volume] in mg/dL Serum ([facility] Serum or [facility]) Alanine 117 Above high ALT (SGPT) [facility] aminotransferase IU/L normal ([place] [Enzymatic [facility] activity/volume] [facility] in Serum or Plasma [place]) Albumin/Globulin 1.8 A/G Ratio [facility] [Mass Ratio] in ([facility] or [facility]) Urea 20 BUN/Creatinin [facility] nitrogen/Creatinin e Ratio ([facility] on e [Mass Ratio] in [facility] Serum or [facility]) Globulin 2.8 Globulin, [place] [Mass/volume] in g/dL Total ([facility] Serum by [facility]) eGFR If Africn Am 122 eGFR If [facility] mL/min/ Africn Am ([address]) eGFR If NonAfricn 106 eGFR If [facility] Am mL/min/ NonAfricn Am ([address]) ID Date Data Source [id number] 05/02/2017 10:26:00 AM EST [facility] ([facility]) Name Value Range Interpretation Description Data Source(s ) Supporting Code Document(s ) Cholesterol 242 Above high Cholesterol, [facility] [Mass/volume] mg/dL normal Total ([facility] in Serum or [facility] Plasma [facility]) Triglyceride 104 Triglycerides [facility] [Mass/volume] mg/dL ([facility] in Serum or [facility] Plasma [facility]) Cholesterol in 21 VLDL [facility] VLDL mg/dL Cholesterol Syd ([facility] [Mass/volume] [facility] in Serum or [facility] [place]) Plasma by calculation Cholesterol in 53 HDL Cholesterol [facility] HDL mg/dL ([facility] [Mass/volume] [facility] in Serum or [facility] [place]) Plasma Laboratory N/A Comment: [facility] comment [Text] ([facility] in Report [facility]) Cholesterol in 168 Above high LDL Cholesterol [facility] LDL mg/dL normal Calc ([facility] [Mass/volume] [facility] in Serum or [facility]) Plasma by calculation ID Date Data Source [id number]/02/2017 10:26:00 AM EST [place] ([facility]) Name Value Range Interpretation Description Data Source(s ) Supporting Code Document(s ) Neisseria Negative Neisseria [facility] gonorrhoeae gonorrhoeae, ([place] rRNA [Presence] CARA [facility] in [facility]) specimen by Probe and target amplification method Chlamydia Negative Chlamydia [place] trachomatis trachomatis, ([place] rRNA [Presence] CARA [facility] in [facility]) specimen by Probe and target amplification method ID Date Data Source [id number]/02/[id number] 10:26:00 AM EST [place] ([facility]) Name Value Range Interpretation Description Data Source(s ) Supporting Code Document(s ) Hemoglobin 8.5 % Above high normal Hemoglobin A1c GREEN AY ([place] A1c/Hemoglobi Joe n.total in [facility] Blood [facility]) Note: Pre-diabetes: 5.7 - 6.4 Diabetes: >6.4 Glycemic control for adults with diabetes: <7.0 ID Date Data Source [id number]/[id number] 10:26:00 AM EST [place] ([facility]) Name Value Range Interpretation Description Data Source(s ) Supporting Code Document(s ) Prostate 1.1 Prostate [facility] ([place] specific Ag ng/mL Specific Ag, [facility] [Mass/volum Serum Neighborhood e] in [facility]) or Plasma Note: [employer] ECLIA methodology.According to the [place] [employer], Serum PSA shoulddecrease and remain at undetec table levels after radicalprostatectomy. The AUA defines biochemical recurrence as an initialPSA value 0.2 ng/mL or greater followed by a subsequent confirmatoryPSA value 0.2 ng/mL or greater.Values obtained with different assay methods or kits can not be usedinterchangeably. Results cannot be interpreted as absolute evidenceof the p resence or absence of malignant disease. ID Date Data Source [id number]/02/2017 10:26:00 AM EST [facility] ([facility]) Name Value Range Interpretation Description Data Source(s ) Supporting Code Document(s ) HIV 1+2 Non HIV Screen [place] Ab+HIV1 p24 Reactive 4th ([facility] Ag [Presence] Generation [facility] in Serum or wRfx [facility]) Plasma by Immunoassay ID Date Data Source [id number]/02/2017 10:26:00 AM EST [facility] (Any [facility]) Name Value Range Interpretation Description Data Source(s ) Supporting Code Document(s ) Ferritin 525 Above high normal Ferritin, [place] ([place] [Mass/volum ng/mL Serum Joe e] in Serum [facility] or [facility]) Procedure Social History Code Duration Value Status Description Data Source(s ) Smoking 05/22/2019 Never smoked completed Never smoked [facility] ( [facility] 11:13:57 AM EST tobacco tobacco (finding) Ve rnon (finding) [facility]) Smoking 02/26/2019 Current some completed Current some day [place] 05:08:00 PM EST day smoker smoker Hospital Smoking 04/11/2017 Ex-smoker completed Ex-smoker [place] (Njun t 04:15:33 PM EST (finding) (finding) [facility]) Smoking Unknown if ever completed Unknown if ever [facility] [place] smoked smoked Hospital Smoking Unknown if ever completed Unknown if ever [facility] [place] smoked smoked Hospital Smoking Unknown if ever completed Unknown if ever [facility] [place] smoked smoked Hospital Assertion Current drinker completed Current drinker GEOVANNA MCCARTNEY ([facility] of alcohol of alcohol [place] (finding) (finding) [facility]) Assertion Smoker completed Smoker (finding) [facility] ([facility] (finding) [facility]) Assertion Exercise completed Exercise history MAGALI ([facility] history finding finding (finding) Ve rnon (finding) [facility]) Assertion Tobacco user completed Tobacco user MAGALI ( [facility] (finding) (finding) [facility]) Assertion Caffeine user completed Caffeine user MAGALI ([facility] (finding) (finding) [facility]) Assertion Finding of life completed Finding of life GREE NWAY ([facility] event (finding) event (finding) [place] on [facility]) Assertion Physical completed Physical handicap GREENWA Y ([facility] handicap (finding) [place] ([facility]) Assertion Finding of completed Finding of MAGALI (Moun t activity of activity of daily Joe daily living living (finding) [facility] [place] (finding) [facility] [place]) Assertion Finding completed Finding relating MAGALI ([facility] relating to to drug misuse Joe drug misuse behavior [facility] ([facility]) [facility]) (finding) Assertion social history completed MAGALI ( [facility] unchanged [facility]) Smoking Unknown if ever completed Unknown if ever [place] smoked smoked Hospital Assertion Caffeine user completed Caffeine user MAGALI ([facility] (finding) (finding) [facility]) Assertion Smoker completed Smoker (finding) MAGALI ([facility] ([facility]) [facility]) Assertion Exercise completed Exercise history MAGALI ([facility] history finding finding (finding) Ve [place] ([facility]) [facility]) Assertion Finding of life completed Finding of life GREE NWAY ([facility] event (finding) event (finding) [place] [facility]) Assertion Physical completed Physical handicap GREENWA Y ([facility] handicap (finding) [place] ([facility]) [facility]) Assertion Finding of completed Finding of MAGALI (Moun t activity of activity of daily [place] daily living living (finding) [facility] [place] (finding) [facility]) Assertion Current drinker completed Current drinker GREE NWAY ([facility] of alcohol of alcohol Joe (finding) ([facility]) [facility]) Assertion Finding completed Finding relating MAGALI ([facility] relating to to drug misuse [place] drug misuse behavior [facility] ([facility]) [facility]) (finding) Assertion social history completed MAGALI ( [facility] unchanged [facility]) Assertion Tobacco user completed Tobacco user MAGALI ( [facility] (finding) (finding) [facility]) Assertion Finding of completed Finding of MAGALI (Moun t alcohol intake alcohol intake Joe (finding) ([facility]) [facility]) Assertion Smokes tobacco completed Smokes tobacco GREEN AY ([facility] daily (finding) daily (finding) [facility]) Assertion Single current completed Single current GREENW AY ([facility] sexual partner sexual partner [place] ([facility]) ([facility]) Assertion Exercises completed Exercises MAGALI (Moun t regularly regularly [place] ([facility]) ([facility]) Assertion sexual history completed MAGALI ( [facility]) Assertion Sexually active completed Sexually active GREE NWAY ([facility] (finding) ([facility]) [facility]) Assertion Oral hygiene completed Oral hygiene MAGALI ( [facility] finding finding (finding) [place] ([facility]) [facility]) Assertion Dietary finding completed Dietary finding GREE NWAY ([facility] (finding) ([facility]) [facility]) Smoking Never Smoker completed Never Smoker eCW2 ([facility]) Vital Signs ID Date Data Source UNK Name Value Range Interpretation Code Description Data Source(s) Diastolic blood 82 mm[Hg] 82 mm[Hg] [facility] Systolic blood 133 mm[Hg] 133 mm[Hg] [facility] Respiratory rate 18 /min 18 /min [facility] Heart rate 89 /min 89 /min Body temperature 37.16498 37.22908 Eugenia [facility] Body temperature 98.7 [degF] 98.7 [degF] Body mass index 23.3 kg/m2 23.3 kg/m2 [facility] (BMI) [Ratio] Hospital Body weight 140 [lb_av] 140 [lb_av] [facility] Diastolic blood 74 mm[Hg] 74 mm[Hg] White [facility] pressure Hospital Systolic blood 113 mm[Hg] 113 mm[Hg] [facility] Respiratory rate 18 /min 18 /min [facility] Heart rate 59 /min 59 /min Body temperature 36.43400 36.38293 Eugenia [facility] Body temperature 97.8 [degF] 97.8 [degF] Body mass index 24.0 kg/m2 24.0 kg/m2 [facility] (BMI) [Ratio] Hospital Body weight 147.31 147.31 [lb_av] [facility] [lb_av] Hospital Diastolic blood 107 mm[Hg] 107 mm[Hg] [facility] Systolic blood 146 mm[Hg] 146 mm[Hg] [facility] Respiratory rate 18 /min 18 /min [facility] Heart rate 102 /min 102 /min Body temperature 36.90942 36.44988 Eugenia [facility] Body temperature 98.4 [degF] 98.4 [degF] Body mass index 28.0 kg/m2 28.0 kg/m2 [facility] (BMI) [Ratio] Hospital Body weight 155.32 155.32 [lb_av] [facility] [lb_av] Hospital Body temperature 98.2 [degF] 98.2 [degF] eCW2 ( [facility] Body weight 143 [lb_av] 143 [lb_av] eCW2 ([facility]) Deprecated Oxygen 95 % 95 % eCW2 (F orm saturation in Medical No ter & Capillary blood Urgent Ca re) by Oximetry Respiratory rate 16 /min 16 /min eCW2 ([facility]) Heart rate 103 /min 103 /min eCW2 ([facility]) Systolic blood 152 mm[Hg] 152 mm[Hg] eCW2 (Form [facility]) Diastolic blood 90 mm[Hg] 90 mm[Hg] eCW2 (For m pressure [facility]) Body height 65 [in_us] 65 [in_us] MAGALI ([facility]) routine eye follow up PhenX - pain, abdominal - type and 0 0 MAGALI ([facility]) routine eye follow up Systolic blood pressure 110 mm[Hg] 110 mm[Hg] G REENWAY ([facility]) PHYSICAL Diastolic blood pressure 79 mm[Hg] 79 mm[Hg] MAGALI ([facility]) PHYSICAL Heart rate 77 /min 77 /min MAGALI ([facility]) PHYSICAL Heart rate rhythm 1 1 GREENWA Y ([facility]) PHYSICAL Body temperature 97.8 [degF] 97.8 [degF] GREENW AY ([facility]) PHYSICAL Body height 65 [in_us] 65 [in_us] MAGALI ([facility]) PHYSICAL Body weight 142 [lb_av] 142 [lb_av] MAGALI ([facility]) PHYSICAL Body mass index (BMI) 23.6 kg/m2 23.6 kg/m2 GRE ENWAY ([place] [[facility]] [facility]) PHYSICAL Body surface area Derived from 1.71 m2 1.71 m2 MAGALI ([facility]) PHYSICAL PhenX - pain, abdominal - type and 3 3 MAGALI ([facility]) PHYSICAL Body temperature 98.0 [degF] 98.0 [degF] Body temperature 36.30589 Eugenia 36.21016 Eugenia [facility] Heart rate 79 /min 79 /min [facility] ospital Respiratory rate 16 /min 16 /min [facility] Systolic blood pressure 131 mm[Hg] 131 mm[Hg] [facility] Diastolic blood pressure 90 mm[Hg] 90 mm[Hg] Body weight 140.30 [lb_av] 140.30 [lb_av] Body mass index (BMI) 23.0 kg/m2 23.0 kg/m2 i [facility] [Ratio] Systolic blood pressure 128 mm[Hg] 128 mm[Hg] G REENWAY ([facility]) complete physical exam Diastolic blood pressure 87 mm[Hg] 87 mm[Hg] MAGALI ([facility]) complete physical exam Heart rate 74 /min 74 /min MAGALI ([facility]) complete physical exam Heart rate rhythm 1 1 GREENWA Y ([facility]) complete physical exam Body temperature 98 [degF] 98 [degF] MAGALI ([facility]) complete physical exam Body height 65 [in_us] 65 [in_us] MAGALI ([facility]) complete physical exam Body weight 139 [lb_av] 139 [lb_av] MAGALI ([facility]) complete physical exam Body mass index (BMI) 23.1 kg/m2 23.1 kg/m2 GRE ENWAY ([place] [Ratio] [facility]) complete physical exam Body surface area Derived from 1.69 m2 1.69 m2 MAGALI ([facility]) complete physical exam PhenX - pain, abdominal - type and 0 0 MAGALI ([facility]) complete physical exam Systolic blood pressure 143 mm[Hg] 143 mm[Hg] G REENWAY ([facility]) LAB RESULTS Diastolic blood pressure 101 mm[Hg] 101 mm[Hg] MAGALI ([facility]) LAB RESULTS Heart rate 0.76 /min 0.76 /min MAGALI ([facility]) LAB RESULTS Heart rate rhythm 1 1 ([facility]) LAB RESULTS Body temperature 97.8 [degF] 97.8 [degF] GREEN AY ([facility]) LAB RESULTS Body height 65 [in_us] 65 [in_us] MAGALI ([facility]) LAB RESULTS Body weight 160 [lb_av] 160 [lb_av] MAGALI ([facility]) LAB RESULTS Body mass index (BMI) 26.6 kg/m2 26.6 kg/m2 GRE ENWAY ([place] [facility]) LAB RESULTS Body surface area Derived from 1.80 m2 1.80 m2 MAGALI ([facility]) LAB RESULTS PhenX - pain, abdominal - type and 0 0 MAGALI ([facility]) LAB RESULTS Systolic blood pressure 134 mm[Hg] 134 mm[Hg] G REENWAY ([facility]) physical Diastolic blood pressure 94 mm[Hg] 94 mm[Hg] MAGALI ([facility]) physical Heart rate 86 /min 86 /min MAGALI ([facility]) physical Heart rate rhythm 1 1 ([facility]) physical Body temperature 98 [degF] 98 [degF] MAGALI ([facility]) physical Body height 65 [in_us] 65 [in_us] MAGALI ([facility]) physical Body weight 159 [lb_av] 159 [lb_av] MAGALI ([facility]) physical Body mass index (BMI) 26.5 kg/m2 26.5 kg/m2 GRE ENWAY ([place] [facility]) physical Body surface area Derived from 1.79 m2 1.79 m2 MAGALI ([facility] formula [facility]) physical PhenX - pain, abdominal - type and 0 0 BOLCKOW ([facility] intensity protocol [facility]) physical Patient Treatment Plan of Care Planned Activity Planned Date Details Description Data Source (s) Tobramycin 3 MG/ML 06/26/2019 eCW2 (For m Medical Ophthalmic Solution 12:00:00 AM [facility] r & Urgent [facility]) Hydrochlorothiazide 25 MG / 05/24/2019 [place] ([facility] Losartan Potassium 100 MG 12:00:00 AM [facility] Oral Tablet [facility]) Metformin hydrochloride 1000 03/13/2018 [place] ([facility] MG Oral Tablet 12:00:00 AM [facility]) atorvastatin 10 MG Oral 03/13/2018 GREE NWAY ([facility] Tablet 12:00:00 AM [facility]) Protonix 40MG Oral Tablet 03/13/2018 GR EENWAY ([facility] Delayed Release 12:00:00 AM [facility]) Hydrochlorothiazide 25 MG / 03/13/2018 [place] ([facility] Losartan Potassium 100 MG 12:00:00 AM [facility] Tablet [facility]) atorvastatin 10 MG Oral 01/01/2018 [facility] Tablet [Lipitor] 12:00:00 AM EDT Folic Acid 1 MG Oral Tablet 01/01/2018 12:00:00 AM EDT Chlordiazepoxide 01/01/2018 [facility] Hydrochloride 25 MG Oral 12:00:00 AM EDT Capsule 24 HR Glipizide 5 MG 01/01/2018 [facility] Extended Release Oral Tablet 12:00:00 AM EDT [Glucotrol] 24 HR Metformin 01/01/2018 hydrochloride 1000 MG 12:00:00 AM EDT Extended Release Oral Tablet [Fortamet] Omeprazole 40 MG Delayed 01/01/2018 [facility] Release Oral Capsule 12:00:00 AM EDT Thiamine Mononitrate 01/01/2018 [facility] (Vitamin B-1) 100 Mg Tablet, 12:00:00 AM EDT 100 Mg Oral Metformin hydrochloride 1000 06/27/2017 [place] ([facility] MG Oral Tablet 12:00:00 AM [facility]) Hydrochlorothiazide 25 MG / 06/27/2017 MAGALI ([facility] Losartan Potassium 100 MG 12:00:00 AM [facility]) atorvastatin 10 MG Oral 06/27/2017 GREE NWFREDRICK ([facility] Tablet 12:00:00 AM [facility]) Protonix 40MG Oral Tablet 06/27/2017 GR MILES ([facility] Delayed Release 12:00:00 AM EST [facility]) Omeprazole 40 MG Delayed 08/04/2016 [facility] Release Oral Capsule 12:00:00 AM EDT Losartan Potassium 100 MG 06/28/2016 GR MILES ([facility] Oral Tablet 12:00:00 AM [facility]) Omeprazole 40 MG Delayed 06/21/2016 [facility] Release Oral Capsule 12:00:00 AM EST Chlordiazepoxide 06/17/2016 [facility] Hydrochloride 25 MG Oral 12:00:00 AM EST Capsule Losartan Potassium 50 MG 06/17/2016 [facility] Oral Tablet [Cozaar] 12:00:00 AM EST Hydrochlorothiazide 12.5 MG 03/10/2016 MAGALI ([facility] / Losartan Potassium 100 MG 12:00:00 AM [facility]) Simvastatin 10 MG Oral 03/10/[address] ([facility] Tablet 12:00:00 AM [facility]) Metformin hydrochloride 500 03/10/2016 MAGALI ([facility] MG Oral Tablet 12:00:00 AM [facility]) Hydrochlorothiazide 12.5 MG 02/23/2016 MAGALI ([facility] / Losartan Potassium 100 MG 12:00:[address] [facility]) Hydrochlorothiazide 12.5 MG 02/23/2016 MAGALI ([facility] / Losartan Potassium 100 MG 12:00:[address] [facility]) Hydrochlorothiazide 12.5 MG 04/11/2015 MAGALI ([facility] / Losartan Potassium 100 MG 12:00:00 AM [facility]) Metformin hydrochloride 1000 04/11/2015 MAGALI ([facility] MG Oral Tablet 12:00:00 AM [facility]) Simvastatin 20 MG Oral 03/04/[address] ([place] Tablet 12:00:00 AM [facility]) Hydrochlorothiazide 12.5 MG 05/30/2014 MAGALI ([facility] / Losartan Potassium 100 MG 12:00:00 AM [facility] Oral Tablet [facility]) Simvastatin 10 MG Oral 01/01/[address] ([place] Tablet 12:00:00 AM EDT [facility]) Metformin hydrochloride 500 11/27/2013 MAGALI ([facility] MG Oral Tablet 12:00:00 AM EDT [facility]) Protonix 40MG OR TBEC 11/27/2013 GREENW AY [facility] Hydrochlorothiazide 12.5 MG 11/27/2013 MAGALI ([facility] / Losartan Potassium 100 MG 12:00:00 AM [facility] Oral Tablet [facility]) Losartan Potassium 25 MG 04/10/2013 GRE ENWAY ([facility] Oral Tablet 12:00:00 AM [facility]) Protonix 40MG OR TBEC 03/20/2013 GREENW AY (Mount 12:00:00 AM [facility]) Hydrochlorothiazide 25 MG / Losartan Potassium 100 MG Oral Tablet Hydrochlorothiazide 12.5 MG / Losartan Potassium 100 MG Oral Tablet Metformin hydrochloride 500 [facility] MG Oral Tablet Simvastatin 10 MG Oral Tablet
--- NOTE | 2020-01-15 20:16 | CON.GI ---
Consult Consult Specialty:: Gastroenterology ( covering the [facility] GI service) Referred by:: Dr Jacob Shore Reason for Consultation:: GI bleed - History of Present Illness Chief Complaint: Hematemesis and melena History of Present Illness: 44M developed epigastric pain with N/V and inability to eat or drink for the past 3 days. He describes coffee ground emesis and melena. He was seen on the [facility] 3 days ago but was discharged. Today he developed tremors despite keeping down about a pint of vodka this morning so he came to [facility] for detox who transferred him here. He had a similar presentation several years ago and underwent an EGD at [facility] where he was told of alcoholic gastritis and a hiatal hernia. He has never been told that he had varices, cirrhosis, ascites or pancreatitis. He has been drinking a quart of vodka daily. He is diabetic. 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 His father of alcoholic cirrhosis. - History Source History Provided By: Patient Limitations to Obtaining History: No Limitations - Past Medical History Cardio/Vascular: Yes: HTN Gastrointestinal: Yes: Gastritis (Alcoholic gastirtis on EGD at [facility] several years ago), Hiatal Hernia Hepatobiliary: Yes: Other Psych: Yes: Addictions (alcoholism) Endocrine: Yes: Diabetes Mellitus - Past Surgical History Past Surgical History: Yes: None, Upper Endoscopy - Alcohol/Substance Use Hx Alcohol Use: Yes (quart of vodka daily) History of Substance Use: reports: None - Smoking History Smoking history: Current every day smoker Have you smoked in the past 12 months: Yes Aproximately how many cigarettes per day: 10 - Social History Usual Living Arrangement: Alone ADL: Independent Occupation: [employer] Place of : Other ([place]) Came to [place] (year): age 24 History of Recent Travel: No Home Medications - Allergies Allergies/Adverse Reactions: Allergies Allergy/AdvReac Type Severity Reaction Status Date / Time No Known Allergies Allergy Verified 01/15/20 14:17 - Home Medications Home Medications: Ambulatory Orders Losartan/Hydrochlorothiazide [Losartan-Hctz 100-25 mg Tab] 1 each PO DAILY 07/13/19 Metformin HCl [Glucophage] 1,000 mg PO DAILY 07/13/19 Family Medical History Family Hx Diabetes: Father Family Hx Gastrointestinal Disorder: Father ( of alcoholic cirrhosis) Other Family History: Mother had schizophrenia Review of Systems - Review of Systems Constitutional: reports: No Symptoms Eyes: reports: No Symptoms HENT: reports: No Symptoms Neck: reports: No Symptoms Cardiovascular: reports: Palpitations Respiratory: reports: No Symptoms Gastrointestinal: reports: Abdominal Pain, Melena, Nausea, Vomiting, Vomiting Blood Psychiatric: reports: Depression (over brother stealing his girlfriend) Physical Exam-GI Vital Signs: Vital Signs Temperature 98.6 F 01/15/20 14:12 Pulse Rate 97 H 01/15/20 19:39 Respiratory Rate 18 01/15/20 19:39 Blood Pressure 130/94 01/15/20 19:39 O2 Sat by Pulse Oximetry (%) 97 01/15/20 19:39 CBC,CMP WBC 6.0 K/mm3 (4.0-10.0) 01/15/20 14:47 RBC 4.41 M/mm3 (4.00-5.60) 01/15/20 14:47 Hgb 14.6 GM/dL (11.7-16.9) 01/15/20 14:47 Hct 42.4 % (35.4-49) 01/15/20 14:47 MCV 96.2 fl (80-96) H 01/15/20 14:47 MCH 33.2 pg (25.7-33.7) 01/15/20 14:47 MCHC 34.5 g/dl (32.0-35.9) 01/15/20 14:47 RDW 13.0 % (11.9-15.9) D 01/15/20 14:47 Plt Count 220 K/MM3 (134-434) 01/15/20 14:47 MPV 7.1 fl (7.5-11.1) L 01/15/20 14:47 Absolute Neuts (auto) 4.2 K/mm3 (1.5-8.0) 01/15/20 14:47 Neutrophils % 70.4 % (42.8-82.8) 01/15/20 14:47 Lymphocytes % 23.3 % (8-40) 01/15/20 14:47 Monocytes % 5.8 % (3.8-10.2) 01/15/20 14:47 Eosinophils % 0.1 % (0-4.5) 01/15/20 14:47 Basophils % 0.4 % (0-2.0) 01/15/20 14:47 Nucleated RBC % 0 % (0-0) 01/15/20 14:47 Sodium 135 mmol/L (136-145) L 01/15/20 14:47 Potassium 3.4 mmol/L (3.5-5.1) L 01/15/20 14:47 Chloride 98 mmol/L (98-107) 01/15/20 14:47 Carbon Dioxide 26 mmol/L (21-32) 01/15/20 14:47 Anion Gap 11 MMOL/L (8-16) 01/15/20 14:47 BUN 4.7 mg/dL (7-18) L 01/15/20 14:47 Creatinine 0.8 mg/dL (0.55-1.3) 01/15/20 14:47 Est GFR (CKD-EPI)AfAm 125.04 01/15/20 14:47 Est GFR (CKD-EPI)NonAf 107.88 01/15/20 14:47 POC Glucometer 85 UNITS (80-120) 01/15/20 17:41 Random Glucose 202 mg/dL (74-106) H 01/15/20 14:47 Calcium 8.5 mg/dL (8.5-10.1) 01/15/20 14:47 Total Bilirubin 0.7 mg/dL (0.2-1) 01/15/20 14:47 AST 45 U/L (15-37) H 01/15/20 14:47 ALT 45 U/L (13-61) 01/15/20 14:47 Alkaline Phosphatase 92 U/L (45-117) 01/15/20 14:47 Creatine Kinase 191 U/L (26-308) 01/15/20 14:47 Creatine Kinase Index 0.5 % (0.0-5.0) 01/15/20 14:47 CK-MB (CK-2) 1.0 ng/mL (0.5-3.6) 01/15/20 14:47 Troponin I < 0.02 ng/ml (0.00-0.05) 01/15/20 14:47 Total Protein 8.2 g/dl (6.4-8.2) 01/15/20 14:47 Albumin 4.2 g/dl (3.4-5.0) 01/15/20 14:47 Current Medications Generic Name Dose Route Start Last Admin Trade Name Freq PRN Reason Stop Dose Admin Chlordiazepoxide HCl 50 mg 01/15/20 23:00 Librium - PO 01/16/20 23:01 [id number] JUAN Chlordiazepoxide HCl 25 mg 01/17/20 05:00 Librium - PO 01/17/20 23:01 [id number] JUAN Chlordiazepoxide HCl 25 mg 01/15/20 18:24 Librium - PO 01/17/20 23:59 Q4H PRN WITHDRAWAL(CONT SUBST) Chlordiazepoxide HCl 10 mg 01/18/20 05:00 Librium - PO 01/18/20 23:01 [id number] JUAN Chlordiazepoxide HCl 10 mg 01/19/20 05:00 Librium - PO 01/19/20 17:01 Q12H JUAN Chlordiazepoxide HCl 10 mg 01/18/20 00:00 Librium - PO 01/19/20 00:00 Q4H PRN WITHDRAWAL(CONT SUBST) Chlordiazepoxide HCl 10 mg 01/20/20 05:00 Librium - PO 01/20/20 05:01 ONCE@0500 ONE Dextrose/Sodium Chloride 1,000 mls @ 100 mls/hr 01/15/20 19:00 D5-Ns - IV ASDIR [facility] Insulin Aspart 1 vial 01/15/20 17:15 01/15/20 17:44 Novolog Vial Sliding Scale - SQ Not Given Q6H [facility] Protocol Constitutional: Yes: Anxious Eyes: Yes: Conjunctiva Clear HENT: Yes: Atraumatic Neck: Yes: Trachea Midline Cardiovascular: Yes: Tachycardia Respiratory: Yes: CTA Bilaterally Gastrointestinal Inspection: Yes: WNL ...Auscultate: Yes: Normoactive Bowel Sounds ...Palpate: Yes: Soft, Other (nontender) ...Rectal Exam: Yes: Guaiac Positive (dried dark speck of guaiac positive stool), Hemorrhoids/External Edema: No Neurological: Yes: Alert, Oriented, Tremors Labs: CBC, BMP 01/15/20 14:47 01/15/20 14:47 Problem List - Problems (1) Coffee ground emesis Code(s): K92.0 - HEMATEMESIS (2) Diabetic gastroparesis associated with type 2 diabetes mellitus Code(s): E11.43 - TYPE 2 DIABETES W DIABETIC AUTONOMIC (POLY)NEUROPATHY; K31.84 - GASTROPARESIS (3) Alcohol withdrawal Code(s): F10.239 - ALCOHOL DEPENDENCE WITH WITHDRAWAL, UNSPECIFIED Qualifiers: Complication of substance-induced condition: with unspecified complication Qualified Code(s): F10.239 - Alcohol dependence with withdrawal, unspecified (4) Diabetes mellitus Code(s): E11.9 - TYPE 2 DIABETES MELLITUS WITHOUT COMPLICATIONS (5) Hypertension Code(s): I10 - ESSENTIAL (PRIMARY) HYPERTENSION Assessment/Plan Impression: - Given his normal Hb, low BUN and remarkably normal liver studies I suspect that Yao is more likely to have diabetic gastroparesis than a GI bleed but he must be watched for bleeding. I have discussed EGD intervention with him and informed him of the potential for such complications as perforation and hemorrhage. He has signed an informed consent. - Alcohol withdrawal Plan: -- Agree with PPI drip -- Empirically start Reglan and IV hydration for gastroparesis -- Can use GI tract for Librium detox regimen -- Check for ketones and repeat glucose,CBC with HbA1C and INR -- Liver imaging -- EGD when COVID status is known or emergently if overt bleeding ensues -- Discussed need to abstain from alcohol with Yao. Will need counseling and may benefit from a psych evaluation Discussed with Dr Shore
[2020-01-15] MEDS: DEXTROSE 5%-NORMAL SALINE 1,000 ML IV SCH (21:29)
[2020-01-15] MEDS ORDERED: chlordiazePOXIDE HCL 25 MG CAPSULE ONE ×2 (21:47→23:10)
[2020-01-15] MEDS: chlordiazePOXIDE HCL 25 MG CAPSULE PO PRN (21:50)
[2020-01-15] MEDS ORDERED: LORazepam 0.5 MG TABLET PO SCH (23:00)
--- NOTE | 2020-01-15 23:01 | PN ---
Teaching Attending Note Name of Resident: Modesta Colon ATTENDING PHYSICIAN STATEMENT I saw and evaluated the patient. I reviewed the resident's note and discussed the case with the resident. I agree with the resident's findings and plan as documented. SUBJECTIVE: Patient seen and examined at bedside, endorses drinking 1/4 vodka daily, was seen at [facility] where he was diagnosed via EGD w/ Etoh induced gastritis, now endorsing melena/hematemesis. GI following. OBJECTIVE: GA intoxicated, tired appearing, AAOx2 HEENT NC/aT, dry MM, no scleral icterus, neck supple Chest CTAB, no crackles CVS S1, S2+, RRR Abd no visible ascites, NT, ND, palpable liver, BS+ Ext no LE edema, no calf tenderness NEuro mild tremor noted Vital Signs (72 hours) 01/15/20 01/15/20 14:12 19:39 Temperature 98.6 F Pulse Rate 109 H Pulse Rate [ 97 H Apical] Respiratory 16 18 Rate Blood Pressure 148/114 H Blood Pressure 130/94 [Right Arm] O2 Sat by Pulse 96 97 Oximetry (%) Laboratory Results - last 24 hr 01/15/20 01/15/20 01/15/20 14:47 14:47 14:47 WBC 6.0 RBC 4.41 Hgb 14.6 Hct 42.4 MCV 96.2 H MCH 33.2 MCHC 34.5 RDW 13.0 D Plt Count 220 MPV 7.1 L Absolute Neuts (auto) 4.2 Neutrophils % 70.4 Lymphocytes % 23.3 Monocytes % 5.8 Eosinophils % 0.1 Basophils % 0.4 Nucleated RBC % 0 Sodium 135 L Potassium 3.4 L Chloride 98 Carbon Dioxide 26 Anion Gap 11 BUN 4.7 L Creatinine 0.8 Est GFR (CKD-EPI)AfAm 125.04 Est GFR (CKD-EPI)NonAf 107.88 POC Glucometer Random Glucose 202 H Calcium 8.5 Total Bilirubin 0.7 AST 45 H ALT 45 Alkaline Phosphatase 92 Creatine Kinase 191 Creatine Kinase Index 0.5 CK-MB (CK-2) 1.0 Troponin I < 0.02 Total Protein 8.2 Albumin 4.2 Stool Occult Blood Blood Type O POSITIVE Antibody Screen Negative 01/15/20 01/15/20 01/15/20 15:12 17:41 20:58 WBC RBC Hgb Hct MCV MCH MCHC RDW Plt Count MPV Absolute Neuts (auto) Neutrophils % Lymphocytes % Monocytes % Eosinophils % Basophils % Nucleated RBC % Sodium Potassium Chloride Carbon Dioxide Anion Gap BUN Creatinine Est GFR (CKD-EPI)AfAm Est GFR (CKD-EPI)NonAf POC Glucometer 85 82 Random Glucose Calcium Total Bilirubin AST ALT Alkaline Phosphatase Creatine Kinase Creatine Kinase Index CK-MB (CK-2) Troponin I Total Protein Albumin Stool Occult Blood Negative Blood Type Antibody Screen Home Medications Medication Instructions Recorded Losartan/Hydrochlorothiazide 1 each PO DAILY 07/13/19 [Losartan-Hctz 100-25 mg Tab] Metformin HCl [Glucophage] 1,000 mg PO DAILY 07/13/19 Current Medications Generic Name Dose Route Start Last Admin Trade Name Freq PRN Reason Stop Dose Admin Chlordiazepoxide HCl 50 mg 01/15/20 23:00 Librium - PO 01/16/20 23:01 [id number] JUAN Chlordiazepoxide HCl 25 mg 01/17/20 05:00 Librium - PO 01/17/20 23:01 [id number] JUAN Chlordiazepoxide HCl 25 mg 01/15/20 18:24 01/15/20 21:50 Librium - PO 01/17/20 23:59 25 mg Q4H PRN Administration WITHDRAWAL(CONT SUBST) Chlordiazepoxide HCl 10 mg 01/18/20 05:00 Librium - PO 01/18/20 23:01 [id number] JUAN Chlordiazepoxide HCl 10 mg 01/19/20 05:00 Librium - PO 01/19/20 17:01 Q12H JUAN Chlordiazepoxide HCl 10 mg 01/18/20 00:00 Librium - PO 01/19/20 00:00 Q4H PRN WITHDRAWAL(CONT SUBST) Chlordiazepoxide HCl 10 mg 01/20/20 05:00 Librium - PO 01/20/20 05:01 ONCE@0500 ONE Dextrose/Sodium Chloride 1,000 mls @ 100 mls/hr 01/15/20 19:00 01/15/20 21:29 D5-Ns - IV 100 mls/hr ASDIR JUAN Administration Insulin Aspart 1 vial 01/15/20 17:15 01/15/20 17:44 Novolog Vial Sliding Scale - SQ Not Given Q6H JUAN Protocol Metoclopramide HCl 10 mg 01/15/20 20:43 Reglan Injection - IVPUSH Q6H PRN NAUSEA AND/OR VOMITING Pantoprazole Sodium 40 mg 01/16/20 10:00 Protonix Iv IVPUSH BID JUAN ASSESSMENT AND PLAN: 44 M Etoh intoxication and withdrawal HTN Depression Suspected UGIB h/o Etoh gastritis Hiatal hernia Plan: IVF w/ D5NS, NPO, PPI BID Reglan for nausea/vomiting Librium protocol for Etoh withdrawal Monitor CBC Q12H, normal transfusion threshold if needed now H/H stable Needs detox/rehab when stabilized Psych evaluation for depression DVT ppx: SCD
[2020-01-15] MEDS: chlordiazePOXIDE HCL 25 MG CAPSULE PO SCH (23:12)
[2020-01-16] MEDS ORDERED: LORazepam 2 MG/ML SDV VIAL IVPUSH ONE (01:51)
[2020-01-16 01:55] LABS: PH,URINE 7.5 (5.0-8.0); URINE APPEARANCE CLEAR; URINE BILIRUBIN NEGATIVE (NEGATIVE); URINE COLOR YELLOW; URINE GLUCOSE (UA) 3+ (NEGATIVE); URINE KETONE NEGATIVE (NEGATIVE); URINE LEUK ESTERASE NEGATIVE (NEGATIVE); URINE NITRITE NEGATIVE (NEGATIVE); URINE PROTEIN NEGATIVE (NEGATIVE)
[2020-01-16] MEDS ORDERED: LORazepam 2 MG/ML SDV VIAL ONE (01:59)
[2020-01-16] MEDS ORDERED: ACETAMINOPHEN 325 MG TABLET (FP) PO PRN (02:01)
[2020-01-16] MEDS: INSULIN SLIDING SCALE (NOVOLOG) 1 VIAL SQ SCH ×4 (05:05→22:20)
[2020-01-16] MEDS ORDERED: chlordiazePOXIDE HCL 25 MG CAPSULE ONE ×3 (05:07→17:15)
[2020-01-16] MEDS: chlordiazePOXIDE HCL 25 MG CAPSULE PO SCH ×4 (05:10→22:13)
[2020-01-16 06:45] LABS: HEMATOCRIT 36.1 % (35.4-49); HEMOGLOBIN 12.8 GM/dL (11.7-16.9); MCH 34.2 pg (25.7-33.7); MCHC 35.4 g/dl (32.0-35.9); MEAN CELL VOLUME 96.7 fl (80-96); MEAN PLT VOLUME 7.6 fl (7.5-11.1); PLATELET COUNT 177 K/MM3 (134-434); RBC 3.74 M/mm3 (4.00-5.60); RDW 13.1 % (11.9-15.9); WHITE BLOOD COUNT 7.3 K/mm3 (4.0-10.0)
[2020-01-16 07:00] LABS: ALBUMIN 3.6 g/dl (3.4-5.0); BILIRUBIN,TOTAL 1.4 mg/dL (0.2-1); BLOOD UREA NITROGEN 7.7 mg/dL (7-18); CALCIUM 8.1 mg/dL (8.5-10.1); CREATININE 0.7 mg/dL (0.55-1.3); POTASSIUM 3.5 mmol/L (3.5-5.1); TOT PROT 6.7 g/dl (6.4-8.2)
[2020-01-16 09:44] LABS: INR 1.02 (0.83-1.09)
--- NOTE | 2020-01-16 09:44 | PN ---
Progress Note (short form) - Note Progress Note: S: No acute events. Pt with increased tremulousness and possibly some auditory hallucinations. Otherwise no complaints and no further bloody discharge. Vital Signs Temperature 98.1 F 01/16/20 10:59 Pulse Rate 95 H 01/16/20 10:59 Respiratory Rate 18 01/16/20 10:18 Blood Pressure 139/99 01/16/20 10:59 O2 Sat by Pulse Oximetry (%) 99 01/16/20 10:59 PE: Gen: NAD, awake, alert, oriented HEENT: NC/At, EOMI without nystagmus, IDANIA, sclera anicteric, MMM Neck: No JVD LUNG: CTA b/l without rales or wheezes. on RA CARD: Tachycardic with regular rhythm, no murmurs ABD: soft, NT/ND, normoactive BS, no hepatojugular reflux Neuro: Tremulous, nonfocal exam EXT: No edema, strong pulses CBC, BMP 01/16/20 05:30 01/16/20 05:30 Active Medications Acetaminophen (Tylenol -) 650 mg PO Q6H PRN PRN Reason: Fever Or Pain Chlordiazepoxide HCl (Librium -) 50 mg PO [id number] JUAN Stop: 01/16/20 23:01 Last Admin: 01/16/20 05:10 Dose: 50 mg Documented by: Chlordiazepoxide HCl (Librium -) 25 mg PO [id number] JUAN Stop: 01/17/20 23:01 Chlordiazepoxide HCl (Librium -) 25 mg PO Q4H PRN PRN Reason: WITHDRAWAL(CONT SUBST) Stop: 01/17/20 23:59 Last Admin: 01/15/20 21:50 Dose: 25 mg Documented by: Chlordiazepoxide HCl (Librium -) 10 mg PO Q1A-HHP JUAN Stop: 01/18/20 23:01 Chlordiazepoxide HCl (Librium -) 10 mg PO Q12H JUAN Stop: 01/19/20 17:01 Chlordiazepoxide HCl (Librium -) 10 mg PO Q4H PRN PRN Reason: WITHDRAWAL(CONT SUBST) Stop: 01/19/20 00:00 Chlordiazepoxide HCl (Librium -) 10 mg PO ONCE@0500 ONE Stop: 01/20/20 05:01 Dextrose/Sodium Chloride (D5-Ns -) 1,000 mls @ 100 mls/hr IV ASDIR [facility] Last Admin: 01/15/20 21:29 Dose: 100 mls/hr Documented by: Insulin Aspart (Novolog Vial Sliding Scale -) 1 vial SQ Q6H [facility]; Protocol Last Admin: 01/16/20 05:05 Dose: Not Given Documented by: Metoclopramide HCl (Reglan Injection -) 10 mg IVPUSH Q6H PRN PRN Reason: NAUSEA AND/OR VOMITING Pantoprazole Sodium (Protonix Iv) 40 mg IVPUSH BID [facility] Last Admin: 01/16/20 09:52 Dose: 40 mg Documented by: A/P: Suspected Upper GI Bleed Acute alcohol withdrawal Type 2 DM History of HTN --Pt on librium taper; gave extra 10mg Librium due to worsening withdrawal signs currently --Monitor CIWA --Monitor for seizure activity --Pt okay with going to [facility] if other acute issues resolve --Monitor H/H --Slight drop but WNL on most recent CBC --CBC q12h for initial stability --Continue Protonix IVP BID --GI on board: EGD discussed with patient --NPO for now --IVF while patient is NPO with monitoring volume status --BGM --A1c pending and ISS for coverage --BMP fasting glucose controlled today Dispo: Telemetry monitoring DO Oralia White IM
[2020-01-16] MEDS ORDERED: PANTOPRAZOLE SODIUM 40 MG VIAL ONE (09:45)
[2020-01-16] MEDS ORDERED: chlordiazePOXIDE 5 MG CAPSULE ONE (09:45)
[2020-01-16] MEDS: PANTOPRAZOLE SODIUM 40 MG VIAL IVPUSH SCH ×2 (09:52→21:25)
--- NOTE | 2020-01-16 10:01 | EKG ---
Test Reason : Blood Pressure : / mmHG Vent. Rate : 104 BPM Atrial Rate : 104 BPM P-R Int : 138 ms QRS Dur : 066 ms QT Int : 346 ms P-R-T Axes : 059 080 071 degrees QTc Int : 454 ms SINUS TACHYCARDIA OTHERWISE NORMAL ECG NO PREVIOUS ECGS AVAILABLE Confirmed by Avinash Will ([id number]) on 01/16/2020 10:00:19 AM Referred By: Confirmed By:Avinash Will
[2020-01-16] MEDS ORDERED: chlordiazePOXIDE 5 MG CAPSULE PO ONE (10:45)
--- NOTE | 2020-01-16 12:45 | PN.GI ---
GI Progress Note Subjective: NO REPORT OF MELENA / BRBR / HEMETEMESIS SOME TREMOR - Objective Vital Signs: Vital Signs Temperature 98.3 F 01/16/20 12:00 Pulse Rate 70 01/16/20 12:00 Respiratory Rate 18 01/16/20 10:18 Blood Pressure 136/99 01/16/20 12:00 O2 Sat by Pulse Oximetry (%) 99 01/16/20 12:00 Constitutional: Well Nourished, No Distress Cardiovascular: Yes: WNL, Regular Rate and Rhythm Respiratory: Yes: WNL, Regular, CTA Bilaterally Gastrointestinal Inspection: Yes: WNL ...Auscultate: Yes: Normoactive Bowel Sounds Labs: CBC, BMP 01/16/20 05:30 01/16/20 05:30 INR, PTT INR 1.02 (0.83-1.09) 01/16/20 05:30 Problem List - Problems (1) Alcohol withdrawal Assessment/Plan: LIVER IMAGING REVIEWED - WNL H/H STABLE NO FURTHER EVIDENCE OF GI BLEED; MONITOR Q12 C/W PPI INFUSION ETOH WITHDRAWAL PROTOCOL REGLAN TID NPO / IVF;S MAY HAVE ICE CHIPS PLAN FOR DIAGNOSTIC EGD TUESDAY PENDING COVID 19 TESTING Code(s): F10.239 - ALCOHOL DEPENDENCE WITH WITHDRAWAL, UNSPECIFIED Qualifiers: Complication of substance-induced condition: with unspecified complication Qualified Code(s): F10.239 - Alcohol dependence with withdrawal, unspecified (2) Coffee ground emesis Code(s): K92.0 - HEMATEMESIS (3) Diabetic gastroparesis associated with type 2 diabetes mellitus Code(s): E11.43 - TYPE 2 DIABETES W DIABETIC AUTONOMIC (POLY)NEUROPATHY; K31.84 - GASTROPARESIS (4) Elevated alanine aminotransferase (ALT) level Code(s): R74.0 - NONSPEC ELEV OF LEVELS OF TRANSAMNS & LACTIC ACID DEHYDRGNSE
[2020-01-16] MEDS ORDERED: METOCLOPRAMIDE HCL INJECTION 10 MG/2 ML VIAL ONE (15:01)
[2020-01-16] MEDS ORDERED: ACETAMINOPHEN 325 MG TABLET (FP) ONE (15:01)
[2020-01-16 17:26] LABS: HEMOGLOBIN 12.6 GM/dL (11.7-16.9); MCH 32.9 pg (25.7-33.7); MEAN CELL VOLUME 96.8 fl (80-96); MEAN PLT VOLUME 7.1 fl (7.5-11.1); PLATELET COUNT 170 K/MM3 (134-434); RBC 3.82 M/mm3 (4.00-5.60); RDW 12.8 % (11.9-15.9); WHITE BLOOD COUNT 5.8 K/mm3 (4.0-10.0)
[2020-01-16] MEDS: DEXTROSE 5%-NORMAL SALINE 1,000 ML IV SCH (19:20)
[2020-01-16] MEDS: METOCLOPRAMIDE HCL INJECTION 10 MG/2 ML VIAL IVPUSH PRN (21:25)
[2020-01-16] MEDS ORDERED: PNEUMOC 13-VAL CONJ-DIP CRM/PF 0.5 ML DISP.SYRIN IM ONE (23:47)
[2020-01-17] MEDS ORDERED: LORazepam 1 MG TABLET PO SCH (05:00)
[2020-01-17] MEDS: chlordiazePOXIDE HCL 25 MG CAPSULE PO SCH ×4 (05:00→22:08)
[2020-01-17] MEDS: METOCLOPRAMIDE HCL INJECTION 10 MG/2 ML VIAL IVPUSH PRN (05:07)
[2020-01-17] MEDS: DEXTROSE 5%-NORMAL SALINE 1,000 ML IV SCH (05:08)
[2020-01-17] MEDS: INSULIN SLIDING SCALE (NOVOLOG) 1 VIAL SQ SCH ×4 (05:11→22:44)
[2020-01-17 06:55] LABS: HEMATOCRIT 35.2 % (35.4-49); HEMOGLOBIN 12.4 GM/dL (11.7-16.9); MCH 33.7 pg (25.7-33.7); MCHC 35.1 g/dl (32.0-35.9); MEAN CELL VOLUME 96.1 fl (80-96); MEAN PLT VOLUME 7.7 fl (7.5-11.1); PLATELET COUNT 173 K/MM3 (134-434); RBC 3.66 M/mm3 (4.00-5.60); RDW 13.1 % (11.9-15.9); WHITE BLOOD COUNT 4.6 K/mm3 (4.0-10.0)
[2020-01-17 07:16] LABS: INR 1.04 (0.83-1.09); PROTHROMBIN TIME (PATIENT) 12.3 SEC (9.7-13.0)
[2020-01-17 07:20] LABS: BLOOD UREA NITROGEN 3.6 mg/dL (7-18); CALCIUM 8.1 mg/dL (8.5-10.1); CREATININE 0.6 mg/dL (0.55-1.3); MAGNESIUM 1.6 mg/dL (1.8-2.4); PHOSPHOROUS 2.9 mg/dL (2.5-4.9); POTASSIUM 3.2 mmol/L (3.5-5.1)
[2020-01-17] MEDS ORDERED: MAGNESIUM 2GM/50ML STERILE WATER IVPB IVPB ONE (08:45)
[2020-01-17] MEDS ORDERED: PNEUMOCOCCAL 23 VACCINE 0.5 ML VIAL IM ONE (09:00)
[2020-01-17] MEDS: chlordiazePOXIDE HCL 25 MG CAPSULE PO PRN (09:37)
[2020-01-17] MEDS: PANTOPRAZOLE SODIUM 40 MG VIAL IVPUSH SCH (09:38)
[2020-01-17] MEDS: KCL 10 MEQ IVPB 10 MEQ/100 ML INFUS.BAG IVPB SCH ×3 (09:38→14:09)
--- NOTE | 2020-01-17 10:37 | PN ---
Progress Note (short form) - Note Progress Note: S: No acute events. EGD today. Patient with continued tremulousness. Slept uncomfortably, but was able to sleep Vital Signs Temperature 97.7 F 01/17/20 09:45 Pulse Rate 78 01/17/20 09:45 Respiratory Rate 18 01/17/20 09:45 Blood Pressure 122/61 01/17/20 09:45 O2 Sat by Pulse Oximetry (%) 98 01/17/20 09:45 PE: Gen: NAD, awake, alert, oriented HEENT: NC/At, EOMI without nystagmus, IDANIA, sclera anicteric, MMM Neck: No JVD LUNG: CTA b/l without rales or wheezes. on RA CARD: Tachycardic with regular rhythm, no murmurs ABD: soft, NT/ND, normoactive BS, no hepatojugular reflux, no asterixis Neuro: Increased Tremulous, nonfocal exam EXT: No edema, strong pulses CBC, BMP 01/17/20 05:35 01/17/20 05:35 Active Medications Acetaminophen (Tylenol -) 650 mg PO Q6H PRN PRN Reason: Fever Or Pain Chlordiazepoxide HCl (Librium -) 25 mg PO [id number] JUAN Stop: 01/17/20 23:01 Last Admin: 01/17/20 05:00 Dose: 25 mg Documented by: Chlordiazepoxide HCl (Librium -) 25 mg PO Q4H PRN PRN Reason: WITHDRAWAL(CONT SUBST) Stop: 01/17/20 23:59 Last Admin: 01/17/20 09:37 Dose: 25 mg Documented by: Chlordiazepoxide HCl (Librium -) 10 mg PO [id number] JUAN Stop: 01/18/20 23:01 Chlordiazepoxide HCl (Librium -) 10 mg PO Q12H JUAN Stop: 01/19/20 17:01 Chlordiazepoxide HCl (Librium -) 10 mg PO Q4H PRN PRN Reason: WITHDRAWAL(CONT SUBST) Stop: 01/19/20 00:00 Chlordiazepoxide HCl (Librium -) 10 mg PO ONCE@0500 ONE Stop: 01/20/20 05:01 Dextrose/Sodium Chloride (D5-Ns -) 1,000 mls @ 100 mls/hr IV ASDIR JUAN Last Admin: 01/17/20 05:08 Dose: 100 mls/hr Documented by: Potassium Chloride (Potassium Chloride 10 Meq Premix Ivpb -) 10 meq in 100 mls @ 100 mls/hr IVPB Q60M [facility] Stop: 01/17/20 11:44 Last Admin: 01/17/20 09:38 Dose: 100 mls/hr Documented by: Insulin Aspart (Novolog Vial Sliding Scale -) 1 vial SQ Q6H [facility]; Protocol Last Admin: 01/17/20 05:11 Dose: Not Given Documented by: Metoclopramide HCl (Reglan Injection -) 10 mg IVPUSH Q6H PRN PRN Reason: NAUSEA AND/OR VOMITING Last Admin: 01/17/20 05:07 Dose: 10 mg Documented by: Pantoprazole Sodium (Protonix Iv) 40 mg IVPUSH BID [facility] Last Admin: 01/17/20 09:38 Dose: 40 mg Documented by: A/P: Suspected Upper GI Bleed Acute alcohol withdrawal Type 2 DM History of HTN --Pt on librium taper; PRN 25mg given once today (next scheduled dose around 11am) due to increased tremulousness --Day 3 of withdrawal today --Monitor CIWA --Monitor for seizure activity --H/H stable --Undergoing EGD today and recs pending EGD findings --Can changed to CBC daily for monitoring purposes --Protonix IVP BID; continuation pending GI/EGD --NPO for now; advancement post-procedure per GI --IVF while patient is NPO with monitoring volume status --BGM --A1c pending and ISS for coverage --BMP fasting glucose in range Dispo: EGD today Marcin Lucas DO - IM
--- NOTE | 2020-01-17 13:06 | PN ---
Progress Note (short form) - Note Progress Note: EGD complete. report placed in the procedural section of the physical chart and will be scanned into [employer]. Patient needs to stop drinkig alcohol.
[2020-01-17] MEDS: LOSARTAN POTASSIUM 50 MG TABLET PO SCH (17:57)
[2020-01-17] MEDS: FOLIC ACID 1 MG TABLET (FP) PO SCH (17:57)
[2020-01-17] MEDS: THIAMINE HCL 200 MG/2 ML VIAL IVPB SCH (17:57)
[2020-01-18] VITALS: BMI 22.9
[2020-01-18] MEDS ORDERED: chlordiazePOXIDE HCL 10 MG CAPSULE PO PRN
[2020-01-18] MEDS ORDERED: LORazepam 0.5 MG TABLET PO PRN
[2020-01-18] MEDS: chlordiazePOXIDE HCL 10 MG CAPSULE PO SCH ×2 (04:10→11:30)
[2020-01-18] MEDS: INSULIN SLIDING SCALE (NOVOLOG) 1 VIAL SQ SCH ×2 (04:31→11:31)
[2020-01-18] MEDS ORDERED: LORazepam 0.5 MG TABLET PO SCH (05:00)
[2020-01-18 06:38] LABS: HEMATOCRIT 37.9 % (35.4-49); HEMOGLOBIN 13.1 GM/dL (11.7-16.9); MCH 33.4 pg (25.7-33.7); MCHC 34.7 g/dl (32.0-35.9); MEAN CELL VOLUME 96.3 fl (80-96); MEAN PLT VOLUME 7.4 fl (7.5-11.1); PLATELET COUNT 183 K/MM3 (134-434); RBC 3.94 M/mm3 (4.00-5.60); RDW 13.2 % (11.9-15.9)
[2020-01-18 06:43] LABS: BLOOD UREA NITROGEN 3.8 mg/dL (7-18); CALCIUM 8.8 mg/dL (8.5-10.1); CREATININE 0.6 mg/dL (0.55-1.3); MAGNESIUM 2.1 mg/dL (1.8-2.4); PHOSPHOROUS 3.5 mg/dL (2.5-4.9); POTASSIUM 3.3 mmol/L (3.5-5.1)
[2020-01-18 09:19] VITALS: BP 127/78; PULSE 77; TEMP 98.8
[2020-01-18] MEDS: LOSARTAN POTASSIUM 50 MG TABLET PO SCH (09:19)
[2020-01-18] MEDS: FOLIC ACID 1 MG TABLET (FP) PO SCH (09:19)
[2020-01-18] MEDS: THIAMINE HCL 200 MG/2 ML VIAL IVPB SCH (09:20)
[2020-01-18] MEDS ORDERED: MULTIVITAMINS (DAILY MVI) TABLET (FP) PO SCH (10:00)
[2020-01-18] MEDS ORDERED: PANTOPRAZOLE 20 MG TABLET PO SCH (10:00)
[2020-01-18] MEDS ORDERED: POTASSIUM CHLORIDE TABS 20 MEQ TABLET.ER (FP) PO ONE (11:00)
--- NOTE | 2020-01-18 11:45 | DS ---
Physical Exam: SUBJECTIVE: Patient seen and examined OBJECTIVE: Vital Signs Period Temp Pulse Resp BP Sys/[place] Pulse Ox Last 24 Hr 97.5 F-98.8 F 73-116 14-20 105-141/67-109 97-100 PHYSICAL EXAM GENERAL: The patient is awake, alert, and fully oriented, in no acute distress. HEAD: Normal with no signs of trauma. EYES: PERRL, extraocular movements intact, sclera anicteric, conjunctiva clear. ENT: Ears normal, nares patent, oropharynx clear without exudates, moist mucous membranes. NECK: Trachea midline, full range of motion, supple. LUNGS: Breath sounds equal, clear to auscultation bilaterally, no wheezes, no crackles, no accessory muscle use. HEART: Regular rate and rhythm, S1, S2 without murmur, rub or gallop. ABDOMEN: Soft, nontender, nondistended, normoactive bowel sounds, no guarding, no rebound, no hepatosplenomegaly, no masses. EXTREMITIES: 2+ pulses, warm, well-perfused, no edema. NEUROLOGICAL: Cranial nerves II through XII grossly intact. Normal speech, gait not observed. PSYCH: Normal mood, normal affect. SKIN: Warm, dry, normal turgor, no rashes or lesions noted. LABS Laboratory Results - last 24 hr 01/17/20 01/18/20 01/18/20 21:15 04:21 05:26 WBC 5.0 RBC 3.94 L Hgb 13.1 Hct 37.9 MCV 96.3 H MCH 33.4 MCHC 34.7 RDW 13.2 Plt Count 183 MPV 7.4 L Sodium Potassium Chloride Carbon Dioxide Anion Gap BUN Creatinine Est GFR (CKD-EPI)AfAm Est GFR (CKD-EPI)NonAf POC Glucometer 91 112 Random Glucose Calcium Phosphorus Magnesium 01/18/20 05:26 WBC RBC Hgb Hct MCV MCH MCHC RDW Plt Count MPV Sodium 137 Potassium 3.3 L Chloride 102 Carbon Dioxide 28 Anion Gap 7 L BUN 3.8 L Creatinine 0.6 Est GFR (CKD-EPI)AfAm 140.73 Est GFR (CKD-EPI)NonAf 121.43 POC Glucometer Random Glucose 126 H Calcium 8.8 Phosphorus 3.5 Magnesium 2.1 Home Medications Medication Instructions Recorded Metformin HCl [Glucophage] 1,000 mg PO DAILY 07/13/19 Chlordiazepoxide [Librium -] 10 mg PO Q12H 2 Days #3 capsule 01/18/20 MDD 2 caps Folic Acid - 1 mg PO DAILY #15 tablet 01/18/20 Losartan Potassium [Cozaar -] 100 mg PO DAILY #14 tablet 01/18/20 Multivitamins [Multivit ([facility] 1 tab PO DAILY tab 01/18/20 Formulary)] Pantoprazole Sodium [Protonix -] 20 mg PO DAILY #30 tablet.ec 01/18/20 HOSPITAL COURSE: 44 y/o male with a history of DM, HTN, and alcohol abuse who presents from [facility] for coffee ground emesis. EGD was done and pt was found to have gastritits and refulx esophagitis. Pt was started on pantoprazole and tolerated diet. CIWA score was 0 on discharge. Date of Admission:01/15/20 Date of Discharge: 01/18/20 Minutes to complete discharge: 35 Discharge Summary Problems reviewed: Yes Reason For Visit: ALCOHOLIC INTOXICATION ALCOHOL USE DISORDER HEMATE Current Active Problems Alcohol withdrawal (Acute) Alcoholic gastritis (Acute) Coffee ground emesis (Acute) Diabetes mellitus (Acute) Diabetic gastroparesis associated with type 2 diabetes mellitus (Acute) Hypertension (Acute) Condition: Improved - Instructions Diet, Activity, Other Instructions: You were admitted because you had dark vomiting (bloody vomiting), you had Endoscopy and that showed evidence of gastritis and reflux esophagitis (inflammation in stomach and esophagus). You need to start taking the following new medications: 1. pantoprazole 20mg daily for six weeks. 2. Librium 10mg orally twice daily for one day then once daily for one day Please, continue taking the rest of your home medications as instructed. You need to stop drinking alcoholic beverages Please follow up with your primary care physician, to follow up on your electrolytes. if you do not have one you can come to our clinic. Call 911 or Return to the Emergency Department if you have worsening of symptoms. Referrals: Rosie Clark NP [Primary Care Provider] - Disposition: HOME - Home Medications Comprehensive Discharge Medication List: Ambulatory Orders Metformin HCl [Glucophage] 1,000 mg PO DAILY 07/13/19 Chlordiazepoxide [Librium -] 10 mg PO Q12H 2 Days #3 capsule MDD 2 caps 01/18/20 Folic Acid - 1 mg PO DAILY #15 tablet 01/18/20 Losartan Potassium [Cozaar -] 100 mg PO DAILY #14 tablet 01/18/20 Multivitamins [Multivit ([facility] Formulary)] 1 tab PO DAILY tab 01/18/20 Pantoprazole Sodium [Protonix -] 20 mg PO DAILY #30 tablet.ec 01/18/20 This patient is new to me today: Yes Date on this admission: 01/18/20 Emergency Visit: Yes ED Registration Date: 01/15/20 Care time: The patient presented to the Emergency Department on the above date and was hospitalized for further evaluation of their emergent condition. Critical Care patient: No - Discharge Referral Referred to [facility] Med [facility] No
--- NOTE | 2020-01-18 18:23 | PATH ---
Surgical Pathology Report Patient Name: LYNDA WARD Med. Rec. #: [id number] /Age/Gender: 1975 (Age: 44) / M Account: [id number] Location: [facility] PEDS/ADOL Taken: 01/17/2020 Received: 01/17/2020 Reported: 01/18/2020 Physicians: Delta Hernandez D.O. Specimen(s) Received ANTRAL BODY Clinical History GI bleed Postoperative diagnosis: Gastritis, esophagitis Final Diagnosis STOMACH, ANTRAL BODY, BIOPSY: GASTRIC MUCOSA WITH MILD CHRONIC GASTRITIS. IMMUNOHISTOCHEMICAL STAIN FOR H. PYLORI IS NEGATIVE. Positive and negative controls (internal if applicable) show appropriate results. Electronically Signed Modesta Cartwright M.D. Gross Description Received in formalin, labeled "biopsy antral body" are 2 willard, irregular portions of soft tissue measuring 0.3 and 0.4 cm. in greatest dimension. The specimens are submitted in toto in one cassette. 01/17/2020 [facility]01/17/2020
[2020-01-19] MEDS ORDERED: LORazepam 0.5 MG TABLET PO ONE (05:00)
[2020-01-19] MEDS ORDERED: chlordiazePOXIDE HCL 10 MG CAPSULE PO SCH (05:00)
[2020-01-20] MEDS ORDERED: chlordiazePOXIDE HCL 10 MG CAPSULE PO ONE (05:00)
== END 2020-01-18 13:46 | disposition home or self-care (01) | DRG 253 ==
LOC: JER 14:08 → JERBED 17:21 → J4S 01-16 18:24
PROVIDERS: ATTEND Student in an Organized Health Care Education/Training Program
PROC: HZ2ZZZZ Detoxification Services for Substance Abuse Treatment (ICD-10-PCS; 2020-01-15)
PROC: 0DB78ZX Excision of Stomach, Pylorus, Via Natural or Artificial Opening Endoscopic, Diagnostic (ICD-10-PCS; principal; 2020-01-17 12:30)
DX: K92.0 Hematemesis (principal); K29.21 Alcoholic gastritis with bleeding; F10.239 Alcohol dependence with withdrawal, unspecified; K21.0 Gastro-esophageal reflux disease with esophagitis; E11.43 Type 2 diabetes mellitus with diabetic autonomic (poly)neuropathy; K31.84 Gastroparesis; I10 Essential (primary) hypertension; F32.9 Major depressive disorder, single episode, unspecified; K44.9 Diaphragmatic hernia without obstruction or gangrene; R74.0 Nonspecific elevation of levels of transaminase and lactic acid dehydrogenase [LDH]
CPT/HCPCS: 36415; 71045-TC-FY; 76700-TC; 80048; 80053; 81003; 82272; 82550; 82553; 82962; 83036; 83735; 84100; 84484; 85025; 85027; 85610; 86850; 86900; 86901; 88305-TC; 90732; 93005; 93010; 99291; G0009; U0003

== ENCOUNTER 2020-01-29 00:55 | Inpatient (IN) | payer OTHER ==
[2020-01-29] MEDS ORDERED: ACETAMINOPHEN 325 MG TABLET (FP) PO PRN ×2 (01:47)
[2020-01-29] MEDS ORDERED: IBUPROFEN 400 MG TABLET (FP) PO PRN (01:47)
[2020-01-29] MEDS ORDERED: MENTHOL/PHENOL 1 EACH UD MM PRN (01:47)
[2020-01-29] MEDS ORDERED: MAGNESIUM CITRATE 300 ML BOTTLE PO PRN (01:47)
[2020-01-29] MEDS ORDERED: LORazepam 1 MG TABLET PO PRN (01:47)
[2020-01-29] MEDS ORDERED: NICOTINE POLACRILEX 2 MG GUM BUC PRN (01:47)
[2020-01-29] MEDS ORDERED: MAGNESIUM HYDROX 2400MG/30ML ORAL SUSPENSION 30 ML CUP PO PRN (01:47)
[2020-01-29] MEDS ORDERED: BISMUTH SUBSALICYLATE 524 MG/30 ML UD PO PRN (01:47)
[2020-01-29] MEDS ORDERED: METHOCARBAMOL 500 MG TABLET PO PRN (01:47)
[2020-01-29 02:26] VITALS: BMI 24.6
[2020-01-29] MEDS: LORazepam 2 MG TABLET PO SCH ×2 (06:23→10:23)
[2020-01-29] MEDS: NICOTINE 14 MG/24 HOURS TOPICAL PATCH TD SCH (10:23)
[2020-01-29] MEDS: PRENATAL VITAMINS W/ FOLIC ACID TABLET (FP) PO SCH (10:23)
[2020-01-29 11:43] LABS: HIV INTERPRETATION NEGATIVE (NEGATIVE)
[2020-01-29] MEDS ORDERED: diazePAM 5 MG TABLET PO PRN (11:56)
[2020-01-29] MEDS: LOSARTAN POTASSIUM 50 MG TABLET PO SCH (13:10)
[2020-01-29] MEDS: FAMOTIDINE 20 MG TABLET PO SCH ×2 (13:11→22:49)
[2020-01-29] MEDS ORDERED: diazePAM 5 MG TABLET PO ONE (14:00)
[2020-01-29] MEDS ORDERED: TRIMETHOBENZAMIDE HCL 200MG/2ML INJ IM ONE (14:11)
[2020-01-29] MEDS: diazePAM 5 MG TABLET PO SCH ×2 (17:54→22:50)
[2020-01-29] MEDS: ONDANSETRON *ODT* 4 MG TABLET SL PRN (17:57)
[2020-01-29] MEDS: MELATONIN 5 MG TABLETS PO SCH (22:49)
[2020-01-29] MEDS: THIAMINE HCL 100 MG TABLET (FP) PO SCH (22:49)
[2020-01-30] MEDS ORDERED: LORazepam 1 MG TABLET PO SCH (05:00)
[2020-01-30] MEDS: diazePAM 5 MG TABLET PO SCH ×3 (06:31→21:38)
[2020-01-30] MEDS: ONDANSETRON *ODT* 4 MG TABLET SL PRN (06:32)
[2020-01-30] MEDS ORDERED: PATIENT'S OWN MEDICATION (NON-FORMULARY) (Metformin Hcl [Glucophage] 1,000 MG) PO SCH (07:00)
[2020-01-30] MEDS: LOSARTAN POTASSIUM 50 MG TABLET PO SCH (10:17)
[2020-01-30] MEDS: FAMOTIDINE 20 MG TABLET PO SCH ×2 (10:18→21:38)
[2020-01-30] MEDS: PRENATAL VITAMINS W/ FOLIC ACID TABLET (FP) PO SCH (10:18)
[2020-01-30] MEDS: NICOTINE 14 MG/24 HOURS TOPICAL PATCH TD SCH (10:18)
[2020-01-30] MEDS ORDERED: TRIMETHOBENZAMIDE HCL 200MG/2ML INJ IM PRN (10:23)
[2020-01-30 10:45] LABS: HEMATOCRIT 42.4 % (35.4-49); HEMOGLOBIN 14.3 GM/dL (11.7-16.9); MCH 33.1 pg (25.7-33.7); MCHC 33.7 g/dl (32.0-35.9); MEAN CELL VOLUME 98.2 fl (80-96); MEAN PLT VOLUME 7.7 fl (7.5-11.1); PLATELET COUNT 290 K/MM3 (134-434); RBC 4.31 M/mm3 (4.00-5.60); RDW 13.9 % (11.9-15.9); WHITE BLOOD COUNT 9.5 K/mm3 (4.0-10.0)
[2020-01-30] MEDS: MAG HYDROX/AL HYDROX/SIMETH 30 ML UNIT-DOSE CUP PO PRN (11:14)
[2020-01-30 11:31] LABS: ALBUMIN 3.8 g/dl (3.4-5.0); BILIRUBIN,TOTAL 1.7 mg/dL (0.2-1); BLOOD UREA NITROGEN 14.4 mg/dL (7-18); CALCIUM 8.9 mg/dL (8.5-10.1); CREATININE 1.2 mg/dL (0.55-1.3); POTASSIUM 3.3 mmol/L (3.5-5.1); TOT PROT 7.4 g/dl (6.4-8.2)
[2020-01-30] MEDS ORDERED: POTASSIUM CHLORIDE TABS 20 MEQ TABLET.ER (FP) PO ONE (16:54)
[2020-01-30] MEDS: MELATONIN 5 MG TABLETS PO SCH (21:37)
[2020-01-30] MEDS: THIAMINE HCL 100 MG TABLET (FP) PO SCH (21:37)
[2020-01-31] MEDS ORDERED: LORazepam 0.5 MG TABLET PO PRN
[2020-01-31] MEDS ORDERED: LORazepam 0.5 MG TABLET PO SCH (05:00)
[2020-01-31] MEDS: diazePAM 5 MG TABLET PO SCH ×2 (05:19→17:27)
[2020-01-31] MEDS ORDERED: PANTOPRAZOLE 20 MG TABLET PO SCH (10:00)
[2020-01-31] MEDS: PRENATAL VITAMINS W/ FOLIC ACID TABLET (FP) PO SCH (10:51)
[2020-01-31] MEDS: LOSARTAN POTASSIUM 50 MG TABLET PO SCH (10:51)
[2020-01-31] MEDS: FAMOTIDINE 20 MG TABLET PO SCH ×2 (10:51→22:06)
[2020-01-31] MEDS: POTASSIUM CHLORIDE TABS 20 MEQ TABLET.ER (FP) PO SCH (10:51)
[2020-01-31] MEDS: NICOTINE 14 MG/24 HOURS TOPICAL PATCH TD SCH (10:51)
[2020-01-31] MEDS: diazePAM 5 MG TABLET PO PRN ×2 (10:53→22:07)
[2020-01-31] MEDS ORDERED: FLU VACCINE (FLULAVAL) PF 60 MCG/0.5 ML SYRINGE 2020-2021 IM ONE (12:00)
[2020-01-31] MEDS: MELATONIN 5 MG TABLETS PO SCH (22:06)
[2020-01-31] MEDS: THIAMINE HCL 100 MG TABLET (FP) PO SCH (22:06)
[2020-02-01] MEDS ORDERED: LORazepam 0.5 MG TABLET PO ONE (05:00)
[2020-02-01] MEDS ORDERED: diazePAM 5 MG TABLET PO ONE (05:00)
[2020-02-01] MEDS: PRENATAL VITAMINS W/ FOLIC ACID TABLET (FP) PO SCH (10:13)
[2020-02-01] MEDS: NICOTINE 14 MG/24 HOURS TOPICAL PATCH TD SCH (10:13)
[2020-02-01] MEDS: POTASSIUM CHLORIDE TABS 20 MEQ TABLET.ER (FP) PO SCH (10:13)
[2020-02-01] MEDS: LOSARTAN POTASSIUM 50 MG TABLET PO SCH (10:13)
[2020-02-01] MEDS: FAMOTIDINE 20 MG TABLET PO SCH ×2 (10:14→22:16)
[2020-02-01 10:34] LABS: ALBUMIN 4.1 g/dl (3.4-5.0); BILIRUBIN,TOTAL 1.2 mg/dL (0.2-1); CALCIUM 9.8 mg/dL (8.5-10.1); POTASSIUM 3.3 mmol/L (3.5-5.1); TOT PROT 8.3 g/dl (6.4-8.2)
[2020-02-01] MEDS: diazePAM 5 MG TABLET PO SCH ×2 (10:43→22:16)
[2020-02-01] MEDS ORDERED: FLU VACCINE (FLULAVAL) PF 60 MCG/0.5 ML SYRINGE 2020-2021 IM ONE (11:00)
[2020-02-01] MEDS: MELATONIN 5 MG TABLETS PO SCH (22:15)
[2020-02-01] MEDS: THIAMINE HCL 100 MG TABLET (FP) PO SCH (22:16)
[2020-02-02] MEDS: MAG HYDROX/AL HYDROX/SIMETH 30 ML UNIT-DOSE CUP PO PRN (05:53)
[2020-02-02] MEDS ORDERED: diazePAM 5 MG TABLET PO ONE (06:00)
[2020-02-02 06:41] VITALS: BP 114/73; PULSE 81; TEMP 97.9
[2020-02-02] MEDS: LOSARTAN POTASSIUM 50 MG TABLET PO SCH (09:35)
[2020-02-02] MEDS: NICOTINE 14 MG/24 HOURS TOPICAL PATCH TD SCH (09:36)
[2020-02-02] MEDS: FAMOTIDINE 20 MG TABLET PO SCH (09:36)
[2020-02-02] MEDS: PRENATAL VITAMINS W/ FOLIC ACID TABLET (FP) PO SCH (09:36)
== END 2020-02-02 10:03 | disposition home or self-care (01) | DRG 775 ==
LOC: YASAS 00:55 → Y3N 01:38
PROVIDERS: ADMIT Allergy & Immunology; ATTEND Allergy & Immunology
PROC: HZ2ZZZZ Detoxification Services for Substance Abuse Treatment (ICD-10-PCS; principal; 2020-01-29)
DX: F10.230 Alcohol dependence with withdrawal, uncomplicated (principal); F17.210 Nicotine dependence, cigarettes, uncomplicated; F41.9 Anxiety disorder, unspecified; F32.9 Major depressive disorder, single episode, unspecified; I10 Essential (primary) hypertension; E11.9 Type 2 diabetes mellitus without complications; Z79.84 Long term (current) use of oral hypoglycemic drugs; K29.20 Alcoholic gastritis without bleeding; Z87.19 Personal history of other diseases of the digestive system; Z91.011 Allergy to milk products; Z56.0 Unemployment, unspecified
CPT/HCPCS: 36415; 80053; 82962; 85027; 86780; 87389; C9803; G0008; Q0162; Q2036; U0003

== ENCOUNTER 2020-05-08 17:43 | Inpatient (IN) | payer OTHER ==
[2020-05-08] MEDS ORDERED: MAGNESIUM CITRATE 300 ML BOTTLE PO PRN (18:38)
[2020-05-08] MEDS ORDERED: IBUPROFEN 400 MG TABLET (FP) PO PRN (18:38)
[2020-05-08] MEDS ORDERED: P-EPHED 60MG/TRIPROLIDI 2.5MG TABLET PO PRN (18:38)
[2020-05-08] MEDS ORDERED: MAG HYDROX/AL HYDROX/SIMETH 30 ML UNIT-DOSE CUP PO PRN (18:38)
[2020-05-08] MEDS ORDERED: ACETAMINOPHEN 325 MG TABLET (FP) PO PRN (18:38)
[2020-05-08] MEDS ORDERED: MAGNESIUM HYDROX 2400MG/30ML ORAL SUSPENSION 30 ML CUP PO PRN (18:38)
[2020-05-08] MEDS ORDERED: guaiFENesin 200 MG/10 ML 10 ML UNIT-DOSE CUPS PO PRN (18:38)
[2020-05-08] MEDS ORDERED: LOPERAMIDE HCL 2 MG CAPSULE PO PRN (18:38)
[2020-05-08] MEDS ORDERED: NICOTINE POLACRILEX 2 MG GUM BC PRN (18:38)
[2020-05-08] MEDS: LOSARTAN POTASSIUM 50 MG TABLET PO SCH (20:26)
[2020-05-08] MEDS: diazePAM 5 MG TABLET PO PRN (21:04)
[2020-05-08] MEDS: diazePAM 5 MG TABLET PO SCH ×2 (21:41→22:41)
[2020-05-08] MEDS ORDERED: hydrOXYzine PAMOATE 25 MG CAPSULE (FP) PO SCH (22:00)
[2020-05-08] MEDS: MELATONIN 5 MG TABLETS PO SCH (22:41)
[2020-05-08] MEDS: THIAMINE HCL 100 MG TABLET (FP) PO SCH (22:41)
[2020-05-09] MEDS: diazePAM 5 MG TABLET PO SCH ×5 (00:24→22:24)
[2020-05-09] MEDS ORDERED: cloNIDine HCL 0.1 MG TABLET PO ONE ×2 (07:47→17:57)
[2020-05-09] MEDS: metFORMIN HCL 500 MG TABLET (FP) PO SCH ×2 (08:03→08:18)
[2020-05-09] MEDS: LOSARTAN POTASSIUM 50 MG TABLET PO SCH (09:18)
[2020-05-09] MEDS: diazePAM 5 MG TABLET PO PRN ×2 (09:18→14:31)
[2020-05-09] MEDS ORDERED: PANTOPRAZOLE 20 MG TABLET PO SCH (10:00)
[2020-05-09] MEDS: PANTOPRAZOLE 40 MG TABLET PO SCH (11:24)
[2020-05-09] MEDS: NICOTINE 7 MG/24 HOURS TOPICAL PATCH TD SCH (11:26)
[2020-05-09] MEDS: PRENATAL VITAMINS W/ FOLIC ACID TABLET (FP) PO SCH (11:29)
[2020-05-09 12:45] LABS: POTASSIUM 4.3 mmol/L (3.5-5.1)
[2020-05-09 12:46] LABS: HEMATOCRIT 46.9 % (35.4-49); HEMOGLOBIN 15.8 GM/dL (11.7-16.9); MCH 32.5 pg (25.7-33.7); MCHC 33.6 g/dl (32.0-35.9); MEAN CELL VOLUME 96.8 fl (80-96); MEAN PLT VOLUME 7.4 fl (7.5-11.1); PLATELET COUNT 399 K/MM3 (134-434); RBC 4.85 M/mm3 (4.00-5.60); RDW 14.6 % (11.9-15.9); WHITE BLOOD COUNT 9.9 K/mm3 (4.0-10.0)
[2020-05-09 12:51] LABS: ALBUMIN 4.5 g/dl (3.4-5.0); BLOOD UREA NITROGEN 8.9 mg/dL (7-18)
[2020-05-09 12:55] LABS: CREATININE 0.9 mg/dL (0.55-1.3)
[2020-05-09 12:57] LABS: BILIRUBIN,TOTAL 0.9 mg/dL (0.2-1); TOT PROT 8.5 g/dl (6.4-8.2)
[2020-05-09 13:10] LABS: SICKLE CELL SCREEN NEGATIVE (NEGATIVE)
[2020-05-09] MEDS: ONDANSETRON *ODT* 4 MG TABLET SL PRN (18:13)
[2020-05-09] MEDS: THIAMINE HCL 100 MG TABLET (FP) PO SCH (22:22)
[2020-05-09] MEDS: MELATONIN 5 MG TABLETS PO SCH (22:22)
[2020-05-10] MEDS: diazePAM 5 MG TABLET PO SCH ×3 (06:21→22:21)
[2020-05-10] MEDS: ONDANSETRON *ODT* 4 MG TABLET SL PRN ×2 (06:23→14:40)
[2020-05-10] MEDS: metFORMIN HCL 500 MG TABLET (FP) PO SCH (07:13)
[2020-05-10] MEDS: LOSARTAN POTASSIUM 50 MG TABLET PO SCH (09:10)
[2020-05-10] MEDS: PRENATAL VITAMINS W/ FOLIC ACID TABLET (FP) PO SCH (09:10)
[2020-05-10] MEDS: PANTOPRAZOLE 40 MG TABLET PO SCH (09:10)
[2020-05-10] MEDS: NICOTINE 7 MG/24 HOURS TOPICAL PATCH TD SCH (09:11)
[2020-05-10] MEDS: diazePAM 5 MG TABLET PO PRN (09:13)
[2020-05-10] MEDS: MELATONIN 5 MG TABLETS PO SCH (22:21)
[2020-05-10] MEDS: THIAMINE HCL 100 MG TABLET (FP) PO SCH (22:22)
[2020-05-11] MEDS: diazePAM 5 MG TABLET PO SCH ×2 (06:10→17:14)
[2020-05-11] MEDS: metFORMIN HCL 500 MG TABLET (FP) PO SCH (10:27)
[2020-05-11] MEDS: diazePAM 5 MG TABLET PO PRN (10:27)
[2020-05-11] MEDS: PANTOPRAZOLE 40 MG TABLET PO SCH (10:28)
[2020-05-11] MEDS: LOSARTAN POTASSIUM 50 MG TABLET PO SCH (10:28)
[2020-05-11] MEDS: PRENATAL VITAMINS W/ FOLIC ACID TABLET (FP) PO SCH (10:29)
[2020-05-11] MEDS: NICOTINE 7 MG/24 HOURS TOPICAL PATCH TD SCH (10:29)
[2020-05-11] MEDS: ONDANSETRON *ODT* 4 MG TABLET SL PRN (17:16)
[2020-05-11] MEDS: MELATONIN 5 MG TABLETS PO SCH (22:15)
[2020-05-11] MEDS: THIAMINE HCL 100 MG TABLET (FP) PO SCH (22:15)
[2020-05-12] MEDS ORDERED: diazePAM 5 MG TABLET PO ONE (06:00)
[2020-05-12] MEDS: metFORMIN HCL 500 MG TABLET (FP) PO SCH (06:30)
[2020-05-12 08:57] VITALS: BP 133/85; PULSE 83; TEMP 98.1
[2020-05-12] MEDS: NICOTINE 7 MG/24 HOURS TOPICAL PATCH TD SCH (11:22)
[2020-05-12] MEDS: PRENATAL VITAMINS W/ FOLIC ACID TABLET (FP) PO SCH (11:22)
[2020-05-12] MEDS: PANTOPRAZOLE 40 MG TABLET PO SCH (11:22)
[2020-05-12] MEDS: LOSARTAN POTASSIUM 50 MG TABLET PO SCH (11:22)
== END 2020-05-12 09:25 | disposition home or self-care (01) | DRG 775 ==
LOC: YASAS 17:43 → Y3N 19:06
PROVIDERS: ADMIT Allergy & Immunology; ATTEND Allergy & Immunology
PROC: HZ2ZZZZ Detoxification Services for Substance Abuse Treatment (ICD-10-PCS; principal; 2020-05-08)
DX: F10.230 Alcohol dependence with withdrawal, uncomplicated (principal); F10.220 Alcohol dependence with intoxication, uncomplicated; F17.210 Nicotine dependence, cigarettes, uncomplicated; F41.9 Anxiety disorder, unspecified; F32.9 Major depressive disorder, single episode, unspecified; E11.65 Type 2 diabetes mellitus with hyperglycemia; E11.43 Type 2 diabetes mellitus with diabetic autonomic (poly)neuropathy; K31.84 Gastroparesis; Z79.84 Long term (current) use of oral hypoglycemic drugs; E80.6 Other disorders of bilirubin metabolism; I10 Essential (primary) hypertension; K29.20 Alcoholic gastritis without bleeding; R74.01 Elevation of levels of liver transaminase levels; Z91.011 Allergy to milk products; Z56.0 Unemployment, unspecified; Z59.0 Homelessness
CPT/HCPCS: 36415; 80053; 82962; 85027; 85660; 86780; 93005; 93010; C9803; J0735; Q0162; U0003

== ENCOUNTER 2020-07-17 19:35 | Inpatient (IN) | payer OTHER ==
[2020-07-17] MEDS ORDERED: SODIUM CHLORIDE 1,000 ML IV STA (19:44)
[2020-07-17] MEDS ORDERED: PANTOPRAZOLE SODIUM 40 MG VIAL IVPUSH ONE (19:44)
[2020-07-17] MEDS ORDERED: LORazepam 2 MG/ML SDV VIAL IVPUSH ONE ×2 (19:45→20:50)
[2020-07-17] MEDS ORDERED: ONDANSETRON 4 MG/2 ML VIAL IVPUSH ONE (19:45)
[2020-07-17] MEDS ORDERED: PANTOPRAZOLE SODIUM 80 MG/200 ML BAG IVPB ONE (19:56)
[2020-07-17] MEDS ORDERED: ONDANSETRON 4 MG/2 ML VIAL ONE (19:57)
[2020-07-17] MEDS ORDERED: LORazepam 2 MG/ML SDV VIAL ONE ×2 (19:57→20:53)
[2020-07-17 20:25] LABS: BASO % 0.6 % (0-2.0); EOS % 0.3 % (0-4.5); HEMATOCRIT 46.2 % (35.4-49); HEMOGLOBIN 15.8 GM/dL (11.7-16.9); LYMPH % 39.8 % (8-40); MCH 32.4 pg (25.7-33.7); MCHC 34.3 g/dl (32.0-35.9); MEAN CELL VOLUME 94.5 fl (80-96); MEAN PLT VOLUME 7.2 fl (7.5-11.1); MONO % 6.5 % (3.8-10.2); NEUT % 52.8 % (42.8-82.8); PLATELET COUNT 258 K/MM3 (134-434); RBC 4.89 M/mm3 (4.00-5.60); RDW 13.3 % (11.9-15.9); WHITE BLOOD COUNT 4.5 K/mm3 (4.0-10.0)
[2020-07-17] MEDS ORDERED: FOLIC ACID INJECTION - 1 MG, THIAMINE HCL 100 MG, MULTIVIT INJECTION ADULT 10 ML in SOD... IVPB ONE (20:25)
[2020-07-17 20:33] LABS: CHLORIDE 103 mmol/L (98-107); SODIUM 138 mmol/L (136-145)
[2020-07-17 20:35] LABS: CALCIUM 8.5 mg/dL (8.5-10.1)
[2020-07-17 20:36] LABS: ALBUMIN 4.1 g/dl (3.4-5.0); ANION GAP 9 MMOL/L (8-16); BLOOD UREA NITROGEN 6.1 mg/dL (7-18); CO2 27 mmol/L (21-32); GLUCOSE,RANDOM 170 mg/dL (74-106); MAGNESIUM 2.2 mg/dL (1.8-2.4)
[2020-07-17 20:39] LABS: CREATININE 0.8 mg/dL (0.55-1.3); SGOT/AST 28 U/L (15-37); SGPT/ALT 34 U/L (13-61)
[2020-07-17 20:41] LABS: BILIRUBIN,TOTAL 0.6 mg/dL (0.2-1); TOT PROT 8.2 g/dl (6.4-8.2)
[2020-07-17 20:42] LABS: ALK PHOS 83 U/L (45-117)
[2020-07-17 20:48] VITALS: BMI 26.4
[2020-07-17 21:31] LABS: EPI CELLS 4 /uL (0-25.1); HYALINE CASTS 0 /uL (0-3.1); URINE APPEARANCE CLEAR; URINE BACTERIA 21 /uL (0-1359); URINE BILIRUBIN 1+ (NEGATIVE); URINE COLOR DK YELLOW; URINE GLUCOSE (UA) 1+ (NEGATIVE); URINE KETONE TRACE (NEGATIVE); URINE LEUK ESTERASE NEGATIVE (NEGATIVE); URINE NITRITE NEGATIVE (NEGATIVE); URINE PROTEIN 2+ (NEGATIVE); URINE RBC 7 /uL (0-23.9); URINE WBC 2 /uL (0-25.8)
[2020-07-17 21:33] LABS: URINE BARBITURATES NEGATIVE ng/ml (CUTOFF=200); URINE BENZODIAZEPINES NEGATIVE ng/ml (CUTOFF=200)
[2020-07-17 21:34] LABS: METHADONE, UR NEGATIVE ng/ml (CUTOFF=300); OPIATES, URI NEGATIVE ng/ml (CUTOFF=300); PHENCYCLIDINE,URINE NEGATIVE ng/ml (CUTOFF=25)
[2020-07-17 21:36] LABS: COCAINE, UR NEGATIVE ng/ml (CUTOFF=300); URINE AMPHETAMINES NEGATIVE ng/ml (CUTOFF=500)
[2020-07-17] MEDS ORDERED: chlordiazePOXIDE HCL 25 MG CAPSULE ONE (22:58)
[2020-07-17] MEDS ORDERED: KCL 10 MEQ IVPB 10 MEQ/100 ML INFUS.BAG IVPB ONE (22:58)
[2020-07-17] MEDS: chlordiazePOXIDE HCL 25 MG CAPSULE PO SCH ×2 (23:14→23:30)
[2020-07-17] MEDS: KCL 10 MEQ IVPB 10 MEQ/100 ML INFUS.BAG IVPB SCH (23:14)
[2020-07-17] MEDS: SODIUM CHLORIDE 1,000 ML IV SCH (23:14)
[2020-07-18] MEDS ORDERED: KCL 10 MEQ IVPB 10 MEQ/100 ML INFUS.BAG IVPB ONE ×2 (00:12→01:24)
[2020-07-18] MEDS: KCL 10 MEQ IVPB 10 MEQ/100 ML INFUS.BAG IVPB SCH ×2 (00:14→01:26)
[2020-07-18] MEDS ORDERED: chlordiazePOXIDE HCL 25 MG CAPSULE PO ONE (00:53)
[2020-07-18] MEDS: chlordiazePOXIDE HCL 25 MG CAPSULE PO PRN ×2 (03:35→15:09)
[2020-07-18] MEDS: ONDANSETRON 4 MG/2 ML VIAL IVPUSH PRN ×2 (06:50→17:37)
[2020-07-18] MEDS: LORazepam 2 MG/ML SDV VIAL IVPUSH PRN ×2 (06:50→20:41)
[2020-07-18] MEDS: chlordiazePOXIDE HCL 25 MG CAPSULE PO SCH ×5 (06:55→22:56)
[2020-07-18 07:25] LABS: HEMOGLOBIN 14.4 GM/dL (11.7-16.9); MCH 33.1 pg (25.7-33.7); MCHC 35.1 g/dl (32.0-35.9); MEAN CELL VOLUME 94.2 fl (80-96); MEAN PLT VOLUME 7.2 fl (7.5-11.1); PLATELET COUNT 230 K/MM3 (134-434); RBC 4.35 M/mm3 (4.00-5.60); RDW 13.2 % (11.9-15.9); WHITE BLOOD COUNT 7.9 K/mm3 (4.0-10.0)
[2020-07-18 07:40] LABS: ALBUMIN 3.6 g/dl (3.4-5.0); BLOOD UREA NITROGEN 5.7 mg/dL (7-18); CALCIUM 7.8 mg/dL (8.5-10.1); MAGNESIUM 1.6 mg/dL (1.8-2.4)
[2020-07-18 07:43] LABS: CREATININE 0.7 mg/dL (0.55-1.3)
[2020-07-18 07:45] LABS: BILIRUBIN,TOTAL 1.2 mg/dL (0.2-1)
[2020-07-18] MEDS ORDERED: POTASSIUM CHLORIDE TABS 20 MEQ TABLET.ER (FP) PO ONE (07:58)
[2020-07-18] MEDS ORDERED: MAGNESIUM OXIDE 400 MG TABLET (FP) PO ONE (07:58)
[2020-07-18] MEDS ORDERED: PANTOPRAZOLE SODIUM 40 MG VIAL IVPUSH SCH (10:00)
[2020-07-18] MEDS: LOSARTAN POTASSIUM 50 MG TABLET PO SCH (10:29)
[2020-07-18] MEDS: THIAMINE HCL 100 MG TABLET (FP) PO SCH (10:30)
[2020-07-18] MEDS: FOLIC ACID 1 MG TABLET (FP) PO SCH (10:30)
[2020-07-18] MEDS: INSULIN SLIDING SCALE (NOVOLOG) 1 VIAL SQ SCH ×3 (11:48→21:18)
[2020-07-18] MEDS: SODIUM CHLORIDE 1,000 ML IV SCH (17:36)
[2020-07-18] MEDS ORDERED: PROMETHAZINE HCL 25 MG/1 ML VIAL IVPUSH ONE (20:26)
[2020-07-19] MEDS ORDERED: chlordiazePOXIDE HCL 10 MG CAPSULE PO PRN
[2020-07-19] MEDS ORDERED: chlordiazePOXIDE 5 MG CAPSULE ONE (05:23)
[2020-07-19] MEDS: SODIUM CHLORIDE 1,000 ML IV SCH ×2 (05:25→06:24)
[2020-07-19] MEDS: chlordiazePOXIDE HCL 10 MG CAPSULE PO SCH ×4 (05:25→22:11)
[2020-07-19] MEDS: INSULIN SLIDING SCALE (NOVOLOG) 1 VIAL SQ SCH ×4 (06:27→21:33)
[2020-07-19 08:09] LABS: BASO % 0.3 % (0-2.0); EOS % 2.9 % (0-4.5); HEMATOCRIT 40.4 % (35.4-49); HEMOGLOBIN 14.3 GM/dL (11.7-16.9); LYMPH % 23.6 % (8-40); MCH 33.1 pg (25.7-33.7); MCHC 35.4 g/dl (32.0-35.9); MEAN CELL VOLUME 93.4 fl (80-96); MEAN PLT VOLUME 7.5 fl (7.5-11.1); MONO % 5.7 % (3.8-10.2); NEUT % 67.5 % (42.8-82.8); PLATELET COUNT 211 K/MM3 (134-434); RBC 4.33 M/mm3 (4.00-5.60); RDW 13.1 % (11.9-15.9); WHITE BLOOD COUNT 6.6 K/mm3 (4.0-10.0)
[2020-07-19 08:26] LABS: INR 0.99 (0.83-1.09); PROTHROMBIN TIME (PATIENT) 12.2 SEC (9.7-13.0)
[2020-07-19] MEDS: ONDANSETRON 4 MG/2 ML VIAL IVPUSH PRN (08:30)
[2020-07-19] MEDS ORDERED: POTASSIUM CHLORIDE TABS 20 MEQ TABLET.ER (FP) PO ONE (08:45)
[2020-07-19 08:56] LABS: ALBUMIN 3.4 g/dl (3.4-5.0); BLOOD UREA NITROGEN 7.8 mg/dL (7-18); CALCIUM 8.8 mg/dL (8.5-10.1)
[2020-07-19 08:59] LABS: CREATININE 0.7 mg/dL (0.55-1.3)
[2020-07-19 09:01] LABS: BILIRUBIN,TOTAL 1.9 mg/dL (0.2-1); TOT PROT 6.7 g/dl (6.4-8.2)
[2020-07-19] MEDS ORDERED: LORazepam 1 MG TABLET PO PRN (09:46)
[2020-07-19] MEDS: PANTOPRAZOLE 40 MG TABLET PO SCH (10:10)
[2020-07-19] MEDS: FOLIC ACID 1 MG TABLET (FP) PO SCH (10:11)
[2020-07-19] MEDS: LOSARTAN POTASSIUM 50 MG TABLET PO SCH (10:11)
[2020-07-19] MEDS: THIAMINE HCL 100 MG TABLET (FP) PO SCH (10:11)
[2020-07-19] MEDS: MULTIVITAMINS (DAILY MVI) TABLET (FP) PO SCH (10:11)
[2020-07-19] MEDS: LORazepam 2 MG/ML SDV VIAL IVPUSH PRN ×2 (10:19→20:30)
[2020-07-20] MEDS: chlordiazePOXIDE HCL 10 MG CAPSULE PO SCH ×2 (04:51→17:13)
[2020-07-20] MEDS: ONDANSETRON 4 MG/2 ML VIAL IVPUSH PRN (05:36)
[2020-07-20 07:43] LABS: BASO % 0.3 % (0-2.0); EOS % 3.6 % (0-4.5); HEMATOCRIT 39.8 % (35.4-49); HEMOGLOBIN 14.3 GM/dL (11.7-16.9); LYMPH % 20.2 % (8-40); MCH 33.6 pg (25.7-33.7); MEAN CELL VOLUME 93.2 fl (80-96); MEAN PLT VOLUME 7.6 fl (7.5-11.1); MONO % 6.1 % (3.8-10.2); NEUT % 69.8 % (42.8-82.8); PLATELET COUNT 207 K/MM3 (134-434); RBC 4.27 M/mm3 (4.00-5.60); RDW 12.9 % (11.9-15.9); WHITE BLOOD COUNT 5.2 K/mm3 (4.0-10.0)
[2020-07-20] MEDS: INSULIN SLIDING SCALE (NOVOLOG) 1 VIAL SQ SCH ×4 (08:05→22:10)
[2020-07-20 08:13] LABS: CALCIUM 8.5 mg/dL (8.5-10.1)
[2020-07-20 08:14] LABS: ALBUMIN 3.5 g/dl (3.4-5.0); MAGNESIUM 1.9 mg/dL (1.8-2.4)
[2020-07-20] MEDS ORDERED: POTASSIUM CHLORIDE TABS 20 MEQ TABLET.ER (FP) PO ONE ×2 (08:14→18:00)
[2020-07-20 08:17] LABS: CREATININE 0.7 mg/dL (0.55-1.3)
[2020-07-20 08:18] LABS: TOT PROT 6.9 g/dl (6.4-8.2)
[2020-07-20] MEDS: LOSARTAN POTASSIUM 50 MG TABLET PO SCH (09:28)
[2020-07-20] MEDS: FOLIC ACID 1 MG TABLET (FP) PO SCH (09:29)
[2020-07-20] MEDS: MULTIVITAMINS (DAILY MVI) TABLET (FP) PO SCH (09:29)
[2020-07-20] MEDS: THIAMINE HCL 100 MG TABLET (FP) PO SCH (09:29)
[2020-07-20] MEDS: PANTOPRAZOLE 40 MG TABLET PO SCH (09:29)
[2020-07-20] MEDS ORDERED: ACETAMINOPHEN 325 MG TABLET (FP) PO ONE (21:03)
[2020-07-20] MEDS: SODIUM CHLORIDE 1,000 ML IV SCH (22:08)
[2020-07-21] MEDS ORDERED: chlordiazePOXIDE HCL 10 MG CAPSULE PO ONE (05:00)
[2020-07-21] MEDS: INSULIN SLIDING SCALE (NOVOLOG) 1 VIAL SQ SCH ×2 (06:00→11:41)
[2020-07-21 08:10] LABS: CALCIUM 8.8 mg/dL (8.5-10.1)
[2020-07-21 08:11] LABS: ALBUMIN 3.7 g/dl (3.4-5.0); BLOOD UREA NITROGEN 3.9 mg/dL (7-18); MAGNESIUM 1.9 mg/dL (1.8-2.4)
[2020-07-21 08:12] LABS: BASO % 0.3 % (0-2.0); EOS % 2.7 % (0-4.5); HEMATOCRIT 42.2 % (35.4-49); HEMOGLOBIN 15.1 GM/dL (11.7-16.9); LYMPH % 21.1 % (8-40); MCH 33.6 pg (25.7-33.7); MCHC 35.8 g/dl (32.0-35.9); MEAN PLT VOLUME 7.7 fl (7.5-11.1); MONO % 7.2 % (3.8-10.2); NEUT % 68.7 % (42.8-82.8); PLATELET COUNT 218 K/MM3 (134-434); RBC 4.49 M/mm3 (4.00-5.60); RDW 13.3 % (11.9-15.9); WHITE BLOOD COUNT 6.2 K/mm3 (4.0-10.0)
[2020-07-21 08:14] LABS: CREATININE 0.7 mg/dL (0.55-1.3)
[2020-07-21 08:15] LABS: BILIRUBIN,TOTAL 0.8 mg/dL (0.2-1)
[2020-07-21 08:16] LABS: TOT PROT 7.3 g/dl (6.4-8.2)
[2020-07-21 08:55] VITALS: BP 141/98; PULSE 83; TEMP 98.3
[2020-07-21] MEDS: THIAMINE HCL 100 MG TABLET (FP) PO SCH (10:07)
[2020-07-21] MEDS: MULTIVITAMINS (DAILY MVI) TABLET (FP) PO SCH (10:07)
[2020-07-21] MEDS: LOSARTAN POTASSIUM 50 MG TABLET PO SCH (10:07)
[2020-07-21] MEDS: PANTOPRAZOLE 40 MG TABLET PO SCH (10:07)
[2020-07-21] MEDS: FOLIC ACID 1 MG TABLET (FP) PO SCH (10:08)
== END 2020-07-21 14:37 | disposition home or self-care (01) | DRG 241 ==
LOC: JER 19:35 → JERBED 22:21 → J4S 07-18 03:11
PROVIDERS: ADMIT Internal Medicine; ATTEND Nurse Practitioner Acute Care
DX: K29.71 Gastritis, unspecified, with bleeding (principal); K92.0 Hematemesis; E83.42 Hypomagnesemia; E27.8 Other specified disorders of adrenal gland; E87.6 Hypokalemia; Z79.84 Long term (current) use of oral hypoglycemic drugs; E11.9 Type 2 diabetes mellitus without complications; I10 Essential (primary) hypertension; R55 Syncope and collapse; F10.230 Alcohol dependence with withdrawal, uncomplicated; Z20.822 Contact with and (suspected) exposure to COVID-19
CPT/HCPCS: 36415; 70450-TC; 71045-TC-FY; 72125-TC; 74177-TC; 76705-TC; 80053; 80307; 81003; 82272; 82550; 82553; 82962; 83735; 84100; 84484; 85025; 85027; 85610; 86850; 86900; 86901; 87086; 93005; 93010; 99285-25; C9803; U0003; U0005

== ENCOUNTER 2020-10-19 23:35 | Inpatient (IN) | payer OTHER ==
[2020-10-20] MEDS ORDERED: FAMOTIDINE 20 MG/50 ML IVPB 20 MG/50 ML MG IVPB ONE (00:48)
[2020-10-20] MEDS ORDERED: LORazepam 2 MG/ML SDV VIAL IVPUSH ONE ×2 (00:48→09:29)
[2020-10-20] MEDS ORDERED: ONDANSETRON 4 MG/2 ML VIAL IVPUSH ONE (00:48)
[2020-10-20] MEDS ORDERED: LORazepam 2 MG/ML SDV VIAL ONE ×3 (00:59→14:14)
[2020-10-20] MEDS ORDERED: ONDANSETRON 4 MG/2 ML VIAL ONE (00:59)
[2020-10-20] MEDS ORDERED: chlordiazePOXIDE HCL 25 MG CAPSULE PO ONE (01:11)
[2020-10-20 01:29] LABS: BASO % 1.7 % (0-2.0); EOS % 0.8 % (0-4.5); HEMATOCRIT 47.1 % (35.4-49); HEMOGLOBIN 16.3 GM/dL (11.7-16.9); LYMPH % 36.9 % (8-40); MCH 32.7 pg (25.7-33.7); MCHC 34.7 g/dl (32.0-35.9); MEAN CELL VOLUME 94.3 fl (80-96); MEAN PLT VOLUME 6.4 fl (7.5-11.1); MONO % 7.9 % (3.8-10.2); NEUT % 52.7 % (42.8-82.8); PLATELET COUNT 451 10^3/uL (134-434); RDW 13.2 % (11.9-15.9); WHITE BLOOD COUNT 5.7 K/mm3 (4.0-10.0)
[2020-10-20 01:39] LABS: INR 0.96 (0.83-1.09); PROTHROMBIN TIME (PATIENT) 11.8 SEC (9.7-13.0)
[2020-10-20 01:48] LABS: CHLORIDE 104 mmol/L (98-107); SODIUM 142 mmol/L (136-145)
[2020-10-20 01:50] LABS: ALBUMIN 4.3 g/dl (3.4-5.0); ANION GAP 10 MMOL/L (8-16); BLOOD UREA NITROGEN 7.4 mg/dL (7-18); CALCIUM 9.9 mg/dL (8.5-10.1); CO2 28 mmol/L (21-32)
[2020-10-20 01:51] LABS: GLUCOSE,RANDOM 111 mg/dL (74-106)
[2020-10-20 01:54] LABS: CREATININE 0.7 mg/dL (0.55-1.3); SGOT/AST 33 U/L (15-37); SGPT/ALT 49 U/L (13-61)
[2020-10-20 01:55] LABS: BILIRUBIN,TOTAL 0.5 mg/dL (0.2-1); TOT PROT 8.2 g/dl (6.4-8.2)
[2020-10-20 01:56] LABS: ALK PHOS 95 U/L (45-117)
[2020-10-20] MEDS ORDERED: chlordiazePOXIDE HCL 25 MG CAPSULE ONE ×2 (02:21→10:46)
[2020-10-20] MEDS ORDERED: FOLIC ACID INJECTION - 1 MG, THIAMINE HCL 200 MG, MULTIVIT INJECTION ADULT 10 ML in SOD... IVPB ONE (04:02)
[2020-10-20] MEDS ORDERED: ACETAMINOPHEN 325 MG TABLET (FP) PO PRN (05:24)
[2020-10-20] MEDS ORDERED: METOCLOPRAMIDE HCL INJECTION 10 MG/2 ML VIAL IVPUSH PRN (05:25)
[2020-10-20] MEDS ORDERED: MAG HYDROX/AL HYDROX/SIMETH 30 ML UNIT-DOSE CUP PO PRN (05:26)
[2020-10-20] MEDS ORDERED: LORazepam 2 MG/ML SDV VIAL IVPUSH PRN ×2 (05:27→13:38)
[2020-10-20] MEDS ORDERED: chlordiazePOXIDE HCL 25 MG CAPSULE PO PRN (05:27)
[2020-10-20] MEDS ORDERED: HEPARIN NA (PORCINE) 5,000 UNITS/ML 1ML VIAL ONE ×2 (07:03→14:15)
[2020-10-20] MEDS: HEPARIN NA (PORCINE) 5,000 UNITS/ML 1ML VIAL SQ SCH ×3 (07:07→21:36)
[2020-10-20] MEDS: INSULIN SLIDING SCALE (NOVOLOG) 1 VIAL SQ SCH ×4 (07:14→21:37)
[2020-10-20 07:38] LABS: HEMATOCRIT 43.2 % (35.4-49); HEMOGLOBIN 14.8 GM/dL (11.7-16.9); MCH 32.5 pg (25.7-33.7); MCHC 34.4 g/dl (32.0-35.9); MEAN CELL VOLUME 94.6 fl (80-96); MEAN PLT VOLUME 6.4 fl (7.5-11.1); PLATELET COUNT 387 10^3/uL (134-434); RBC 4.56 M/mm3 (4.00-5.60); RDW 13.4 % (11.9-15.9); WHITE BLOOD COUNT 4.7 K/mm3 (4.0-10.0)
[2020-10-20 07:59] LABS: CALCIUM 8.6 mg/dL (8.5-10.1); LIPASE 93 U/L (73-393)
[2020-10-20 08:01] LABS: ALBUMIN 3.6 g/dl (3.4-5.0); BLOOD UREA NITROGEN 8.4 mg/dL (7-18)
[2020-10-20 08:03] LABS: CREATININE 0.6 mg/dL (0.55-1.3); PHOSPHOROUS 4.6 mg/dL (2.5-4.9)
[2020-10-20 08:04] LABS: BILIRUBIN,TOTAL 0.7 mg/dL (0.2-1); IRON SERUM 227 ug/dL (50-175)
[2020-10-20 08:06] LABS: TOTAL IRON BINDING CAPACITY 374 ug/dL (250-450)
[2020-10-20] MEDS ORDERED: THIAMINE HCL 200 MG/2 ML VIAL ONE (08:19)
[2020-10-20] MEDS ORDERED: THIAMINE HCL 200 MG/2 ML VIAL IVPB ONE (09:00)
[2020-10-20] MEDS ORDERED: PANTOPRAZOLE 40 MG TABLET ONE (09:33)
[2020-10-20] MEDS ORDERED: ACETAMINOPHEN 500 MG TABLET (FP) PO PRN (09:35)
[2020-10-20] MEDS: PANTOPRAZOLE 40 MG TABLET PO SCH (09:41)
[2020-10-20] MEDS ORDERED: chlordiazePOXIDE HCL 25 MG CAPSULE PO SCH (11:00)
[2020-10-20] MEDS ORDERED: METOCLOPRAMIDE HCL INJECTION 10 MG/2 ML VIAL ONE (14:21)
[2020-10-20] MEDS: SODIUM CHLORIDE 1,000 ML IV SCH (14:48)
[2020-10-20] MEDS ORDERED: LORazepam 1 MG TABLET PO PRN (16:19)
[2020-10-20] MEDS ORDERED: LORazepam 1 MG TABLET ONE (16:39)
[2020-10-20] MEDS: LORazepam 1 MG TABLET PO SCH ×2 (16:43→22:56)
[2020-10-20] MEDS ORDERED: MAG HYDROX/AL HYDROX/SIMETH 30 ML UNIT-DOSE CUP ONE (17:21)
[2020-10-20] MEDS: LISINOPRIL 5 MG TABLET PO SCH (18:31)
[2020-10-20 19:06] VITALS: BMI 23.6
[2020-10-21 00:44] LABS: URINE AMPHETAMINES NEGATIVE (NEGATIVE); URINE BARBITURATES NEGATIVE (NEGATIVE)
[2020-10-21 00:45] LABS: COCAINE, UR NEGATIVE (NEGATIVE); OPIATES, URI NEGATIVE (NEGATIVE); PHENCYCLIDINE,URINE NEGATIVE (NEGATIVE)
[2020-10-21 00:46] LABS: METHADONE, UR NEGATIVE (NEGATIVE); URINE BENZODIAZEPINES POSITIVE (NEGATIVE)
[2020-10-21] MEDS: SODIUM CHLORIDE 1,000 ML IV SCH ×3 (03:48→14:53)
[2020-10-21] MEDS: HEPARIN NA (PORCINE) 5,000 UNITS/ML 1ML VIAL SQ SCH ×3 (05:13→22:25)
[2020-10-21] MEDS: LORazepam 1 MG TABLET PO SCH ×4 (05:13→22:26)
[2020-10-21] MEDS: INSULIN SLIDING SCALE (NOVOLOG) 1 VIAL SQ SCH ×4 (06:37→21:06)
[2020-10-21 07:32] LABS: EOS % 3.3 % (0-4.5); HEMATOCRIT 41.3 % (35.4-49); HEMOGLOBIN 13.9 GM/dL (11.7-16.9); LYMPH % 29.3 % (8-40); MCH 32.3 pg (25.7-33.7); MCHC 33.7 g/dl (32.0-35.9); MEAN CELL VOLUME 95.8 fl (80-96); MEAN PLT VOLUME 6.9 fl (7.5-11.1); MONO % 5.5 % (3.8-10.2); NEUT % 60.9 % (42.8-82.8); PLATELET COUNT 341 10^3/uL (134-434); RBC 4.31 M/mm3 (4.00-5.60); RDW 12.5 % (11.9-15.9); WHITE BLOOD COUNT 6.5 K/mm3 (4.0-10.0)
[2020-10-21 07:43] LABS: ALBUMIN 3.4 g/dl (3.4-5.0); BLOOD UREA NITROGEN 8.8 mg/dL (7-18); MAGNESIUM 1.7 mg/dL (1.8-2.4)
[2020-10-21 07:46] LABS: CREATININE 0.7 mg/dL (0.55-1.3)
[2020-10-21 07:48] LABS: BILIRUBIN,TOTAL 1.7 mg/dL (0.2-1); TOT PROT 6.2 g/dl (6.4-8.2)
[2020-10-21] MEDS: LISINOPRIL 5 MG TABLET PO SCH (09:27)
[2020-10-21] MEDS: MULTIVITAMINS (DAILY MVI) TABLET (FP) PO SCH (09:27)
[2020-10-21] MEDS: THIAMINE HCL 100 MG TABLET (FP) PO SCH ×2 (09:27→22:26)
[2020-10-21] MEDS: PANTOPRAZOLE 40 MG TABLET PO SCH ×2 (09:27→22:26)
[2020-10-21] MEDS: METOCLOPRAMIDE HCL INJECTION 10 MG/2 ML VIAL IVPUSH SCH ×2 (11:39→21:03)
[2020-10-22] MEDS: METOCLOPRAMIDE HCL INJECTION 10 MG/2 ML VIAL IVPUSH SCH ×2 (03:59→09:18)
[2020-10-22] MEDS ORDERED: chlordiazePOXIDE HCL 25 MG CAPSULE PO SCH (05:00)
[2020-10-22] MEDS: LORazepam 1 MG TABLET PO SCH ×4 (05:21→22:00)
[2020-10-22] MEDS: HEPARIN NA (PORCINE) 5,000 UNITS/ML 1ML VIAL SQ SCH ×3 (05:21→21:58)
[2020-10-22] MEDS: INSULIN SLIDING SCALE (NOVOLOG) 1 VIAL SQ SCH ×4 (06:35→22:00)
[2020-10-22 06:52] LABS: BASO % 0.6 % (0-2.0); EOS % 3.1 % (0-4.5); HEMATOCRIT 38.6 % (35.4-49); HEMOGLOBIN 13.3 GM/dL (11.7-16.9); LYMPH % 19.8 % (8-40); MCH 32.5 pg (25.7-33.7); MCHC 34.6 g/dl (32.0-35.9); MEAN PLT VOLUME 6.9 fl (7.5-11.1); MONO % 5.3 % (3.8-10.2); NEUT % 71.2 % (42.8-82.8); PLATELET COUNT 303 10^3/uL (134-434); RDW 12.6 % (11.9-15.9); WHITE BLOOD COUNT 6.7 K/mm3 (4.0-10.0)
[2020-10-22 07:19] LABS: ALBUMIN 3.4 g/dl (3.4-5.0); BLOOD UREA NITROGEN 5.5 mg/dL (7-18); CALCIUM 8.2 mg/dL (8.5-10.1); MAGNESIUM 1.8 mg/dL (1.8-2.4)
[2020-10-22 07:23] LABS: BILIRUBIN,TOTAL 0.9 mg/dL (0.2-1); TOT PROT 6.4 g/dl (6.4-8.2)
[2020-10-22 07:28] LABS: CREATININE 0.5 mg/dL (0.55-1.3)
[2020-10-22] MEDS ORDERED: POTASSIUM CHLORIDE TABS 20 MEQ TABLET.ER (FP) PO ONE (08:57)
[2020-10-22] MEDS: THIAMINE HCL 100 MG TABLET (FP) PO SCH ×2 (09:18→22:00)
[2020-10-22] MEDS: LISINOPRIL 5 MG TABLET PO SCH (09:18)
[2020-10-22] MEDS: MULTIVITAMINS (DAILY MVI) TABLET (FP) PO SCH (09:18)
[2020-10-22] MEDS: PANTOPRAZOLE 40 MG TABLET PO SCH ×2 (09:19→22:04)
[2020-10-22] MEDS: SODIUM CHLORIDE 1,000 ML IV SCH ×2 (10:18→10:55)
[2020-10-23] MEDS ORDERED: LORazepam 0.5 MG TABLET PO PRN
[2020-10-23] MEDS ORDERED: chlordiazePOXIDE HCL 10 MG CAPSULE PO PRN
[2020-10-23] MEDS ORDERED: chlordiazePOXIDE HCL 10 MG CAPSULE PO SCH (05:00)
[2020-10-23] MEDS: HEPARIN NA (PORCINE) 5,000 UNITS/ML 1ML VIAL SQ SCH ×3 (05:41→21:45)
[2020-10-23] MEDS: LORazepam 0.5 MG TABLET PO SCH ×4 (05:41→22:01)
[2020-10-23] MEDS: INSULIN SLIDING SCALE (NOVOLOG) 1 VIAL SQ SCH ×4 (06:19→21:44)
[2020-10-23 07:48] LABS: BASO % 0.4 % (0-2.0); EOS % 2.4 % (0-4.5); HEMATOCRIT 40.7 % (35.4-49); HEMOGLOBIN 13.8 GM/dL (11.7-16.9); LYMPH % 21.2 % (8-40); MCH 32.1 pg (25.7-33.7); MCHC 33.8 g/dl (32.0-35.9); MEAN CELL VOLUME 94.8 fl (80-96); MEAN PLT VOLUME 7.6 fl (7.5-11.1); MONO % 5.6 % (3.8-10.2); NEUT % 70.4 % (42.8-82.8); PLATELET COUNT 316 10^3/uL (134-434); RDW 12.3 % (11.9-15.9); WHITE BLOOD COUNT 7.6 K/mm3 (4.0-10.0)
[2020-10-23 07:58] LABS: ALBUMIN 3.6 g/dl (3.4-5.0); BLOOD UREA NITROGEN 6.9 mg/dL (7-18); CALCIUM 8.6 mg/dL (8.5-10.1)
[2020-10-23 07:59] LABS: MAGNESIUM 1.8 mg/dL (1.8-2.4)
[2020-10-23 08:01] LABS: CREATININE 0.5 mg/dL (0.55-1.3)
[2020-10-23 08:02] LABS: TOT PROT 6.8 g/dl (6.4-8.2)
[2020-10-23] MEDS ORDERED: POTASSIUM CHLORIDE TABS 20 MEQ TABLET.ER (FP) PO ONE (08:18)
[2020-10-23] MEDS: SODIUM CHLORIDE 1,000 ML IV SCH ×3 (08:33→18:39)
[2020-10-23] MEDS: THIAMINE HCL 100 MG TABLET (FP) PO SCH ×2 (09:28→21:45)
[2020-10-23] MEDS: MULTIVITAMINS (DAILY MVI) TABLET (FP) PO SCH (09:28)
[2020-10-23] MEDS: LISINOPRIL 5 MG TABLET PO SCH (09:28)
[2020-10-23] MEDS: PANTOPRAZOLE 40 MG TABLET PO SCH ×2 (09:28→21:45)
[2020-10-23] MEDS ORDERED: INSULIN (NOVOLOG) ASPART 100 UNITS/ML 10ML VIAL ONE (21:35)
[2020-10-24] MEDS ORDERED: LORazepam 0.5 MG TABLET PO ONE (05:00)
[2020-10-24] MEDS ORDERED: chlordiazePOXIDE HCL 10 MG CAPSULE PO SCH (05:00)
[2020-10-24 05:24] VITALS: TEMP 98.5
[2020-10-24] MEDS: SODIUM CHLORIDE 1,000 ML IV SCH (05:25)
[2020-10-24] MEDS: HEPARIN NA (PORCINE) 5,000 UNITS/ML 1ML VIAL SQ SCH (05:43)
[2020-10-24] MEDS: INSULIN SLIDING SCALE (NOVOLOG) 1 VIAL SQ SCH ×2 (05:59→11:35)
[2020-10-24 08:04] VITALS: BP 110/72; PULSE 62
[2020-10-24 08:12] LABS: BASO % 0.3 % (0-2.0); EOS % 2.7 % (0-4.5); HEMATOCRIT 40.9 % (35.4-49); HEMOGLOBIN 14.2 GM/dL (11.7-16.9); LYMPH % 23.9 % (8-40); MCH 32.5 pg (25.7-33.7); MCHC 34.7 g/dl (32.0-35.9); MEAN CELL VOLUME 93.7 fl (80-96); MEAN PLT VOLUME 7.4 fl (7.5-11.1); MONO % 6.6 % (3.8-10.2); NEUT % 66.5 % (42.8-82.8); PLATELET COUNT 289 10^3/uL (134-434); RBC 4.36 M/mm3 (4.00-5.60); RDW 12.6 % (11.9-15.9); WHITE BLOOD COUNT 7.4 K/mm3 (4.0-10.0)
[2020-10-24 08:50] LABS: BLOOD UREA NITROGEN 9.2 mg/dL (7-18); MAGNESIUM 1.9 mg/dL (1.8-2.4)
[2020-10-24 08:51] LABS: ALBUMIN 3.6 g/dl (3.4-5.0)
[2020-10-24 08:52] LABS: TOT PROT 6.8 g/dl (6.4-8.2)
[2020-10-24 08:53] LABS: CREATININE 0.5 mg/dL (0.55-1.3)
[2020-10-24 08:54] LABS: CALCIUM 8.7 mg/dL (8.5-10.1)
[2020-10-24 08:55] LABS: BILIRUBIN,TOTAL 0.6 mg/dL (0.2-1)
[2020-10-24] MEDS: LISINOPRIL 5 MG TABLET PO SCH (09:25)
[2020-10-24] MEDS: THIAMINE HCL 100 MG TABLET (FP) PO SCH (09:25)
[2020-10-24] MEDS: PANTOPRAZOLE 40 MG TABLET PO SCH (09:26)
[2020-10-24] MEDS: MULTIVITAMINS (DAILY MVI) TABLET (FP) PO SCH (09:26)
[2020-10-25] MEDS ORDERED: chlordiazePOXIDE HCL 10 MG CAPSULE PO ONE (05:00)
== END 2020-10-24 11:37 | disposition home or self-care (01) | DRG 249 ==
LOC: JER 23:35 → JERBED 10-20 03:57 → J4W 10-20 17:34
PROVIDERS: ADMIT Hospitalist; ATTEND Nurse Practitioner Acute Care
PROC: HZ2ZZZZ Detoxification Services for Substance Abuse Treatment (ICD-10-PCS; principal; 2020-10-20)
DX: R11.2 Nausea with vomiting, unspecified (principal); R00.0 Tachycardia, unspecified; K29.20 Alcoholic gastritis without bleeding; E11.9 Type 2 diabetes mellitus without complications; F10.251 Alcohol dependence with alcohol-induced psychotic disorder with hallucinations; I10 Essential (primary) hypertension; F41.8 Other specified anxiety disorders; K21.00 Gastro-esophageal reflux disease with esophagitis, without bleeding; R00.2 Palpitations; D47.3 Essential (hemorrhagic) thrombocythemia; F10.239 Alcohol dependence with withdrawal, unspecified
CPT/HCPCS: 36415; 70450-TC; 74176-TC; 80053; 80307; 82607; 82746; 82962; 83036; 83540; 83550; 83690; 83735; 84100; 84484; 85025; 85027; 85610; 85730; 93005; 93010; 97116-GP; 97161-GP; 99285-25; C9803; J1644; U0003; U0005

== ENCOUNTER 2020-11-18 21:26 | Inpatient (IN) | payer OTHER ==
[2020-11-18 22:20] VITALS: BMI 24.3
[2020-11-18] MEDS ORDERED: MENTHOL/PHENOL 1 EACH UD MM PRN (22:42)
[2020-11-18] MEDS ORDERED: MAGNESIUM CITRATE 300 ML BOTTLE PO PRN (22:42)
[2020-11-18] MEDS ORDERED: IBUPROFEN 400 MG TABLET (FP) PO PRN (22:42)
[2020-11-18] MEDS ORDERED: LORazepam 1 MG TABLET PO PRN (22:42)
[2020-11-18] MEDS ORDERED: NICOTINE POLACRILEX 2 MG GUM BUC PRN (22:42)
[2020-11-18] MEDS ORDERED: ACETAMINOPHEN 325 MG TABLET (FP) PO PRN ×2 (22:42)
[2020-11-18] MEDS ORDERED: MAGNESIUM HYDROX 2400MG/30ML ORAL SUSPENSION 30 ML CUP PO PRN (22:42)
[2020-11-18] MEDS ORDERED: LORazepam 2 MG TABLET ONE (23:50)
[2020-11-18] MEDS ORDERED: ONDANSETRON *ODT* 4 MG TABLET ONE (23:50)
[2020-11-18] MEDS: LORazepam 1 MG TABLET PO SCH (23:53)
[2020-11-19] MEDS ORDERED: METHOCARBAMOL 500 MG TABLET ONE (01:08)
[2020-11-19] MEDS ORDERED: cloNIDine HCL 0.1 MG TABLET PO ONE (01:32)
[2020-11-19] MEDS: LOSARTAN POTASSIUM 50 MG TABLET PO SCH ×2 (01:49→10:26)
[2020-11-19] MEDS: LORazepam 1 MG TABLET PO SCH ×4 (05:42→22:24)
[2020-11-19] MEDS: METHOCARBAMOL 500 MG TABLET PO PRN (05:42)
[2020-11-19] MEDS: MAG HYDROX/AL HYDROX/SIMETH 30 ML UNIT-DOSE CUP PO PRN (05:45)
[2020-11-19] MEDS ORDERED: TRIMETHOBENZAMIDE HCL 200MG/2ML INJ IM PRN ×2 (09:13→14:10)
[2020-11-19] MEDS ORDERED: metFORMIN HCL 500 MG TABLET (FP) PO SCH (10:00)
[2020-11-19 10:07] LABS: HEMATOCRIT 42.9 % (35.4-49); HEMOGLOBIN 15.1 GM/dL (11.7-16.9); MCH 32.5 pg (25.7-33.7); MCHC 35.1 g/dl (32.0-35.9); MEAN CELL VOLUME 92.6 fl (80-96); PLATELET COUNT 302 10^3/uL (134-434); RBC 4.64 M/mm3 (4.00-5.60); RDW 13.1 % (11.9-15.9); WHITE BLOOD COUNT 7.6 K/mm3 (4.0-10.0)
[2020-11-19 10:14] LABS: BLOOD UREA NITROGEN 12.2 mg/dL (7-18); CALCIUM 8.5 mg/dL (8.5-10.1)
[2020-11-19 10:17] LABS: CREATININE 0.7 mg/dL (0.55-1.3)
[2020-11-19 10:18] LABS: BILIRUBIN,TOTAL 1.3 mg/dL (0.2-1); TOT PROT 7.6 g/dl (6.4-8.2)
[2020-11-19] MEDS: PRENATAL VITAMINS W/ FOLIC ACID TABLET (FP) PO SCH (10:26)
[2020-11-19] MEDS: ONDANSETRON *ODT* 4 MG TABLET SL PRN (10:29)
[2020-11-19] MEDS ORDERED: POTASSIUM CHLORIDE ORAL LIQUID 20 MEQ/15 ML PO ONE (10:55)
[2020-11-19 12:04] LABS: HIV INTERPRETATION NEGATIVE (NEGATIVE)
[2020-11-19] MEDS: THIAMINE HCL 100 MG TABLET (FP) PO SCH (22:24)
[2020-11-19] MEDS: BISMUTH SUBSALICYLATE 524 MG/30 ML PO PRN (22:25)
[2020-11-19] MEDS: POTASSIUM CHLORIDE ORAL LIQUID 20 MEQ/15 ML PO SCH (22:25)
[2020-11-19] MEDS: MELATONIN 5 MG TABLETS PO SCH (22:26)
[2020-11-20] MEDS: LORazepam 1 MG TABLET PO SCH ×4 (05:36→22:17)
[2020-11-20] MEDS: BISMUTH SUBSALICYLATE 524 MG/30 ML PO PRN (05:37)
[2020-11-20] MEDS: METHOCARBAMOL 500 MG TABLET PO PRN ×2 (05:37→22:19)
[2020-11-20] MEDS: metFORMIN HCL 500 MG TABLET (FP) PO SCH (06:00)
[2020-11-20] MEDS: PRENATAL VITAMINS W/ FOLIC ACID TABLET (FP) PO SCH (10:11)
[2020-11-20] MEDS: POTASSIUM CHLORIDE ORAL LIQUID 20 MEQ/15 ML PO SCH (10:11)
[2020-11-20] MEDS: LOSARTAN POTASSIUM 50 MG TABLET PO SCH (10:12)
[2020-11-20] MEDS: ONDANSETRON *ODT* 4 MG TABLET SL PRN (10:13)
[2020-11-20] MEDS ORDERED: PANTOPRAZOLE 40 MG TABLET PO ONE (11:36)
[2020-11-20] MEDS: MAG HYDROX/AL HYDROX/SIMETH 30 ML UNIT-DOSE CUP PO PRN (18:19)
[2020-11-20] MEDS: MELATONIN 5 MG TABLETS PO SCH (22:17)
[2020-11-20] MEDS: THIAMINE HCL 100 MG TABLET (FP) PO SCH (22:17)
[2020-11-21] MEDS ORDERED: LORazepam 0.5 MG TABLET PO PRN
[2020-11-21] MEDS: LORazepam 0.5 MG TABLET PO SCH ×4 (05:46→22:35)
[2020-11-21] MEDS: METHOCARBAMOL 500 MG TABLET PO PRN ×2 (05:47→22:35)
[2020-11-21] MEDS: ONDANSETRON *ODT* 4 MG TABLET SL PRN ×2 (05:47→22:35)
[2020-11-21] MEDS: metFORMIN HCL 500 MG TABLET (FP) PO SCH (06:41)
[2020-11-21] MEDS ORDERED: PANTOPRAZOLE 40 MG TABLET PO SCH (10:00)
[2020-11-21] MEDS: PRENATAL VITAMINS W/ FOLIC ACID TABLET (FP) PO SCH (10:03)
[2020-11-21] MEDS: LOSARTAN POTASSIUM 50 MG TABLET PO SCH (10:03)
[2020-11-21] MEDS ORDERED: NICOTINE 10 MG CARTRIDGE (INHALER) IH PRN (12:28)
[2020-11-21] MEDS: THIAMINE HCL 100 MG TABLET (FP) PO SCH (22:35)
[2020-11-21] MEDS: MELATONIN 5 MG TABLETS PO SCH (22:37)
[2020-11-22] MEDS ORDERED: LORazepam 0.5 MG TABLET PO ONE (05:00)
[2020-11-22] MEDS: METHOCARBAMOL 500 MG TABLET PO PRN (05:28)
[2020-11-22] MEDS: MAG HYDROX/AL HYDROX/SIMETH 30 ML UNIT-DOSE CUP PO PRN (05:28)
[2020-11-22 06:43] VITALS: BP 124/80; PULSE 70; TEMP 97.1
[2020-11-22] MEDS: metFORMIN HCL 500 MG TABLET (FP) PO SCH (07:13)
== END 2020-11-22 09:29 | disposition home or self-care (01) | DRG 775 ==
LOC: YASAS 21:26 → Y3N 23:56
PROVIDERS: ADMIT Allergy & Immunology; ATTEND Allergy & Immunology
PROC: HZ2ZZZZ Detoxification Services for Substance Abuse Treatment (ICD-10-PCS; principal; 2020-11-18)
DX: F10.230 Alcohol dependence with withdrawal, uncomplicated (principal); F10.220 Alcohol dependence with intoxication, uncomplicated; F17.210 Nicotine dependence, cigarettes, uncomplicated; F41.9 Anxiety disorder, unspecified; I10 Essential (primary) hypertension; E11.9 Type 2 diabetes mellitus without complications; K29.70 Gastritis, unspecified, without bleeding; R00.0 Tachycardia, unspecified; Z79.84 Long term (current) use of oral hypoglycemic drugs; Z56.0 Unemployment, unspecified
CPT/HCPCS: 36415; 80053; 82962; 84132; 85027; 86780; 87389; C9803; Q0162; U0003; U0005